=== PATIENT | female | born 1985 | race Caucasian/White ===

== ENCOUNTER 2016-11-04 23:28 | Emergency (ER) | payer OTHER ==
--- NOTE | 2016-11-05 04:10 | ED CLINICAL REPORT ---
Clinical Report - Physicians/Mid Levels [facility] [address] [place] [address] 11/04/2016 23:30 Patient: HARLEY ACOSTA Time Seen: 2341; initial patient contact. Arrived- By private vehicle. Historian- patient. HISTORY OF PRESENT ILLNESS Chief Complaint: PELVIC PAIN and VAGINAL BLEEDING. This started about 2 days ago and now gone. It was abrupt in onset. The symptoms are described as mild. Modifying factors. Not worsened by anything. Not relieved by anything. The patient has had mild, constant, sharp suprapubic pelvic pain with vaginal bleeding. No vaginal discharge or fever. No vaginal pain, low back pain, flank pain, irregular periods or abnormal bleeding. No vaginal discharge. The patient missed her last period (6 weeks ago). Last normal menstrual period was 4 weeks ago. Sexually active. Possibly . Recently diagnosed. confirmed with home test. Not receiving care. Similar symptoms previously: None. Recent medical care: Not recently seen/assessed. REVIEW OF SYSTEMS The patient has had nausea. No vomiting, diarrhea, fever or chills. All systems otherwise negative, except as recorded above. PAST HISTORY See nurses notes. Surgeries: No history of previous surgery. Additional Surgeries: no known surgeries. SOCIAL HISTORY Former smoker. No alcohol use or drug use. ADDITIONAL NOTES The nursing notes have been reviewed with agreement regarding the chief complaint, PMH and patient medications and allergies. PHYSICAL EXAM Vital Signs: 11/04/2016 23:35 BP: 127/71. HR: 107. RR: 16. O2 saturation: 100%. Temp: 98.8 F. Pain level now: 6/10. Have been reviewed. Hypertensive. Tachycardic. Respiratory rate normal. Temperature normal. Oxygen saturation normal. Appearance: Alert. Oriented X3. No acute distress. ENT: Pharynx normal. CVS: Heart sounds normal. Rate normal. Rhythm normal. Respiratory: No respiratory distress. Breath sounds normal. Abdomen: Soft. Mild tenderness in the suprapubic area. No guarding or rebound tenderness. Bowel sounds normal. No mass. Back: Normal external inspection. No CVA tenderness. : Speculum and bimanual exam performed. External inspection normal. Speculum exam normal. Bimanual exam normal. (Female RN Anca Sharp present for pelvic exam). Skin: Normal skin color. Neuro: Oriented X 3. LABS, X-RAYS, AND EKG Pelvic Sonogram: No ectopic or free fluid. Single IUP ~ 3.5 weeks. The study was interpreted by the radiologist and discussed with the radiologist. Laboratory Tests: Serum Quantitative: (NATALIE: 11/05/2016 00:01) ( [facility] [place] 11/05/2016 01:10) Final results Test Result Flag Units (Reference) BETA HCG, QUANTITATIVE 3727 mIU/mL REFERENCE RANGE:Adult Males: <2 mIU/mLNon- Females: <6 mIU/mL Females:Approximate Approximate hCGGestational Age Range (mIU/mL) 0-1 week 0-501-2 weeks 40-3002-3 weeks 100-27626-9 weeks 500-01241-3 months 5,000-200,0002-3 months 10,000-100,0002nd trimester 3,000-50,0003rd trimester 1,000-50,000 UA-Culture if indicated: (NATALIE: 11/04/2016 00:01) ( [facility] 11/05/2016 00:58) Final results Test Result Flag Units (Reference) URINE COLOR ORANGE URINE APPEARANCE SL CLOUDY URINE GLUCOSE 1+ (NEGATIVE) URINE BILIRUBIN NEGATIVE (NEGATIVE) URINE BILIRUBIN ICTOTEST NEGATIVE (NEGATIVE) URINE KETONE TRACE (NEGATIVE) URINE SPECIFIC GRAVITY 1.010 (1.010-1.030) URINE PH 5.0 (5.0-8.0) URINE PROTEIN 3+ (NEGATIVE) URINE UROBILINOGEN >=8.0 EU/dL (0.2-1.0) POSSIBLE COLOR INTERFERENCE URINE NITRITE POSITIVE (NEGATIVE) POSSIBLE COLOR INTERFERENCE URINE BLOOD 3+ (NEGATIVE) POSSIBLE COLOR INTERFERENCE URINE LEUK ESTERASE POSITIVE (NEGATIVE) POSSIBLE COLOR INTERFERENCE URINE RBC 1-3 rbc/hpf (0-1) URINE WBC 3-5 wbc/hpf (0-1) URINE EPITHELIAL CELLS 1-3 EPI/hpf (0-5) URINE BACTERIA TRACE (<1+) (NONE SEEN) URINE COMMENT CULTURE INDICATED URINE CULTURES ARE SET-UP BASED ON THE FOLLOWING CRITERIA:POSITIVE NITRITEPOSITIVE LEUKOCYTE ESTERASEGREATER THAN 10 WHITE BLOOD CELLSMODERATE (2+) OR GREATER BACTERIA Urine: (NATALIE: 11/04/2016 00:01) ( MsgRcvd 11/05/2016 00:20) Final results Test Result Flag Units (Reference) URINE POSITIVE CBC w Diff: (NATALIE: 11/04/2016 23:45) ( MsgRcvd 11/05/2016 00:09) Final results Test Result Flag Units (Reference) WHITE BLOOD COUNT 12.0 H K/uL (4.5-11.5) RED BLOOD COUNT 4.14 M/uL (4.00-5.20) HEMOGLOBIN 13.4 gm/dL (12.0-16.0) HEMATOCRIT 38.9 % (36.0-46.0) MEAN CELL VOLUME 94 fL (80-100) MEAN CORPUSCULAR HGB 32 pg (26-34) MEAN CORPUSCULAR HGB CONC 34 g/dL (31-37) RED CELL DISTRIBUTION WIDTH 12.5 % (11.6-14.8) PLATELET COUNT 279 K/uL (150-400) NEUTROPHIL % 70.2 % (50-75) LYMPH % 21.1 L % (25-40) MONO % 6.4 % (3-14) EOSINOPHIL % 1.3 % (0-4) BASOPHIL % 1.0 % (0-2) CMP: (NATALIE: 11/04/2016 23:45) ( MsgRcvd 11/05/2016 00:17) Final results Test Result Flag Units (Reference) GLUCOSE 100 mg/dL (70-110) BUN 8 mg/dL (7-18) CREATININE 0.5 L mg/dL (0.6-1.3) Estimated GFR >60 mL/min Estimated GFR- >60 mL/min Note: Persistent reduction over 3 months in eGFR<60 mL/min/1.73 m2 defines CKD. Patients with eGFR values>=60 mL/min/1.73 m2 may also have CKD if evidence ofpersistent proteinuria. Additional information may be foundat www.kidney.org. SODIUM 139 mmol/L (136-145) POTASSIUM 3.8 mmol/L (3.5-5.1) CHLORIDE 103 mmol/L (98-107) CARBON DIOXIDE 26 mmol/L (21-32) CALCIUM 8.7 mg/dL (8.5-10.1) TOTAL PROTEIN 7.7 g/dL (6.4-8.2) ALBUMIN 4.0 g/dL (3.3-5.0) BILIRUBIN, TOTAL 0.3 mg/dL (0.0-1.0) ALKALINE PHOSPHATASE 47 U/L (46-116) AST (SGOT) 16 U/L (15-37) ALT (SGPT) 20 U/L (12-78) Type & Rh: (NATALIE: 11/05/2016 00:01) ( MsgRcvd 11/05/2016 01:05) Final results Test Result Flag Units (Reference) PATIENT BLOOD TYPE A Positive . PROGRESS AND PROCEDURES Disposition: Discharged home in good and improved condition. CLINICAL IMPRESSION First trimester intrauterine ; positive test in emergency department. Acute urinary tract infection with cystitis. No pyelonephritis or hematuria. INSTRUCTIONS Prescription Medications: Cephalexin 500 mg: take 1 capsule orally every 12 hours for 10 days. No refill. vitamins Prenavite Tablets: Take 1 orally every day. Dispense thirty (30). No refils. Substitution is permissible. Follow-up: Screening today revealed the patient's blood pressure to be in the pre-hypertensive range. The patient should follow up with a primary care provider for blood pressure management. Follow-up with: Haja Hassan MD, [facility], , [facility], [address] [place] [address] Follow up in about four days. Call for an appointment. (Electronically signed by Shay Kevin Dr. 11/05/2016 4:15)
--- NOTE | 2016-11-05 04:10 | ED NURSING NOTES ---
Clinical Report - Nurses [facility] [address] [place] [address] 11/04/2016 23:30 Patient: HARLEY ACOSTA TRIAGE Triage time 23:36 Nov 04 2016. Acuity: LEVEL 3. Chief Complaint: VAGINAL DISCHARGE and PAINFUL URINATION, URGENCY and FREQUENCY. 23:36 11/04/16. --23:43 Anca Miller R.N. 23:35 11/04/16. BP: 127/71. HR: 107. RR: 16. O2 saturation: 100%. Temp: 98.8 F. Pain level now: 03/19. --23:43 Anca Miller R.N. Weight: 45.3 kg stated. Height/Length: 63 inches. BMI: 17.7. --23:35 Anca Miller R.N. Medications Dayquil, PRN. --04:28 Ronnie Wakefield R.N. Medication/allergy information source: the patient. --23:43 Anca Miller R.N. Allergies Reglan. --04:28 Ronnie Wakefield R.N. History Arrived by private vehicle. Historian: patient. Accompanied by family. Onset. (2 days ago). ( started AZO tonight, took home test because she is 2 weeks late. Thought she saw a blood clot in urine, not sure). She has had hematuria (possibly). 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 PAST MEDICAL HX: Last normal menstrual period- Sep 23. Currently : 2 home tests. confirmed with home test. G 5. P 1. Ab 3. SOCIAL HX: Former smoker (10/05/16). Occasional alcohol use. No drug use. No infectious disease exposure. ABUSE ASSESSMENT: No report of abuse. SELF HARM ASSESSMENT: A self harm assessment was performed. The patient answered "no" to the question "Have you recently felt down, depressed, or hopeless?", "Have you noticed less interest or pleasure in doing things?", "Do you have thoughts of harming or killing yourself?", "Are you here because you tried to hurt yourself?", "Have you ever tried to hurt yourself before today?", "Have you recently had thoughts about harming or killing others?" and "Do you have any dangerous items in your possession?". FALL RISK ASSESSMENT: Fall risk assessment completed. No fall risk identified. NUTRITIONAL RISK ASSESSMENT: The nutritional risk assessment revealed no deficiencies. FUNCTIONAL ASSESSMENT: Functional assessment: no impairments noted. LEARNING NEEDS ASSESSMENT: The learning needs assessment revealed no barriers. SKIN INTEGRITY ASSESSMENT: Skin integrity risk assessment completed. No skin integrity risk identified. --23:43 Anca Miller R.N. ADDITIONAL SURGERIES: no known surgeries. Interventions ID band on patient. --23:43 Anca Miller R.N. PHYSICAL ASSESSMENT 23:43 11/04/16. Ambulatory to room. GENERAL / NEURO / PSYCH: Alert. Oriented X 4. HEENT: Mucous membranes are pink. RESPIRATORY: Breath sounds within normal limits. CVS: Capillary refill less than 2 seconds. GI / : Abdomen soft. Bowel sounds within normal limits. SKIN: Skin is warm and dry. --23:43 Anca Miller R.N. NURSING PROGRESS NOTES 23:38 11/04/16. The initial plan of care for this patient includes an assessment with efforts to address the presence of pain; impairment of the genitourinary system. This plan of care was discussed with the patient. Patient gowned. Reassurance given to the patient. Two patient identifiers checked. Call light placed in reach. Side rails up x 1. Bed placed in lowest position. Brakes of bed on. Patient ready for evaluation. --23:44 Anca Miller R.N. 23:44 11/04/2016 Site #1 started via IV in the left antecubital space with an 20g angiocath, with aseptic technique and good blood return; one attempt. Blood drawn: rainbow set. Labeled in the presence of the patient and sent to the lab. Saline lock flushed with 10 mL saline. --23:44 Anca Miller R.N. 00:30 11/05/2016 Acetaminophen (APAP) PO Tablets 650 mg given. Allergies verified and confirmed 5 rights. --00:30 Anca Miller R.N. 00:47 11/05/16. PELVIC EXAM: Pelvic exam performed by ED physician. Assisted by one nurse. Preparation: pelvic tray and culture medium; patient placed in lithotomy position. Procedure: speculum and bimanual exam. Scant amount of yellow vaginal discharge noted. Specimens collected and sent to lab: GC, chlamydia and wet prep. No genital lesions noted. No vaginal bleeding noted. No rectal exam performed. Status post-procedure: she was stable. Total time of assist / procedure: 15 minutes. --00:47 Anca Miller R.N. 01:15 11/05/16. Care transferred and report given (to MATEO Trujillo). --01:15 Anca Miller R.N. ( US at bedside). --02:38 Ronnie Wakefield R.N. 03:34 11/05/16. HR: 63. O2 saturation: 100%. --03:34 Ronnie Wakefield R.N. ( Pt asleep in bed wakes to verbal stimuli). --03:34 Ronnie Wakefield R.N. 04:21 11/05/2016 Cephalexin (Cephalexin Monohydrate) PO 500 mg given. Allergies verified and confirmed 5 rights. --04:21 Ronnie Wakefield R.N. DISPOSITION / DISCHARGE Departure time: 0424. Condition at departure: improved. No learning barriers present. Discharge instructions provided and reviewed with the patient and family. Reviewed medication(s) information. The patient was discharged by the physician. She was discharged home and accompanied by family. She left the Emergency Department ambulatory and via private vehicle. Family member driving. ( Pt ambulated on discharge steady on her feet, pt verbalized understanding of discharge instructions and follow up care). --04:27 Ronnie Wakefield R.N. 04:26 11/05/16. BP: 107/69. HR: 76. RR: 16. O2 saturation: 100%. Temp: 97.9 F. Pain level now 0/10. --04:27 Ronnie Wakefield R.N. 04:11/05/2016 Site #1 removed upon discharge. Bandage applied. --04: Ronnie Wakefield R.N. Locked/Released at 11/05/2016 4:53 by Ronnie Wakefield R.N.
--- NOTE | 2016-11-05 04:10 | ED CLINICAL REPORT ---
Clinical Report - Physicians/Mid Levels [facility] [address] [place] [address] 11/04/2016 23:30 Patient: HARLEY ACOSTA Time Seen: 2341; initial patient contact. Arrived- By private vehicle. Historian- patient. HISTORY OF PRESENT ILLNESS Chief Complaint: PELVIC PAIN and VAGINAL BLEEDING. This started about 2 days ago and now gone. It was abrupt in onset. The symptoms are described as mild. Modifying factors. Not worsened by anything. Not relieved by anything. The patient has had mild, constant, sharp suprapubic pelvic pain with vaginal bleeding. No vaginal discharge or fever. No vaginal pain, low back pain, flank pain, irregular periods or abnormal bleeding. No vaginal discharge. The patient missed her last period (6 weeks ago). Last normal menstrual period was 4 weeks ago. Sexually active. Possibly . Recently diagnosed. confirmed with home test. Not receiving care. Similar symptoms previously: None. Recent medical care: Not recently seen/assessed. REVIEW OF SYSTEMS The patient has had nausea. No vomiting, diarrhea, fever or chills. All systems otherwise negative, except as recorded above. PAST HISTORY See nurses notes. Surgeries: No history of previous surgery. Additional Surgeries: no known surgeries. SOCIAL HISTORY Former smoker. No alcohol use or drug use. ADDITIONAL NOTES The nursing notes have been reviewed with agreement regarding the chief complaint, PMH and patient medications and allergies. PHYSICAL EXAM Vital Signs: 11/04/2016 23:35 BP: 127/71. HR: 107. RR: 16. O2 saturation: 100%. Temp: 98.8 F. Pain level now: 6/10. Have been reviewed. Hypertensive. Tachycardic. Respiratory rate normal. Temperature normal. Oxygen saturation normal. Appearance: Alert. Oriented X3. No acute distress. ENT: Pharynx normal. CVS: Heart sounds normal. Rate normal. Rhythm normal. Respiratory: No respiratory distress. Breath sounds normal. Abdomen: Soft. Mild tenderness in the suprapubic area. No guarding or rebound tenderness. Bowel sounds normal. No mass. Back: Normal external inspection. No CVA tenderness. : Speculum and bimanual exam performed. External inspection normal. Speculum exam normal. Bimanual exam normal. (Female RN Anca Sharp present for pelvic exam). Skin: Normal skin color. Neuro: Oriented X 3. LABS, X-RAYS, AND EKG Pelvic Sonogram: No ectopic or free fluid. Single IUP ~ 3.5 weeks. The study was interpreted by the radiologist and discussed with the radiologist. Laboratory Tests: Serum Quantitative: (NATALIE: 11/05/2016 00:01) ( [facility] 11/[facility] 01:10) Final results Test Result Flag Units (Reference) BETA HCG, QUANTITATIVE 3727 mIU/mL REFERENCE RANGE:Adult Males: <2 mIU/mLNon- Females: <6 mIU/mL Females:Approximate Approximate hCGGestational Age Range (mIU/mL) 0-1 week 0-501-2 weeks 40-3002-3 weeks 100-01545-1 weeks 500-74446-4 months 5,000-200,0002-3 months 10,000-100,0002nd trimester 3,000-50,0003rd trimester 1,000-50,000 UA-Culture if indicated: (NATALIE: 11/04/2016 00:01) ( [facility] 11/05/2016 00:58) Final results Test Result Flag Units (Reference) URINE COLOR ORANGE URINE APPEARANCE SL CLOUDY URINE GLUCOSE 1+ (NEGATIVE) URINE BILIRUBIN NEGATIVE (NEGATIVE) URINE BILIRUBIN ICTOTEST NEGATIVE (NEGATIVE) URINE KETONE TRACE (NEGATIVE) URINE SPECIFIC GRAVITY 1.010 (1.010-1.030) URINE PH 5.0 (5.0-8.0) URINE PROTEIN 3+ (NEGATIVE) URINE UROBILINOGEN >=8.0 EU/dL (0.2-1.0) POSSIBLE COLOR INTERFERENCE URINE NITRITE POSITIVE (NEGATIVE) POSSIBLE COLOR INTERFERENCE URINE BLOOD 3+ (NEGATIVE) POSSIBLE COLOR INTERFERENCE URINE LEUK ESTERASE POSITIVE (NEGATIVE) POSSIBLE COLOR INTERFERENCE URINE RBC 1-3 rbc/hpf (0-1) URINE WBC 3-5 wbc/hpf (0-1) URINE EPITHELIAL CELLS 1-3 EPI/hpf (0-5) URINE BACTERIA TRACE (<1+) (NONE SEEN) URINE COMMENT CULTURE INDICATED URINE CULTURES ARE SET-UP BASED ON THE FOLLOWING CRITERIA:POSITIVE NITRITEPOSITIVE LEUKOCYTE ESTERASEGREATER THAN 10 WHITE BLOOD CELLSMODERATE (2+) OR GREATER BACTERIA Urine: (NATALIE: 11/04/2016 00:01) ( MsgRcvd 11/05/2016 00:20) Final results Test Result Flag Units (Reference) URINE POSITIVE CBC w Diff: (NATALIE: 11/04/2016 23:45) ( MsgRcvd 11/05/2016 00:09) Final results Test Result Flag Units (Reference) WHITE BLOOD COUNT 12.0 H K/uL (4.5-11.5) RED BLOOD COUNT 4.14 M/uL (4.00-5.20) HEMOGLOBIN 13.4 gm/dL (12.0-16.0) HEMATOCRIT 38.9 % (36.0-46.0) MEAN CELL VOLUME 94 fL (80-100) MEAN CORPUSCULAR HGB 32 pg (26-34) MEAN CORPUSCULAR HGB CONC 34 g/dL (31-37) RED CELL DISTRIBUTION WIDTH 12.5 % (11.6-14.8) PLATELET COUNT 279 K/uL (150-400) NEUTROPHIL % 70.2 % (50-75) LYMPH % 21.1 L % (25-40) MONO % 6.4 % (3-14) EOSINOPHIL % 1.3 % (0-4) BASOPHIL % 1.0 % (0-2) CMP: (NATALIE: 11/04/2016 23:45) ( MsgRcvd 11/05/2016 00:17) Final results Test Result Flag Units (Reference) GLUCOSE 100 mg/dL (70-110) BUN 8 mg/dL (7-18) CREATININE 0.5 L mg/dL (0.6-1.3) Estimated GFR >60 mL/min Estimated GFR- >60 mL/min Note: Persistent reduction over 3 months in eGFR<60 mL/min/1.73 m2 defines CKD. Patients with eGFR values>=60 mL/min/1.73 m2 may also have CKD if evidence ofpersistent proteinuria. Additional information may be foundat www.kidney.org. SODIUM 139 mmol/L (136-145) POTASSIUM 3.8 mmol/L (3.5-5.1) CHLORIDE 103 mmol/L (98-107) CARBON DIOXIDE 26 mmol/L (21-32) CALCIUM 8.7 mg/dL (8.5-10.1) TOTAL PROTEIN 7.7 g/dL (6.4-8.2) ALBUMIN 4.0 g/dL (3.3-5.0) BILIRUBIN, TOTAL 0.3 mg/dL (0.0-1.0) ALKALINE PHOSPHATASE 47 U/L (46-116) AST (SGOT) 16 U/L (15-37) ALT (SGPT) 20 U/L (12-78) Type & Rh: (NATALIE: 11/05/2016 00:01) ( MsgRcvd 11/05/2016 01:05) Final results Test Result Flag Units (Reference) PATIENT BLOOD TYPE A Positive . PROGRESS AND PROCEDURES Disposition: Discharged home in good and improved condition. CLINICAL IMPRESSION First trimester intrauterine ; positive test in emergency department. Acute urinary tract infection with cystitis. No pyelonephritis or hematuria. INSTRUCTIONS Prescription Medications: Cephalexin 500 mg: take 1 capsule orally every 12 hours for 10 days. No refill. vitamins Prenavite Tablets: Take 1 orally every day. Dispense thirty (30). No refils. Substitution is permissible. Follow-up: Screening today revealed the patient's blood pressure to be in the pre-hypertensive range. The patient should follow up with a primary care provider for blood pressure management. Follow-up with: Haja Hassan MD, [facility], , [facility], [address] [place] [address] Follow up in about four days. Call for an appointment. (Electronically signed by Shay Kevin Dr. 11/05/2016 4:15)
--- NOTE | 2016-11-05 04:10 | ED ORDER SUMMARY ---
..... Patient: HARLEY ACOSTA OrderSheet [facility] VisitID: [id number] [address] [place] [address] 31y, F Registration Date/Time: 11/04/2016 ORDER SHEET Weight: 45.3 kg (stated) Allergies: Reglan GENERAL ORDERS: CBC w Diff Urgent (23:58 11/04/2016 Amber Conroy) (23:59 EInderbitzen R.N.) CMP Urgent (23:58 11/04/2016 Amber Conroy) (23:59 EInderbitzen R.N.) UA-Culture if indicated Urgent (23:58 11/04/2016 Amber Conroy) (0:04 EInderbitzen R.N.) Urine Urgent (23:58 11/04/2016 Amber Conroy) (0:04 EInderbitzen R.N.) Serum Quantitative Urgent (00:24 11/05/2016 Amber Conroy) (Ack 0:25 Nini ER Journeyman Machinist) (0:26 Selmaerty ER Journeyman Machinist) Type & Rh Urgent (00:24 11/05/2016 Amber Conroy) (Ack 0:25 Nini ER Journeyman Machinist) (0:26 Nini ER Journeyman Machinist) US OB 1st Trimester w Transvag (09/23/16) Urgent (01:16 11/05/2016 Amber Conroy) (Ack 1:20 Selmaerty ER Journeyman Machinist) (3:01 Nini ER Journeyman Machinist) MEDICATION ORDERS: Acetaminophen PO 650 mg (NOW) (00:29 11/05/2016 EInderbitzen R.N. verbal order read back to Amber Conroy) (0:30 EInderbitzen R.N.) Cephalexin PO 500 mg (NOW) (04:09 11/05/2016 Amber Conroy) (4:21 DBeyer R.N.) IV FLUIDS: IV Saline Lock (23:58 11/04/2016 Amber Conroy) (0:01 EInderbitzen R.N.) ORDER SHEET NOTES: [Electronically signed by Shay Kevin Dr. (04:15 11/05/2016)] [Electronically signed by Ronnie Wakefield R.N. (04:52 11/05/2016)] [Electronically locked/signed by Ronnie Wakefield R.N. (04:52 11/05/2016)]
--- NOTE | 2016-11-05 04:10 | ED ORDER SUMMARY ---
..... Patient: HARLEY ACOSTA OrderSheet [facility] VisitID: [id number] [address] [place] [address] 31y, F Registration Date/Time: 11/04/2016 ORDER SHEET Weight: 45.3 kg (stated) Allergies: Reglan GENERAL ORDERS: CBC w Diff Urgent (23:58 11/04/2016 Amber Conroy) (23:59 EInderbitzen R.N.) CMP Urgent (23:58 11/04/2016 Amber Conroy) (23:59 EInderbitzen R.N.) UA-Culture if indicated Urgent (23:58 11/04/2016 Amber Conroy) (0:04 EInderbitzen R.N.) Urine Urgent (23:58 11/04/2016 Amber Conroy) (0:04 EInderbitzen R.N.) Serum Quantitative Urgent (00:24 11/05/2016 Amber Conroy) (Ack 0:25 Nini ER Mortgage Operations Manager) (0:26 Selmaerty ER Mortgage Operations Manager) Type & Rh Urgent (00:24 11/05/2016 Amber Conroy) (Ack 0:25 Nini ER Mortgage Operations Manager) (0:26 Nini ER Mortgage Operations Manager) US OB 1st Trimester w Transvag (09/23/16) Urgent (01:16 11/05/2016 Amber Conroy) (Ack 1:20 Selmaerty ER Mortgage Operations Manager) (3:01 Nini ER Mortgage Operations Manager) MEDICATION ORDERS: Acetaminophen PO 650 mg (NOW) (00:29 11/05/2016 EInderbitzen R.N. verbal order read back to Amber Conroy) (0:30 EInderbitzen R.N.) Cephalexin PO 500 mg (NOW) (04:09 11/05/2016 Amber Conroy) (4:21 DBeyer R.N.) IV FLUIDS: IV Saline Lock (23:58 11/04/2016 Amber Conroy) (0:01 EInderbitzen R.N.) ORDER SHEET NOTES: [Electronically signed by Shay Kevin Dr. (04:15 11/05/2016)] [Electronically signed by Ronnie Wakefield R.N. (04:52 11/05/2016)] [Electronically locked/signed by Ronnie Wakefield R.N. (04:52 11/05/2016)]
--- NOTE | 2016-11-05 04:53 | ED MAR SUMMARY ---
..... Medication Administration [facility] [address] [place] [address] Patient: HARLEY ACOSTA Visit ID: [id number] 31y, F Weight: 45.3 kg Height/Length: 63 in BMI: 17.7 ALLERGIES: Reglan Given 00:30 11/05/2016 Anca Miller RSilvestre Medication Administered: ACETAMINOPHEN [PO] (APAP), Dose: 650 mg Tablets PO. Medication Ordered: Acetaminophen PO 650 mg (NOW). Given 04:21 11/05/2016 Ronnie Wakefield RNikoleNNikole Medication Administered: CEPHALEXIN [PO] (CEPHALEXIN MONOHYDRATE), Dose: 500 mg PO. Medication Ordered: Cephalexin PO 500 mg (NOW).
--- NOTE | 2016-11-05 04:53 | ED DISCHARGE INSTRUCTIONS ---
Patient: HARLEY ACOSTA General Instructions [facility] VisitID: [id number] Carlos [place]aurie [place] [id number] 31y, F Registration Date/Time: 11/04/2016 First trimester intrauterine ; positive test in emergency department. Acute urinary tract infection with cystitis. No pyelonephritis or hematuria. INSTRUCTIONS Prescription Medications: Cephalexin 500 mg: take 1 capsule orally every 12 hours for 10 days. No refill. vitamins Prenavite Tablets: Take 1 orally every day. Dispense thirty (30). No refils. Substitution is permissible. Follow-up: Screening today revealed the patient's blood pressure to be in the pre-hypertensive range. The patient should follow up with a primary care provider for blood pressure management. Follow-up with: Haja Hassan MD, [facility], , [facility], [address] [place] [address] Follow up in about four days. Call for an appointment. ADDITIONAL INFORMATION Your exam today shows that you are . During , it is normal to develop tender swollen breasts, frequent urination and mild vaginal discharge. During the first three months, nausea is common. Guidelines For A Healthy : To ensure that your baby is born healthy there are certain things that you can do: When you feel tired, you should REST. This is especially true in the later months of . Your body needs more FLUIDS than you may be used to: You should drink 8-10 glasses of juice, milk or water. Eat well-balanced MEALS at regular intervals to supply your body with enough protein. You can expect a total weight gain of about 30 pounds during the . Do not try to diet or lose weight while you are . Because of the extra nutritional needs during , take one VITAMIN daily. Do not take any other MEDICINE during your (prescribed or [id number]-zrbzdkb) unless your doctor specifically recommends this. Many drugs can have harmful effects on the growing baby. If NAUSEA or VOMITING become a problem, avoid greasy and fried foods. Eat several smaller meals throughout the day rather than three large meals. If you SMOKE, you must stop. The nicotine you breathe in goes right to the baby. Stay away from ALCOHOL, even in moderate amounts. Daily drinking will harm your baby and can cause permanent brain damage. RECREATIONAL DRUGS are harmful, especially cocaine, crack, and heroin. Marijuana should also be avoided. If you were using recreational drugs or prescribed medicine when you found out that you were , talk to your doctor about possible effects on the fetus. Follow Up: Call to arrange for care. This can be provided by your family doctor, an supervisor of instruction ( specialist) or a primary care clinic. Get Prompt Medical Attention if any of the following occur: Vaginal bleeding Moderate or severe abdominal or back pain Excessive vomiting, unable to keep any fluids down for six hours Burning with urination Headache, dizziness or rapid weight gain Your exam today shows that you are . During , it is normal to develop tender swollen breasts, frequent urination and mild vaginal discharge. During the first three months, nausea is common. Guidelines For A Healthy : To ensure that your baby is born healthy there are certain things that you can do: When you feel tired, you should REST. This is especially true in the later months of . Your body needs more FLUIDS than you may be used to: You should drink 8-10 glasses of juice, milk or water. Eat well-balanced MEALS at regular intervals to supply your body with enough protein. You can expect a total weight gain of about 30 pounds during the . Do not try to diet or lose weight while you are . Because of the extra nutritional needs during , take one VITAMIN daily. Do not take any other MEDICINE during your (prescribed or [id number]-rdpuvjm) unless your doctor specifically recommends this. Many drugs can have harmful effects on the growing baby. If NAUSEA or VOMITING become a problem, avoid greasy and fried foods. Eat several smaller meals throughout the day rather than three large meals. If you SMOKE, you must stop. The nicotine you breathe in goes right to the baby. Stay away from ALCOHOL, even in moderate amounts. Daily drinking will harm your baby and can cause permanent brain damage. RECREATIONAL DRUGS are harmful, especially cocaine, crack, and heroin. Marijuana should also be avoided. If you were using recreational drugs or prescribed medicine when you found out that you were , talk to your doctor about possible effects on the fetus. Follow Up: Call to arrange for care. This can be provided by your family doctor, an supervisor of instruction ( specialist) or a primary care clinic. Get Prompt Medical Attention if any of the following occur: Vaginal bleeding Moderate or severe abdominal or back pain Excessive vomiting, unable to keep any fluids down for six hours Burning with urination Headache, dizziness or rapid weight gain Bladder Infection,Female (Adult) A bladder infection ("cystitis" or "UTI") usually causes a constant urge to urinate and a burning when passing urine. Urine may be cloudy, smelly or dark. There may be pain in the lower abdomen. A bladder infection occurs when bacteria from the vaginal area enter the bladder opening (urethra). This can occur from sexual intercourse, wearing tight clothing, dehydration and other factors. Home Care: Drink lots of fluids (at least 6-8 glasses a day, unless you must restrict fluids for other medical reasons). This will force the medicine into your urinary system and flush the bacteria out of your body. Avoid sexual intercourse until your symptoms are gone. Avoid caffeine, alcohol and spicy foods. These can irritate the bladder. A bladder infection is treated with antibiotics. You may also be given Pyridium (generic = phenazopyridine) to reduce the burning sensation. This medicine will cause your urine to become a bright orange color. The orange urine may stain clothing. You may wear a pad or panty-liner to protect clothing. Preventing Future Infections: Always wipe from front to back after a bowel movement. Keep the genital area clean and dry. Drink plenty of fluids each day to avoid dehydration. Both sexual partners should wash before intercourse. Urinate right after intercourse to flush out the bladder. Wear cotton underwear and cotton-lined panty hose; avoid tight-fitting pants. If you are on control pills and are having frequent bladder infections, discuss with your doctor. Follow Up: Return to this facility or see your doctor if ALL symptoms are not gone after three days of treatment. Get Prompt Medical Attention if any of the following occur: Fever of 100.4F (38C) or higher, or as directed by your healthcare provider No improvement by the third day of treatment Increasing back or abdominal pain Repeated vomiting; unable to keep medicine down Weakness, dizziness or fainting Vaginal discharge Pain, redness or swelling in the labia (outer vaginal area) Cephalexin Monohydrate Oral tablet What is this medicine? CEPHALEXIN (sef a ELZA in) is a cephalosporin antibiotic. It is used to treat certain kinds of bacterial infections It will not work for colds, flu, or other viral infections. How should I use this medicine? Take this medicine by mouth with a full glass of water. Follow the directions on the prescription label. This medicine can be taken with or without food. Take your medicine at regular intervals. Do not take your medicine more often than directed. Take all of your medicine as directed even if you think you are better. Do not skip doses or stop your medicine early. Talk to your manager environmental affairs regarding the use of this medicine in children. While this drug may be prescribed for selected conditions, precautions do apply. What side effects may I notice from receiving this medicine? Side effects that you should report to your doctor or health career discovery teacher as soon as possible: allergic reactions like skin rash, itching or hives, swelling of the face, lips, or tongue breathing problems pain or trouble passing urine redness, blistering, peeling or loosening of the skin, including inside the mouth severe or watery diarrhea unusually weak or tired yellowing of the eyes, skin Side effects that usually do not require medical attention (report to your doctor or health career discovery teacher if they continue or are bothersome): gas or heartburn genital or anal irritation headache joint or muscle pain nausea, vomiting What may interact with this medicine? probenecid some other antibiotics What if I miss a dose? If you miss a dose, take it as soon as you can. If it is almost time for your next dose, take only that dose. Do not take double or extra doses. There should be at least 4 to 6 hours between doses. Where should I keep my medicine? Keep out of the reach of children. Store at room temperature between 59 and 86 degrees F (15 and 30 degrees C). Throw away any unused medicine after the expiration date. What should I tell my health care provider before I take this medicine? They need to know if you have any of these conditions: kidney disease stomach or intestine problems, especially colitis an unusual or allergic reaction to cephalexin, other cephalosporins, penicillins, other antibiotics, medicines, foods, dyes or preservatives or trying to get breast-feeding What should I watch for while using this medicine? Tell your doctor or health career discovery teacher if your symptoms do not begin to improve in a few days. Do not treat diarrhea with over the counter products. Contact your doctor if you have diarrhea that lasts more than 2 days or if it is severe and watery. If you have diabetes, you may get a false-positive result for sugar in your urine. Check with your doctor or health career discovery teacher. You have been given the following additional information: , New Dx , New Dx Bladder Infection, Female (Adult) Cephalexin Monohydrate Oral tablet (Electronically signed by Shay Kevin Dr. 11/05/2016 4:15)
--- NOTE | 2016-11-05 04:53 | ED DISCHARGE INSTRUCTIONS ---
Patient: HARLEY ACOSTA General Instructions [facility] VisitID: [id number] Carlos Hale[place]ise V[place] [phone] 31y, F Registration Date/Time: 11/04/2016 First trimester intrauterine ; positive test in emergency department. Acute urinary tract infection with cystitis. No pyelonephritis or hematuria. INSTRUCTIONS Prescription Medications: Cephalexin 500 mg: take 1 capsule orally every 12 hours for 10 days. No refill. vitamins Prenavite Tablets: Take 1 orally every day. Dispense thirty (30). No refils. Substitution is permissible. Follow-up: Screening today revealed the patient's blood pressure to be in the pre-hypertensive range. The patient should follow up with a primary care provider for blood pressure management. Follow-up with: Haja Hassan MD, [facility], , [facility], [address] [place] [address] Follow up in about four days. Call for an appointment. ADDITIONAL INFORMATION Your exam today shows that you are . During , it is normal to develop tender swollen breasts, frequent urination and mild vaginal discharge. During the first three months, nausea is common. Guidelines For A Healthy : To ensure that your baby is born healthy there are certain things that you can do: When you feel tired, you should REST. This is especially true in the later months of . Your body needs more FLUIDS than you may be used to: You should drink 8-10 glasses of juice, milk or water. Eat well-balanced MEALS at regular intervals to supply your body with enough protein. You can expect a total weight gain of about 30 pounds during the . Do not try to diet or lose weight while you are . Because of the extra nutritional needs during , take one VITAMIN daily. Do not take any other MEDICINE during your (prescribed or sjee-mdl-swnnjyq) unless your doctor specifically recommends this. Many drugs can have harmful effects on the growing baby. If NAUSEA or VOMITING become a problem, avoid greasy and fried foods. Eat several smaller meals throughout the day rather than three large meals. If you SMOKE, you must stop. The nicotine you breathe in goes right to the baby. Stay away from ALCOHOL, even in moderate amounts. Daily drinking will harm your baby and can cause permanent brain damage. RECREATIONAL DRUGS are harmful, especially cocaine, crack, and heroin. Marijuana should also be avoided. If you were using recreational drugs or prescribed medicine when you found out that you were , talk to your doctor about possible effects on the fetus. Follow Up: Call to arrange for care. This can be provided by your family doctor, an straight truck driver ( specialist) or a primary care clinic. Get Prompt Medical Attention if any of the following occur: Vaginal bleeding Moderate or severe abdominal or back pain Excessive vomiting, unable to keep any fluids down for six hours Burning with urination Headache, dizziness or rapid weight gain Your exam today shows that you are . During , it is normal to develop tender swollen breasts, frequent urination and mild vaginal discharge. During the first three months, nausea is common. Guidelines For A Healthy : To ensure that your baby is born healthy there are certain things that you can do: When you feel tired, you should REST. This is especially true in the later months of . Your body needs more FLUIDS than you may be used to: You should drink 8-10 glasses of juice, milk or water. Eat well-balanced MEALS at regular intervals to supply your body with enough protein. You can expect a total weight gain of about 30 pounds during the . Do not try to diet or lose weight while you are . Because of the extra nutritional needs during , take one VITAMIN daily. Do not take any other MEDICINE during your (prescribed or avhf-vgh-yukrtbs) unless your doctor specifically recommends this. Many drugs can have harmful effects on the growing baby. If NAUSEA or VOMITING become a problem, avoid greasy and fried foods. Eat several smaller meals throughout the day rather than three large meals. If you SMOKE, you must stop. The nicotine you breathe in goes right to the baby. Stay away from ALCOHOL, even in moderate amounts. Daily drinking will harm your baby and can cause permanent brain damage. RECREATIONAL DRUGS are harmful, especially cocaine, crack, and heroin. Marijuana should also be avoided. If you were using recreational drugs or prescribed medicine when you found out that you were , talk to your doctor about possible effects on the fetus. Follow Up: Call to arrange for care. This can be provided by your family doctor, an straight truck driver ( specialist) or a primary care clinic. Get Prompt Medical Attention if any of the following occur: Vaginal bleeding Moderate or severe abdominal or back pain Excessive vomiting, unable to keep any fluids down for six hours Burning with urination Headache, dizziness or rapid weight gain Bladder Infection,Female (Adult) A bladder infection ("cystitis" or "UTI") usually causes a constant urge to urinate and a burning when passing urine. Urine may be cloudy, smelly or dark. There may be pain in the lower abdomen. A bladder infection occurs when bacteria from the vaginal area enter the bladder opening (urethra). This can occur from sexual intercourse, wearing tight clothing, dehydration and other factors. Home Care: Drink lots of fluids (at least 6-8 glasses a day, unless you must restrict fluids for other medical reasons). This will force the medicine into your urinary system and flush the bacteria out of your body. Avoid sexual intercourse until your symptoms are gone. Avoid caffeine, alcohol and spicy foods. These can irritate the bladder. A bladder infection is treated with antibiotics. You may also be given Pyridium (generic = phenazopyridine) to reduce the burning sensation. This medicine will cause your urine to become a bright orange color. The orange urine may stain clothing. You may wear a pad or panty-liner to protect clothing. Preventing Future Infections: Always wipe from front to back after a bowel movement. Keep the genital area clean and dry. Drink plenty of fluids each day to avoid dehydration. Both sexual partners should wash before intercourse. Urinate right after intercourse to flush out the bladder. Wear cotton underwear and cotton-lined panty hose; avoid tight-fitting pants. If you are on control pills and are having frequent bladder infections, discuss with your doctor. Follow Up: Return to this facility or see your doctor if ALL symptoms are not gone after three days of treatment. Get Prompt Medical Attention if any of the following occur: Fever of 100.4F (38C) or higher, or as directed by your healthcare provider No improvement by the third day of treatment Increasing back or abdominal pain Repeated vomiting; unable to keep medicine down Weakness, dizziness or fainting Vaginal discharge Pain, redness or swelling in the labia (outer vaginal area) Cephalexin Monohydrate Oral tablet What is this medicine? CEPHALEXIN (sef a ELZA in) is a cephalosporin antibiotic. It is used to treat certain kinds of bacterial infections It will not work for colds, flu, or other viral infections. How should I use this medicine? Take this medicine by mouth with a full glass of water. Follow the directions on the prescription label. This medicine can be taken with or without food. Take your medicine at regular intervals. Do not take your medicine more often than directed. Take all of your medicine as directed even if you think you are better. Do not skip doses or stop your medicine early. Talk to your objects conservator regarding the use of this medicine in children. While this drug may be prescribed for selected conditions, precautions do apply. What side effects may I notice from receiving this medicine? Side effects that you should report to your doctor or health career development counselor as soon as possible: allergic reactions like skin rash, itching or hives, swelling of the face, lips, or tongue breathing problems pain or trouble passing urine redness, blistering, peeling or loosening of the skin, including inside the mouth severe or watery diarrhea unusually weak or tired yellowing of the eyes, skin Side effects that usually do not require medical attention (report to your doctor or health career development counselor if they continue or are bothersome): gas or heartburn genital or anal irritation headache joint or muscle pain nausea, vomiting What may interact with this medicine? probenecid some other antibiotics What if I miss a dose? If you miss a dose, take it as soon as you can. If it is almost time for your next dose, take only that dose. Do not take double or extra doses. There should be at least 4 to 6 hours between doses. Where should I keep my medicine? Keep out of the reach of children. Store at room temperature between 59 and 86 degrees F (15 and 30 degrees C). Throw away any unused medicine after the expiration date. What should I tell my health care provider before I take this medicine? They need to know if you have any of these conditions: kidney disease stomach or intestine problems, especially colitis an unusual or allergic reaction to cephalexin, other cephalosporins, penicillins, other antibiotics, medicines, foods, dyes or preservatives or trying to get breast-feeding What should I watch for while using this medicine? Tell your doctor or health career development counselor if your symptoms do not begin to improve in a few days. Do not treat diarrhea with over the counter products. Contact your doctor if you have diarrhea that lasts more than 2 days or if it is severe and watery. If you have diabetes, you may get a false-positive result for sugar in your urine. Check with your doctor or health career development counselor. You have been given the following additional information: , New Dx , New Dx Bladder Infection, Female (Adult) Cephalexin Monohydrate Oral tablet (Electronically signed by Shay Kevin Dr. 11/05/2016 4:15)
--- NOTE | 2016-11-05 04:53 | ED MED RECONCILIATION SUMMARY ---
Patient: HARLEY ACOSTA Medication Reconciliation Report [facility] VisitID: [id number] [address] [place] [address] 31y, F Registration Date/Time: 11/04/2016 Weight: 45.3 kg Height/Length: 63 in. BMI: 17.7 ALLERGIES: Reglan The patient's Home Medications are listed below: THE FOLLOWING MEDICATIONS NEED TO BE RECONCILED: CATALINA Lee The source(s) of the original Home Medication information: patient The following Medications were given to the patient in the Emergency Department: Acetaminophen [PO] PO 650 mg, administered: 11/05/2016 12:30:00 AM Cephalexin [PO] PO 500 mg, administered: 11/05/2016 4:21:00 AM The following Medications were prescribed to the patient: Cephalexin 500 mg: take 1 capsule orally every 12 hours for 10 days. No refill. -- Shay Kevin Dr. vitamins Prenavite Tablets: Take 1 orally every day. Dispense thirty (30). No refils. Substitution is permissible. -- Shay Kevin Dr.
--- NOTE | 2016-11-05 04:53 | ED MED RECONCILIATION SUMMARY ---
Patient: HARLEY ACOSTA Medication Reconciliation Report [facility] VisitID: [id number] [address] [place] [address] 31y, F Registration Date/Time: 11/04/2016 Weight: 45.3 kg Height/Length: 63 in. BMI: 17.7 ALLERGIES: Reglan The patient's Home Medications are listed below: THE FOLLOWING MEDICATIONS NEED TO BE RECONCILED: CATALINA Lee The source(s) of the original Home Medication information: patient The following Medications were given to the patient in the Emergency Department: Acetaminophen [PO] PO 650 mg, administered: 11/05/2016 12:30:00 AM Cephalexin [PO] PO 500 mg, administered: 11/05/2016 4:21:00 AM The following Medications were prescribed to the patient: Cephalexin 500 mg: take 1 capsule orally every 12 hours for 10 days. No refill. -- Shay Kevin Dr. vitamins Prenavite Tablets: Take 1 orally every day. Dispense thirty (30). No refils. Substitution is permissible. -- Shay Kevin Dr.
--- NOTE | 2016-11-05 04:53 | ED MAR SUMMARY ---
..... Medication Administration Record [facility] [address] [place] [address] Patient: HARLEY ACOSTA Visit ID: [id number] 31y, F Weight: 45.3 kg Height/Length: 63 in BMI: 17.7 ALLERGIES: Reglan Given 00:30 11/05/2016 Anca Miller RSilvestre Medication Administered: ACETAMINOPHEN [PO] (APAP), Dose: 650 mg Tablets PO. Medication Ordered: Acetaminophen PO 650 mg (NOW). Given 04:21 11/05/2016 Ronnie Wakefield RNikoleNNikole Medication Administered: CEPHALEXIN [PO] (CEPHALEXIN MONOHYDRATE), Dose: 500 mg PO. Medication Ordered: Cephalexin PO 500 mg (NOW).
--- NOTE | 2016-11-05 06:51 | DIAGNOSTIC IMAGING REPORT ---
PROCEDURE: US OB 1ST TRIMESTER W/TRANSVAG INDICATION: UTI. Bleeding. HCG level 3200. TECHNIQUE: Quintero scale, color, and spectral Doppler transabdominal and endovaginal sonographic images of the first trimester gravid uterus were obtained. COMPARISON: None. FINDINGS: TRANSABDOMINAL SCANS: Increase endometrial thickness. Uterus is of normal size (8.5 x 4.0 cm). Kidneys are normal size (right 10.2 cm, left and 0.4 cm). TRANSVAGINAL SCANS: There is a small fundal intrauterine sac with probable double decidual reaction (0.5 cm, 5.3 weeks). No evidence of pole or yolk sac. There is a 2.5 cm right corpus luteum cyst. IMPRESSION: 1. There is an intrauterine sac which most likely represents an early intrauterine gestational sac (5.3 weeks). No evidence of pole or yolk sac at this early age. 2. There is a 2.5 cm right corpus luteum cyst.
== END 2016-11-05 04:24 | disposition home or self-care (01) ==
LOC: ED SRH 23:28
DX: O23.31 Infections of other parts of urinary tract in pregnancy, first trimester (principal); N30.90 Cystitis, unspecified without hematuria; N39.0 Urinary tract infection, site not specified; Z3A.01 Less than 8 weeks gestation of pregnancy; Z88.8 Allergy status to other drugs, medicaments and biological substances
CPT/HCPCS: 90001; 90004; 90100; 90148; 90155; 90197; 90469; 93070; 95059

== ENCOUNTER 2016-11-08 18:49 | Emergency (ER) | payer OTHER ==
--- NOTE | 2016-11-08 19:02 | ED CLINICAL REPORT ---
Clinical Report - Physicians/Mid Levels [facility] [address] [place] [place] [address] 11/08/2016 18:49 Patient: HARLEY ACOSTA Time Seen: 18:52 Nov 08 2016. Arrived- By private vehicle. Historian- patient. HISTORY OF PRESENT ILLNESS Chief Complaint: BACK PAIN. Onset was just prior to arrival. Patient denies an injury. ( Current female, , with low back pain, has been recently constipated, has good recent bowel movement. Approximately 8 weeks IUP now, last ventral. Around early September. Denies any fevers or chills. Denies any urgency frequency.). REVIEW OF SYSTEMS No fever, chills, difficulty with urination, sore throat or cough. All systems otherwise negative, except as recorded above. SOCIAL HISTORY Never smoker. No alcohol use. ADDITIONAL NOTES The nursing notes have been reviewed. PHYSICAL EXAM Vital Signs: 11/08/2016 18:57 BP: 103/66. HR: 75. RR: 16. O2 saturation: 100%. Temp: 98.7 F. Pain level now: 5/10. Appearance: Alert. Eyes: Pupils equal, round and reactive to light. ENT: Ears normal. Neck: Normal inspection. CVS: Heart sounds normal. Respiratory: No respiratory distress. Breath sounds normal. Abdomen: No visible injury. Soft. No mass. No rebound tenderness. Skin: Skin warm. Normal skin color. Neuro: Oriented X 3. PROGRESS AND PROCEDURES Course of Care: Here in the air patient is larger with an Gio and somatic no complaints at this time, the range of motion of the lower back. No CVA tenderness, no urgency or frequency. Patient with recent good bowel movements. Was recently rollerblading, with no fall. Has no vaginal bleeding or pelvic pain. To f/u as scheduled mid nov. No signs of acute surgical abd. 11/08/2016 18:57 BP: 103/66. HR: 75. RR: 16. O2 saturation: 100%. Temp: 98.7 F. Pain level now: 5/10. Patient is stable. Physical exam findings are unchanged. The patient's symptoms are unchanged. Patient/family counseled. Disposition: Discharged. CLINICAL IMPRESSION Early, first trimester intrauterine . Acute lumbar back pain associated with muscle strain. Constipation INSTRUCTIONS Apply ice. (ice/heat Tylenol Increase fiber/ metamucil/ stool softeners Take probiotics). OTC Medications: Acetaminophen (available over the counter): take according to label instructions. (Electronically signed by Sharon Thacker P.A.-C 11/08/2016 21:08)
--- NOTE | 2016-11-08 19:02 | ED CLINICAL REPORT ---
Clinical Report - Physicians/Mid Levels [facility] [address] [place] [place] [address] 11/08/2016 18:49 Patient: HARLEY ACOSTA Time Seen: 18:52 Nov 08 2016. Arrived- By private vehicle. Historian- patient. HISTORY OF PRESENT ILLNESS Chief Complaint: BACK PAIN. Onset was just prior to arrival. Patient denies an injury. ( Current female, , with low back pain, has been recently constipated, has good recent bowel movement. Approximately 8 weeks IUP now, last ventral. Around early September. Denies any fevers or chills. Denies any urgency frequency.). REVIEW OF SYSTEMS No fever, chills, difficulty with urination, sore throat or cough. All systems otherwise negative, except as recorded above. SOCIAL HISTORY Never smoker. No alcohol use. ADDITIONAL NOTES The nursing notes have been reviewed. PHYSICAL EXAM Vital Signs: 11/08/2016 18:57 BP: 103/66. HR: 75. RR: 16. O2 saturation: 100%. Temp: 98.7 F. Pain level now: 5/10. Appearance: Alert. Eyes: Pupils equal, round and reactive to light. ENT: Ears normal. Neck: Normal inspection. CVS: Heart sounds normal. Respiratory: No respiratory distress. Breath sounds normal. Abdomen: No visible injury. Soft. No mass. No rebound tenderness. Skin: Skin warm. Normal skin color. Neuro: Oriented X 3. PROGRESS AND PROCEDURES Course of Care: Here in the air patient is larger with an Gio and somatic no complaints at this time, the range of motion of the lower back. No CVA tenderness, no urgency or frequency. Patient with recent good bowel movements. Was recently rollerblading, with no fall. Has no vaginal bleeding or pelvic pain. To f/u as scheduled mid nov. No signs of acute surgical abd. 11/08/2016 18:57 BP: 103/66. HR: 75. RR: 16. O2 saturation: 100%. Temp: 98.7 F. Pain level now: 5/10. Patient is stable. Physical exam findings are unchanged. The patient's symptoms are unchanged. Patient/family counseled. Disposition: Discharged. CLINICAL IMPRESSION Early, first trimester intrauterine . Acute lumbar back pain associated with muscle strain. Constipation INSTRUCTIONS Apply ice. (ice/heat Tylenol Increase fiber/ metamucil/ stool softeners Take probiotics). OTC Medications: Acetaminophen (available over the counter): take according to label instructions. (Electronically signed by Sharon Thacker P.A.-C 11/08/2016 21:08)
--- NOTE | 2016-11-08 19:02 | ED NURSING NOTES ---
Clinical Report - Nurses [facility] [address] [place] [address] 11/08/2016 18:49 Patient: HARLEY ACOSTA TRIAGE Triage time 1859 PM. Chief Complaint: BACK PAIN. Alert. No acute distress. EWELINA COMA SCORE: Ewelina Coma Scale: 15- eyes open spontaneously (4); best verbal response- oriented x 4 (5); best motor response- obeys commands (6). --19:02 Montana Najera R.N. 18:57 11/08/16. BP: 103/66 taken on the left arm, via an automated monitor, while lying. HR: 75. RR: 16. O2 saturation: 100%. Temp: 98.7 F (oral). Pain level now: 02/16. --19:02 Montana Najera R.N. Weight: 45.3 kg stated. Height/Length: 63 inches Per Patient. BMI: 17.7. --19:02 Montana Najera R.N. Medications Dayquil, PRN. --18:58 Montana Najera R.N. 1 Oral. --18:59 Montana Najera R.N. Allergies Reglan. --18:58 Montana Najera R.N. History Arrived by private vehicle. Historian: patient. Accompanied by family. This started today. ( Patient presents to the ED with symptoms of lower back/coccyx pain. Patient states that she is experiencing constipation for the past 4 days. Patient states that she is 5 weeks . Patient also states that she went roller skating yesterday.). Treatment RN BSN: (laxatives). SOCIAL HX: Never smoker. Alcohol use. (no). History of drug use. (no). FALL RISK ASSESSMENT: Fall risk assessment completed. No fall risk identified. NUTRITIONAL RISK ASSESSMENT: The nutritional risk assessment revealed no deficiencies. FUNCTIONAL ASSESSMENT: Functional assessment: no impairments noted. LEARNING NEEDS ASSESSMENT: The learning needs assessment revealed no barriers. SKIN INTEGRITY ASSESSMENT: Skin integrity risk assessment completed. No skin integrity risk identified. --19:02 Montana Najera R.N. PROBLEMS: UTI - Urinary Tract Infection. Intrauterine . . Bronchitis. --18:59 Montana Najera R.N. ADDITIONAL SURGERIES: no known surgeries. Interventions ID band on patient. --19:02 Montana Najera R.N. PHYSICAL ASSESSMENT Ambulatory to room. GENERAL / NEURO / PSYCH: Alert. Oriented X 4. Appears in no acute distress. RESPIRATORY: Respirations not labored. Chest nontender. Breath sounds within normal limits. CVS: Normal heart rate and rhythm. Capillary refill less than 2 seconds. GI / : Abdomen soft and nontender. Bowel sounds within normal limits. EXTREMITIES: Sensation intact in extremities. ROM of extremities within normal limits. BACK: Limited ROM of the back. ROM of neck and back within normal limits. Soft tissue tenderness in the right lower and left lower lumbar paraspinous region. --19:03 Montana Najera R.N. NURSING PROGRESS NOTES Call light placed in reach. Side rails up x 1. Bed placed in lowest position. Brakes of bed on. --19:03 Montana Najera R.N. DISPOSITION / DISCHARGE Condition at departure: improved. The goals identified in the patient's plan of care were met. No learning barriers present. Reviewed medication(s) side effects, precautions, dosing and course information. Prescription(s) given to the patient (Tylenol). Reviewed need for increased fluid intake. Patient verbalized understanding. Written instructions provided in Greek. The patient was discharged home and accompanied by spouse. She left the Emergency Department ambulatory and via private vehicle. Spouse driving. FALL RISK ASSESSMENT: Fall risk assessment completed. No fall risk identified. --19:08 Montana Najera R.N. Departure time: 1908 PM. --19:09 Montana Najera R.N. Locked/Released at 11/08/2016 19:12 by Montana Najera R.N.
--- NOTE | 2016-11-08 19:02 | ED NURSING NOTES ---
Clinical Report - Nurses [facility] [address] [place] [address] 11/08/2016 18:49 Patient: HARLEY ACOSTA TRIAGE Triage time 1859 PM. Chief Complaint: BACK PAIN. Alert. No acute distress. EWELINA COMA SCORE: Ewelina Coma Scale: 15- eyes open spontaneously (4); best verbal response- oriented x 4 (5); best motor response- obeys commands (6). --19:02 Montana Najera R.N. 18:57 11/08/16. BP: 103/66 taken on the left arm, via an automated monitor, while lying. HR: 75. RR: 16. O2 saturation: 100%. Temp: 98.7 F (oral). Pain level now: 02/16. --19:02 Montana Najera R.N. Weight: 45.3 kg stated. Height/Length: 63 inches Per Patient. BMI: 17.7. --19:02 Montana Najera R.N. Medications Dayquil, PRN. --18:58 Montana Najera R.N. 1 Oral. --18:59 Montana Najera R.N. Allergies Reglan. --18:58 Montana Najera R.N. History Arrived by private vehicle. Historian: patient. Accompanied by family. This started today. ( Patient presents to the ED with symptoms of lower back/coccyx pain. Patient states that she is experiencing constipation for the past 4 days. Patient states that she is 5 weeks . Patient also states that she went roller skating yesterday.). Treatment [employer]END[employer]: (laxatives). SOCIAL HX: Never smoker. Alcohol use. (no). History of drug use. (no). FALL RISK ASSESSMENT: Fall risk assessment completed. No fall risk identified. NUTRITIONAL RISK ASSESSMENT: The nutritional risk assessment revealed no deficiencies. FUNCTIONAL ASSESSMENT: Functional assessment: no impairments noted. LEARNING NEEDS ASSESSMENT: The learning needs assessment revealed no barriers. SKIN INTEGRITY ASSESSMENT: Skin integrity risk assessment completed. No skin integrity risk identified. --19:02 Montana Najera R.N. PROBLEMS: UTI - Urinary Tract Infection. Intrauterine . . Bronchitis. --18:59 Montana Najera R.N. ADDITIONAL SURGERIES: no known surgeries. Interventions ID band on patient. --19:02 Montana Najera R.N. PHYSICAL ASSESSMENT Ambulatory to room. GENERAL / NEURO / PSYCH: Alert. Oriented X 4. Appears in no acute distress. RESPIRATORY: Respirations not labored. Chest nontender. Breath sounds within normal limits. CVS: Normal heart rate and rhythm. Capillary refill less than 2 seconds. GI / : Abdomen soft and nontender. Bowel sounds within normal limits. EXTREMITIES: Sensation intact in extremities. ROM of extremities within normal limits. BACK: Limited ROM of the back. ROM of neck and back within normal limits. Soft tissue tenderness in the right lower and left lower lumbar paraspinous region. --19:03 Montana Najera R.N. NURSING PROGRESS NOTES Call light placed in reach. Side rails up x 1. Bed placed in lowest position. Brakes of bed on. --19:03 Montana Najera R.N. DISPOSITION / DISCHARGE Condition at departure: improved. The goals identified in the patient's plan of care were met. No learning barriers present. Reviewed medication(s) side effects, precautions, dosing and course information. Prescription(s) given to the patient (Tylenol). Reviewed need for increased fluid intake. Patient verbalized understanding. Written instructions provided in Belarusian. The patient was discharged home and accompanied by spouse. She left the Emergency Department ambulatory and via private vehicle. Spouse driving. FALL RISK ASSESSMENT: Fall risk assessment completed. No fall risk identified. --19:08 Montana Najera R.N. Departure time: 1908 PM. --19:09 Montana Najera R.N. Locked/Released at 11/08/2016 19:12 by Montana Najera R.N.
--- NOTE | 2016-11-08 21:08 | ED DISCHARGE INSTRUCTIONS ---
Patient: HARLEY ACOSTA General Instructions [facility] VisitID: [id number] [place] [address] 31y, F Registration Date/Time: 11/08/2016 Early, first trimester intrauterine . Acute lumbar back pain associated with muscle strain. Constipation INSTRUCTIONS Apply ice. (ice/heat Tylenol Increase fiber/ metamucil/ stool softeners Take probiotics). OTC Medications: Acetaminophen (available over the counter): take according to label instructions. ADDITIONAL INFORMATION Back Pain [Acute Or Chronic] Back pain is usually caused by an injury to the muscles or ligaments of the spine. Sometimes the disks that separate each bone in the spine may bulge and cause pain by pressing on a nearby nerve. Back pain may also appear after a sudden twisting/bending force (such as in a car accident), after a simple awkward movement, or lifting something heavy with poor body positioning. In either case, muscle spasm is often present and adds to the pain. Acute back pain usually gets better in one to two weeks. Back pain related to disk disease, arthritis in the spinal joints or spinal stenosis (narrowing of the spinal canal) can become chronic and last for months or years. Unless you had a physical injury (for example, a car accident or fall) X-rays are usually not ordered for the initial evaluation of back pain. If pain continues and does not respond to medical treatment, x-rays and other tests may be performed at a later time. Home Care: You may need to stay in bed the first few days. But, as soon as possible, begin sitting or walking to avoid problems with prolonged bed rest (muscle weakness, worsening back stiffness and pain, blood clots in the legs). When in bed, try to find a position of comfort. A firm mattress is best. Try lying flat on your back with pillows under your knees. You can also try lying on your side with your knees bent up towards your chest and a pillow between your knees. Avoid prolonged sitting. This puts more stress on the lower back than standing or walking. During the first two days after injury, apply an ICE PACK to the painful area for 20 minutes every 2-4 hours. This will reduce swelling and pain. HEAT (hot shower, hot bath or heating pad) works well for muscle spasm. You can start with ice, then switch to heat after two days. Some patients feel best alternating ice and heat treatments. Use the one method that feels the best to you. You may use acetaminophen (Tylenol) or ibuprofen (Motrin, Advil) to control pain, unless another pain medicine was prescribed. [NOTE: If you have chronic liver or kidney disease or ever had a stomach ulcer or GI bleeding, talk with your doctor before using these medicines.] Be aware of safe lifting methods and do not lift anything over 15 pounds until all the pain is gone. Follow Up with your doctor or this facility if your symptoms do not start to improve after one week. Physical therapy may be needed. [NOTE: If X-rays were taken, they will be reviewed by a radiologist. You will be notified of any new findings that may affect your care.] Get Prompt Medical Attention if any of the following occur: Pain becomes worse or spreads to your legs Weakness or numbness in one or both legs Loss of bowel or bladder control Numbness in the groin or genital area Your exam today shows that you are . During , it is normal to develop tender swollen breasts, frequent urination and mild vaginal discharge. During the first three months, nausea is common. Guidelines For A Healthy : To ensure that your baby is born healthy there are certain things that you can do: When you feel tired, you should REST. This is especially true in the later months of . Your body needs more FLUIDS than you may be used to: You should drink 8-10 glasses of juice, milk or water. Eat well-balanced MEALS at regular intervals to supply your body with enough protein. You can expect a total weight gain of about 30 pounds during the . Do not try to diet or lose weight while you are . Because of the extra nutritional needs during , take one VITAMIN daily. Do not take any other MEDICINE during your (prescribed or [id number]) unless your doctor specifically recommends this. Many drugs can have harmful effects on the growing baby. If NAUSEA or VOMITING become a problem, avoid greasy and fried foods. Eat several smaller meals throughout the day rather than three large meals. If you SMOKE, you must stop. The nicotine you breathe in goes right to the baby. Stay away from ALCOHOL, even in moderate amounts. Daily drinking will harm your baby and can cause permanent brain damage. RECREATIONAL DRUGS are harmful, especially cocaine, crack, and heroin. Marijuana should also be avoided. If you were using recreational drugs or prescribed medicine when you found out that you were , talk to your doctor about possible effects on the fetus. Follow Up: Call to arrange for care. This can be provided by your family doctor, an mold forms builder ( specialist) or a primary care clinic. Get Prompt Medical Attention if any of the following occur: Vaginal bleeding Moderate or severe abdominal or back pain Excessive vomiting, unable to keep any fluids down for six hours Burning with urination Headache, dizziness or rapid weight gain Your exam today shows that you are . During , it is normal to develop tender swollen breasts, frequent urination and mild vaginal discharge. During the first three months, nausea is common. Guidelines For A Healthy : To ensure that your baby is born healthy there are certain things that you can do: When you feel tired, you should REST. This is especially true in the later months of . Your body needs more FLUIDS than you may be used to: You should drink 8-10 glasses of juice, milk or water. Eat well-balanced MEALS at regular intervals to supply your body with enough protein. You can expect a total weight gain of about 30 pounds during the . Do not try to diet or lose weight while you are . Because of the extra nutritional needs during , take one VITAMIN daily. Do not take any other MEDICINE during your (prescribed or [id number]-[id number]) unless your doctor specifically recommends this. Many drugs can have harmful effects on the growing baby. If NAUSEA or VOMITING become a problem, avoid greasy and fried foods. Eat several smaller meals throughout the day rather than three large meals. If you SMOKE, you must stop. The nicotine you breathe in goes right to the baby. Stay away from ALCOHOL, even in moderate amounts. Daily drinking will harm your baby and can cause permanent brain damage. RECREATIONAL DRUGS are harmful, especially cocaine, crack, and heroin. Marijuana should also be avoided. If you were using recreational drugs or prescribed medicine when you found out that you were , talk to your doctor about possible effects on the fetus. Follow Up: Call to arrange for care. This can be provided by your family doctor, an mold forms builder ( specialist) or a primary care clinic. Get Prompt Medical Attention if any of the following occur: Vaginal bleeding Moderate or severe abdominal or back pain Excessive vomiting, unable to keep any fluids down for six hours Burning with urination Headache, dizziness or rapid weight gain Constipation (Adult) Constipation is bowel movements that are less frequent than usual. Stools often become very hard and difficult to pass. This may lead to abdominal pain and bloating. It may also cause painful bowel movements. Constipation may be due to a diet thats low in fiber. Some medications, especially pain medications, can also cause it. Constipation may be treated with enemas, suppositories, laxatives or stool softeners. Your doctor will advise you which will work best for you. Follow the advice below to help avoid this problem in the future. Home Care Medication: Take any medicines as directed. Some laxatives are safe only for occasional use. Others can be taken on a regular basis. Talk to your doctor or pharmacist if you have questions. General Care: Prescription pain medications can cause constipation. If you are prescribed pain medications, ask the doctor whether you should also take a stool softener. A diet high in fiber with plenty of fluids helps to maintain regular, soft bowel movements. The following foods are good sources of dietary fiber: Cereals and breads: Whole grain cereal with bran, oatmeal, rolled oats, whole grain breads Fruits: All fruits (fresh and dried), raisins, prunes, apricots, berries, figs Vegetables: Any fresh vegetables, especially peas, broccoli, brussels sprouts, winter squash, green beans, cauliflower, acuña beans, carrots Other: Popcorn, brown rice Drink plenty of water when you increase the amount of fiber you eat. Follow Up with your doctor or return to this facility if symptoms do not improve in the next few days. You may require further tests or a referral to a specialist. Get Prompt Medical Attention if any of the following occur: Fever over 100.4F (38C) Failure to resume normal bowel movements Increasing abdominal or back pain Nausea or vomiting Abdominal swelling Blood in the stool Weakness, dizziness or fainting Unexpected vaginal bleeding You have been given the following additional information: Back Pain (Acute Or Chronic) , New Dx , New Dx Constipation (Adult) (Electronically signed by Sharon Thacker P.A.-C 11/08/2016 21:08)
--- NOTE | 2016-11-08 21:08 | ED MAR SUMMARY ---
..... Medication Administration Record [facility] [address] [place], [place] [id number] Patient: HARLEY ACOSTA Visit ID: [id number] 31y, F Weight: 45.3 kg Height/Length: 63 in BMI: 17.7 ALLERGIES: Reglan
--- NOTE | 2016-11-08 21:08 | ED MED RECONCILIATION SUMMARY ---
Patient: HARLEY ACOSTA Medication Reconciliation Report [facility] VisitID: [id number] [address] [place] [address] 31y, F Registration Date/Time: 11/08/2016 Weight: 45.3 kg Height/Length: 63 in. BMI: 17.7 ALLERGIES: Reglan The patient's Home Medications are listed below: THE FOLLOWING MEDICATIONS NEED TO BE RECONCILED: Dayquil, PRN 1 Oral The source(s) of the original Home Medication information: Not obtained. The following Medications were given to the patient in the Emergency Department: None. The following Medications were prescribed to the patient: Acetaminophen (available over the counter): take according to label instructions. -- Sharon Thacker PNikoleATezC
--- NOTE | 2016-11-08 21:08 | ED MED RECONCILIATION SUMMARY ---
Patient: HARLEY ACOSTA Medication Reconciliation Report [facility] VisitID: [id number] [address] [place] [address] 31y, F Registration Date/Time: 11/08/2016 Weight: 45.3 kg Height/Length: 63 in. BMI: 17.7 ALLERGIES: Reglan The patient's Home Medications are listed below: THE FOLLOWING MEDICATIONS NEED TO BE RECONCILED: Dayquil, PRN 1 Oral The source(s) of the original Home Medication information: Not obtained. The following Medications were given to the patient in the Emergency Department: None. The following Medications were prescribed to the patient: Acetaminophen (available over the counter): take according to label instructions. -- Sharon Thacker PNikoleATezC
--- NOTE | 2016-11-08 21:08 | ED MAR SUMMARY ---
..... Medication Administration Record [facility] [address] [place], [place] [id number] Patient: HARLEY ACOSTA Visit ID: [id number] 31y, F Weight: 45.3 kg Height/Length: 63 in BMI: 17.7 ALLERGIES: Reglan
== END 2016-11-08 19:07 | disposition home or self-care (01) ==
LOC: ED SRH 18:49
DX: O99.89 Other specified diseases and conditions complicating pregnancy, childbirth and the puerperium (principal); S39.012A Strain of muscle, fascia and tendon of lower back, initial encounter; K59.00 Constipation, unspecified; X58.XXXA Exposure to other specified factors, initial encounter; Y99.9 Unspecified external cause status; Y92.9 Unspecified place or not applicable; Y93.9 Activity, unspecified; Z3A.08 8 weeks gestation of pregnancy

== ENCOUNTER 2016-11-23 19:25 | Emergency (ER) | payer OTHER ==
--- NOTE | 2016-11-23 21:28 | ED CLINICAL REPORT ---
Clinical Report - Physicians/Mid Levels Formerly [facility] [address] [place] [place] [address] 11/23/2016 19:27 Patient: HARLEY ACOSTA Arrived- By private vehicle. Historian- patient. HISTORY OF PRESENT ILLNESS Chief Complaint: VAGINAL BLEEDING and PELVIC PAIN. This started today. She has had pelvic pain and moderate vaginal bleeding. Is still present (staying the same). It was abrupt in onset and has been constant but is not gone now. No vaginal discharge. Gestational age is weeks, (9.5 weeks about). ( 4Ab. patient reports hx of "tubal "). Similar symptoms previously: Recent medical care: Not recently seen/assessed. REVIEW OF SYSTEMS No vomiting, diarrhea, black stools, bloody stools or fever. No skin rash. All systems otherwise negative, except as recorded above. PAST HISTORY See nurses notes. SOCIAL HISTORY Smoker- current status unknown. No alcohol use or drug use. No recent travel. Is a local resident. ADDITIONAL NOTES The nursing notes have been reviewed. PHYSICAL EXAM Vital Signs: 11/23/2016 19:33 BP: 114/48. HR: 84. RR: 16. O2 saturation: 100%. Temp: 98.1 F. Pain level now: 8/10. Blood pressure normal. Oxygen saturation normal. Appearance: Alert. Oriented X3. No acute distress. HEENT: Normal external inspection. Eyes: No pale conjunctivae. ENT: Pharynx normal. Neck: Neck supple. CVS: Heart sounds normal. Respiratory: No respiratory distress. Breath sounds normal. Chest nontender. Abdomen: Soft and nontender. Bowel sounds normal. No mass. (unable to palpate fundus). Pelvic: FHTs: 156. (pelvic examination performed with [place] RN at all times. Exam was significant for dark red blood in the posterior vaginal vault. Cervix is closed. No adnexal masses. No cervical motion tenderness. No abnormal discharge. Normal-appearing external female genitalia. Possible small amount of products of conception. No clots.). Skin: Skin warm and dry. Normal skin color. No rash. Normal skin turgor. Extremities: Extremities nontender. No pathologic edema. LABS, X-RAYS, AND EKG Pelvic Sonogram: An intrauterine is present. Adnexa normal. No free fluid. No ectopic . The study was independently viewed by me and interpreted contemporaneously by me. Laboratory Tests: UA-Culture if indicated: (NATALIE: 11/23/2016 20:15) ( [facility] 11/23/2016 20:44) Final results Test Result Flag Units (Reference) URINE COLOR RED URINE APPEARANCE CLOUDY URINE GLUCOSE NEGATIVE (NEGATIVE) URINE BILIRUBIN NEGATIVE (NEGATIVE) URINE KETONE NEGATIVE (NEGATIVE) URINE SPECIFIC GRAVITY >= 1.030 (1.010-1.030) URINE PH 6.0 (5.0-8.0) URINE PROTEIN 3+ (NEGATIVE) URINE UROBILINOGEN 0.2 EU/dL (0.2-1.0) URINE NITRITE NEGATIVE (NEGATIVE) URINE BLOOD 3+ (NEGATIVE) URINE LEUK ESTERASE NEGATIVE (NEGATIVE) URINE RBC >100 (TNTC) rbc/hpf (0-1) URINE WBC 5-10 wbc/hpf (0-1) URINE EPITHELIAL CELLS 5-10 EPI/hpf (0-5) URINE BACTERIA FEW (1+) (NONE SEEN) URINE COMMENT CULT NOT INDICATED URINE CULTURES ARE SET-UP BASED ON THE FOLLOWING CRITERIA:POSITIVE NITRITEPOSITIVE LEUKOCYTE ESTERASEGREATER THAN 10 WHITE BLOOD CELLSMODERATE (2+) OR GREATER BACTERIA CBC w Diff: (NATALIE: 11/23/2016 20:10) ( [facility] 11/23/2016 20:29) Final results Test Result Flag Units (Reference) WHITE BLOOD COUNT 12.1 H K/uL (4.5-11.5) RED BLOOD COUNT 3.85 L M/uL (4.00-5.20) HEMOGLOBIN 12.3 gm/dL (12.0-16.0) HEMATOCRIT 36.0 % (36.0-46.0) MEAN CELL VOLUME 94 fL (80-100) MEAN CORPUSCULAR HGB 32 pg (26-34) MEAN CORPUSCULAR HGB CONC 34 g/dL (31-37) RED CELL DISTRIBUTION WIDTH 13.1 % (11.6-14.8) PLATELET COUNT 257 K/uL (150-400) NEUTROPHIL % 68.0 % (50-75) LYMPH % 21.8 L % (25-40) MONO % 8.0 % (3-14) EOSINOPHIL % 1.7 % (0-4) BASOPHIL % 0.5 % (0-2) CMP: (NATALIE: 11/23/2016 20:10) ( MsgRcvd 11/23/2016 21:00) Final results Test Result Flag Units (Reference) GLUCOSE 91 mg/dL (70-110) BUN 9 mg/dL (7-18) CREATININE 0.6 mg/dL (0.6-1.3) Estimated GFR >60 mL/min Estimated GFR- >60 mL/min Note: Persistent reduction over 3 months in eGFR<60 mL/min/1.73 m2 defines CKD. Patients with eGFR values>=60 mL/min/1.73 m2 may also have CKD if evidence ofpersistent proteinuria. Additional information may be foundat [email or web address].org. SODIUM 135 L mmol/L (136-145) POTASSIUM 3.7 mmol/L (3.5-5.1) CHLORIDE 99 mmol/L (98-107) CARBON DIOXIDE 26 mmol/L (21-32) CALCIUM 8.8 mg/dL (8.5-10.1) TOTAL PROTEIN 7.2 g/dL (6.4-8.2) ALBUMIN 3.6 g/dL (3.3-5.0) BILIRUBIN, TOTAL 0.7 mg/dL (0.0-1.0) ALKALINE PHOSPHATASE 44 L U/L (46-116) AST (SGOT) 16 U/L (15-37) ALT (SGPT) 23 U/L (12-78) BETA HCG, QUANTITATIVE 79714 mIU/mL REFERENCE RANGE:Adult Males: <2 mIU/mLNon- Females: <6 mIU/mL Females:Approximate Approximate hCGGestational Age Range (mIU/mL) 0-1 week 0-501-2 weeks 40-3002-3 weeks 100-25281-9 weeks 500-36312-7 months 5,000-200,0002-3 months 10,000-100,0002nd trimester 3,000-50,0003rd trimester 1,000-50,000 2017:[id number]: (NATALIE: 11/23/2016 20:50) ( MsgRcvd 11/26/2016 06:07) Final results SPECIMEN DESCRIPTION: BLOODY Test Result Flag Units (Reference) CHLAMYDIA TRACHOMATIS YAAKOV Negative NEISSERIA GONORRHOEAE YAAKOV Negative Performed at: [facility] [id number] Enterprise Systems Engineer: Chris Beauchamp MD, Phone: [phone] Wet Prep: (NATALIE: 11/23/2016 20:50) ( MsgRcvd 11/23/2016 21:15) Final results SPECIMEN DESCRIPTION: BLOODY Test Result Flag Units (Reference) WET MOUNT CLUE CELLS:: NONE EPITHELIAL CELLS: FEW -- SOURCE?: VAGINAL WHITE BLOOD CELLS: FEW TRICHOMONAS:: NONE -- YEAST:: NONE . PROGRESS AND PROCEDURES Course of Care: the patient is a pleasant 31-year-old female who is Rh+ presenting for evaluation of vaginal bleeding and cramping. The differential diagnosis at this time includes ectopic versus normal intrauterine versus . Vital signs here in the emergency department are unremarkable. Patient appears nontoxic. Based on patient's history, there is no immediate concern for massive hemorrhage. Patient was monitored closely. Patient was agreeable to the treatment plan. Workup includes urinalysis, wet prep and gonorrhea/chlamydia, ultrasound, and electrolytes/blood Count. Patient is agreeable to the treatment plan. Patient's workup shows to have a gestational sac. Beta hCG is noted to be increased from her prior visit. The patient had approximately conception noted on speculum examination. No significant amount of active bleeding noted. Cervical os is closed. Discussed the patient likely spontaneous miscarriage versus normal versus ectopic . The latter option is less likely given the ultrasound results and lack of adnexal masses. The patient's pain was controlled here in the emergency department. Discussed the patient workup, diagnosis, home care, follow-up, and return precautions. All questions answered. The patient expressed understanding of these instructions and was agreeable to them. Prior to patient's discharge, she had requested us to examine her right upper extremity. There noted to be ainfiltration of the IV site at that area. No evidence of compartment syndrome. Patient is neurovascularly intact. Recommended warm compresses and close monitoring. Infection risks discussed with patient. Patient expressed understanding of these instructions. Do not the patient is admitted to the hospital require further emergency department workup/evaluation. Patient is agreeable. Disposition: Discharged. Condition: good. CLINICAL IMPRESSION 11/23/2016 21:14 BP: 102/58. HR: 80. RR: 16. O2 saturation: 100%. Blood pressure normal. Oxygen saturation normal. Threatened . (acute). INSTRUCTIONS Warnings: GENERAL WARNINGS: Return or contact your physician immediately if your condition worsens or changes unexpectedly, if not improving as expected, or if other problems arise. Specifically return if pain, vomiting, bleeding, breathing difficulty or fever. Your Current Medications: CONTINUE TAKING THE FOLLOWING MEDICATIONS: Vitamins Oral. Prescription Medications: Percocet 5 mg/325 mg: take 1 tablet orally every 6 hours as needed for pain. Dispense twenty (20). No refill. Substitution is permissible. Follow-up: Return to the emergency department as needed. 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 Reason for referral: recheck today's concerns in 2 - 3 days. Summary of care provided to patient via paper. Follow up with your doctor in three days. Reason for referral: recheck today's concerns. Summary of care provided to patient via paper. Screening today revealed the patient's blood pressure to be in the normal range. The patient should follow up with a primary care provider for blood pressure management. Understanding of the discharge instructions verbalized by patient. (Electronically signed by Jason Sheehan Dr. 11/29/2016 10:20)
--- NOTE | 2016-11-23 21:28 | ED CLINICAL REPORT ---
Clinical Report - Physicians/Mid Levels [facility] [address] [place] [address] 11/23/2016 19:27 Patient: HARLEY ACOSTA Arrived- By private vehicle. Historian- patient. HISTORY OF PRESENT ILLNESS Chief Complaint: VAGINAL BLEEDING and PELVIC PAIN. This started today. She has had pelvic pain and moderate vaginal bleeding. Is still present (staying the same). It was abrupt in onset and has been constant but is not gone now. No vaginal discharge. Gestational age is weeks, (9.5 weeks about). ( 4Ab. patient reports hx of "tubal "). Similar symptoms previously: Recent medical care: Not recently seen/assessed. REVIEW OF SYSTEMS No vomiting, diarrhea, black stools, bloody stools or fever. No skin rash. All systems otherwise negative, except as recorded above. PAST HISTORY See nurses notes. SOCIAL HISTORY Smoker- current status unknown. No alcohol use or drug use. No recent travel. Is a local resident. ADDITIONAL NOTES The nursing notes have been reviewed. PHYSICAL EXAM Vital Signs: 11/23/2016 19:33 BP: 114/48. HR: 84. RR: 16. O2 saturation: 100%. Temp: 98.1 F. Pain level now: 8/10. Blood pressure normal. Oxygen saturation normal. Appearance: Alert. Oriented X3. No acute distress. HEENT: Normal external inspection. Eyes: No pale conjunctivae. ENT: Pharynx normal. Neck: Neck supple. CVS: Heart sounds normal. Respiratory: No respiratory distress. Breath sounds normal. Chest nontender. Abdomen: Soft and nontender. Bowel sounds normal. No mass. (unable to palpate fundus). Pelvic: FHTs: 156. (pelvic examination performed with [place] RN at all times. Exam was significant for dark red blood in the posterior vaginal vault. Cervix is closed. No adnexal masses. No cervical motion tenderness. No abnormal discharge. Normal-appearing external female genitalia. Possible small amount of products of conception. No clots.). Skin: Skin warm and dry. Normal skin color. No rash. Normal skin turgor. Extremities: Extremities nontender. No pathologic edema. LABS, X-RAYS, AND EKG Pelvic Sonogram: An intrauterine is present. Adnexa normal. No free fluid. No ectopic . The study was independently viewed by me and interpreted contemporaneously by me. Laboratory Tests: UA-Culture if indicated: (NATALIE: 11/23/2016 20:15) ( [facility] 11/23/2016 20:44) Final results Test Result Flag Units (Reference) URINE COLOR RED URINE APPEARANCE CLOUDY URINE GLUCOSE NEGATIVE (NEGATIVE) URINE BILIRUBIN NEGATIVE (NEGATIVE) URINE KETONE NEGATIVE (NEGATIVE) URINE SPECIFIC GRAVITY >= 1.030 (1.010-1.030) URINE PH 6.0 (5.0-8.0) URINE PROTEIN 3+ (NEGATIVE) URINE UROBILINOGEN 0.2 EU/dL (0.2-1.0) URINE NITRITE NEGATIVE (NEGATIVE) URINE BLOOD 3+ (NEGATIVE) URINE LEUK ESTERASE NEGATIVE (NEGATIVE) URINE RBC >100 (TNTC) rbc/hpf (0-1) URINE WBC 5-10 wbc/hpf (0-1) URINE EPITHELIAL CELLS 5-10 EPI/hpf (0-5) URINE BACTERIA FEW (1+) (NONE SEEN) URINE COMMENT CULT NOT INDICATED URINE CULTURES ARE SET-UP BASED ON THE FOLLOWING CRITERIA:POSITIVE NITRITEPOSITIVE LEUKOCYTE ESTERASEGREATER THAN 10 WHITE BLOOD CELLSMODERATE (2+) OR GREATER BACTERIA CBC w Diff: (NATALIE: 11/23/2016 20:10) ( [facility] 11/23/2016 20:29) Final results Test Result Flag Units (Reference) WHITE BLOOD COUNT 12.1 H K/uL (4.5-11.5) RED BLOOD COUNT 3.85 L M/uL (4.00-5.20) HEMOGLOBIN 12.3 gm/dL (12.0-16.0) HEMATOCRIT 36.0 % (36.0-46.0) MEAN CELL VOLUME 94 fL (80-100) MEAN CORPUSCULAR HGB 32 pg (26-34) MEAN CORPUSCULAR HGB CONC 34 g/dL (31-37) RED CELL DISTRIBUTION WIDTH 13.1 % (11.6-14.8) PLATELET COUNT 257 K/uL (150-400) NEUTROPHIL % 68.0 % (50-75) LYMPH % 21.8 L % (25-40) MONO % 8.0 % (3-14) EOSINOPHIL % 1.7 % (0-4) BASOPHIL % 0.5 % (0-2) CMP: (NATALIE: 11/23/2016 20:10) ( MsgRcvd 11/23/2016 21:00) Final results Test Result Flag Units (Reference) GLUCOSE 91 mg/dL (70-110) BUN 9 mg/dL (7-18) CREATININE 0.6 mg/dL (0.6-1.3) Estimated GFR >60 mL/min Estimated GFR- >60 mL/min Note: Persistent reduction over 3 months in eGFR<60 mL/min/1.73 m2 defines CKD. Patients with eGFR values>=60 mL/min/1.73 m2 may also have CKD if evidence ofpersistent proteinuria. Additional information may be foundat [email or web address].org. SODIUM 135 L mmol/L (136-145) POTASSIUM 3.7 mmol/L (3.5-5.1) CHLORIDE 99 mmol/L (98-107) CARBON DIOXIDE 26 mmol/L (21-32) CALCIUM 8.8 mg/dL (8.5-10.1) TOTAL PROTEIN 7.2 g/dL (6.4-8.2) ALBUMIN 3.6 g/dL (3.3-5.0) BILIRUBIN, TOTAL 0.7 mg/dL (0.0-1.0) ALKALINE PHOSPHATASE 44 L U/L (46-116) AST (SGOT) 16 U/L (15-37) ALT (SGPT) 23 U/L (12-78) BETA HCG, QUANTITATIVE 79359 mIU/mL REFERENCE RANGE:Adult Males: <2 mIU/mLNon- Females: <6 mIU/mL Females:Approximate Approximate hCGGestational Age Range (mIU/mL) 0-1 week 0-501-2 weeks 40-3002-3 weeks 100-46557-4 weeks 500-76375-8 months 5,000-200,0002-3 months 10,000-100,0002nd trimester 3,000-50,0003rd trimester 1,000-50,000 2017:[id number]: (NATALIE: 11/23/2016 20:50) ( MsgRcvd 11/26/2016 06:07) Final results SPECIMEN DESCRIPTION: BLOODY Test Result Flag Units (Reference) CHLAMYDIA TRACHOMATIS YAAKOV Negative NEISSERIA GONORRHOEAE YAAKOV Negative Performed at: [facility] [id number] Industrial Recruiter: Chris Beauchamp MD, Phone: [phone] Wet Prep: (NATALIE: 11/23/2016 20:50) ( MsgRcvd 11/23/2016 21:15) Final results SPECIMEN DESCRIPTION: BLOODY Test Result Flag Units (Reference) WET MOUNT CLUE CELLS:: NONE EPITHELIAL CELLS: FEW -- SOURCE?: VAGINAL WHITE BLOOD CELLS: FEW TRICHOMONAS:: NONE -- YEAST:: NONE . PROGRESS AND PROCEDURES Course of Care: the patient is a pleasant 31-year-old female who is Rh+ presenting for evaluation of vaginal bleeding and cramping. The differential diagnosis at this time includes ectopic versus normal intrauterine versus . Vital signs here in the emergency department are unremarkable. Patient appears nontoxic. Based on patient's history, there is no immediate concern for massive hemorrhage. Patient was monitored closely. Patient was agreeable to the treatment plan. Workup includes urinalysis, wet prep and gonorrhea/chlamydia, ultrasound, and electrolytes/blood Count. Patient is agreeable to the treatment plan. Patient's workup shows to have a gestational sac. Beta hCG is noted to be increased from her prior visit. The patient had approximately conception noted on speculum examination. No significant amount of active bleeding noted. Cervical os is closed. Discussed the patient likely spontaneous miscarriage versus normal versus ectopic . The latter option is less likely given the ultrasound results and lack of adnexal masses. The patient's pain was controlled here in the emergency department. Discussed the patient workup, diagnosis, home care, follow-up, and return precautions. All questions answered. The patient expressed understanding of these instructions and was agreeable to them. Prior to patient's discharge, she had requested us to examine her right upper extremity. There noted to be ainfiltration of the IV site at that area. No evidence of compartment syndrome. Patient is neurovascularly intact. Recommended warm compresses and close monitoring. Infection risks discussed with patient. Patient expressed understanding of these instructions. Do not the patient is admitted to the hospital require further emergency department workup/evaluation. Patient is agreeable. Disposition: Discharged. Condition: good. CLINICAL IMPRESSION 11/23/2016 21:14 BP: 102/58. HR: 80. RR: 16. O2 saturation: 100%. Blood pressure normal. Oxygen saturation normal. Threatened . (acute). INSTRUCTIONS Warnings: GENERAL WARNINGS: Return or contact your physician immediately if your condition worsens or changes unexpectedly, if not improving as expected, or if other problems arise. Specifically return if pain, vomiting, bleeding, breathing difficulty or fever. Your Current Medications: CONTINUE TAKING THE FOLLOWING MEDICATIONS: Vitamins Oral. Prescription Medications: Percocet 5 mg/325 mg: take 1 tablet orally every 6 hours as needed for pain. Dispense twenty (20). No refill. Substitution is permissible. Follow-up: Return to the emergency department as needed. 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 Reason for referral: recheck today's concerns in 2 - 3 days. Summary of care provided to patient via paper. Follow up with your doctor in three days. Reason for referral: recheck today's concerns. Summary of care provided to patient via paper. Screening today revealed the patient's blood pressure to be in the normal range. The patient should follow up with a primary care provider for blood pressure management. Understanding of the discharge instructions verbalized by patient. (Electronically signed by Jason Sheehan Dr. 11/29/2016 10:20)
--- NOTE | 2016-11-23 21:29 | ED ORDER SUMMARY ---
..... Patient: HARLEY ACOSTA OrderSheet [facility] VisitID: [id number] [place] [address] 31y, F Registration Date/Time: 11/23/2016 ORDER SHEET Weight: 47.6 kg (stated) Allergies: Reglan GENERAL ORDERS: US Pelvic Complete w Transvag Urgent (19:58 11/23/2016 Jayleen Conroy) (Ack 20:01 AMcQuoid ER Tech1) (20:19 HOShaughnessy R.N.) (Cancelled: Wrong Order20:26 HOShaughnessy R.N.) CBC w Diff Urgent (20:00 11/23/2016 Jayleen Conroy) (Ack 20:01 AMcQuoid ER Tech1) (20:19 HOShaughnessy R.N.) CMP Urgent (20:00 11/23/2016 Jayleen Conroy) (Ack 20:01 AMcQuoid ER Tech1) (20:19 HOShaughnessy R.N.) UA-Culture if indicated Urgent (20:00 11/23/2016 Jayleen Conroy) (Ack 20:01 AMcQuoid ER Tech1) (20:19 HOShaughnessy R.N.) Serum Quantitative Urgent (20:00 11/23/2016 Jayleen Conroy) (Ack 20:01 AMcQuoid ER Tech1) (20:19 HOShaughnessy R.N.) Type & Rh Urgent (20:00 11/23/2016 Jayleen Conroy) (Ack 20:01 AMcQuoid ER Tech1) (20:19 HOShaughnessy R.N.) (Cancelled: dupilcate. patient had one in daovmtc97:11 Jayleen Conroy) Pulse oximeter (20:00 11/23/2016 Jayleen Conroy) (Ack 20:01 AMcQuoid ER Tech1) (20:19 HOShaughnessy R.N.) US OB 1st Trimester w Transvag (September 30) Urgent (20:25 11/23/2016 HOShaughnessy R.N. verbal order read back to Jayleen Conroy) (Ack 20:30 AMcQuoid ER Tech1) (20:54 MCampbell) Wet Prep (Vaginal) (bloody) Urgent (20:47 11/23/2016 Jayleen Conroy) (Ack 20:53 AMcQuoid ER Tech1) (21:07 HOShaughaliney R.N.) GC/Chlamydia (Cervix) (bloody) Urgent (20:47 11/23/2016 Jayleen Conroy) (Ack 20:53 AMcQuoid ER Tech1) (21:07 HOShaughdayana R.N.) MEDICATION ORDERS: Phenergan-Codeine PO 10 mL (HIGH ALERT MEDICATION, NOW) (21:02 11/23/2016 Jayleen Conroy) (21:14 HOSjacqui R.N.) IV FLUIDS: IV NS : initial bolus 1000 mL (1000 mL/hr), then none - for X1 (NOW) (19:59 11/23/2016 Jayleen Conroy) (20:20 HOShasmita R.N.) Morphine IV 2 mg (once now. may repeat once in 15 minutes for no change in pain. ) (19:59 11/23/2016 Jayleen Conroy) (20:20 HOShaughnessy R.N.) ORDER SHEET NOTES: [Electronically signed by [place] Najera R.N. (21:47 11/23/2016)] [Electronically signed by Jason Sheehan Dr. (10:20 11/29/2016)] [Electronically locked/signed by [place] Najera R.N. (21:47 11/23/2016)]
--- NOTE | 2016-11-23 21:29 | ED ORDER SUMMARY ---
..... Patient: HARLEY ACOSTA OrderSheet [facility] VisitID: [id number] [place] [address] 31y, F Registration Date/Time: 11/23/2016 ORDER SHEET Weight: 47.6 kg (stated) Allergies: Reglan GENERAL ORDERS: US Pelvic Complete w Transvag Urgent (19:58 11/23/2016 Jayleen Conroy) (Ack 20:01 AMcQuoid ER Tech1) (20:19 HOShaughnessy R.N.) (Cancelled: Wrong Order20:26 HOShaughnessy R.N.) CBC w Diff Urgent (20:00 11/23/2016 Jayleen Conroy) (Ack 20:01 AMcQuoid ER Tech1) (20:19 HOShaughnessy R.N.) CMP Urgent (20:00 11/23/2016 Jayleen Conroy) (Ack 20:01 AMcQuoid ER Tech1) (20:19 HOShaughnessy R.N.) UA-Culture if indicated Urgent (20:00 11/23/2016 Jayleen Conroy) (Ack 20:01 AMcQuoid ER Tech1) (20:19 HOShaughnessy R.N.) Serum Quantitative Urgent (20:00 11/23/2016 Jayleen Conroy) (Ack 20:01 AMcQuoid ER Tech1) (20:19 HOShaughnessy R.N.) Type & Rh Urgent (20:00 11/23/2016 Jayleen Conroy) (Ack 20:01 AMcQuoid ER Tech1) (20:19 HOShaughnessy R.N.) (Cancelled: dupilcate. patient had one in gspycrg30:11 Jayleen Conroy) Pulse oximeter (20:00 11/23/2016 Jayleen Conroy) (Ack 20:01 AMcQuoid ER Tech1) (20:19 HOShaughnessy R.N.) US OB 1st Trimester w Transvag (September 30) Urgent (20:25 11/23/2016 HOShaughnessy R.N. verbal order read back to Jayleen Conroy) (Ack 20:30 AMcQuoid ER Tech1) (20:54 MCampbell) Wet Prep (Vaginal) (bloody) Urgent (20:47 11/23/2016 Jayleen Conroy) (Ack 20:53 AMcQuoid ER Tech1) (21:07 HOShaughaliney R.N.) GC/Chlamydia (Cervix) (bloody) Urgent (20:47 11/23/2016 Jayleen Conroy) (Ack 20:53 AMcQuoid ER Tech1) (21:07 HOShaughdayana R.N.) MEDICATION ORDERS: Phenergan-Codeine PO 10 mL (HIGH ALERT MEDICATION, NOW) (21:02 11/23/2016 Jayleen Conroy) (21:14 HOSjacqui R.N.) IV FLUIDS: IV NS : initial bolus 1000 mL (1000 mL/hr), then none - for X1 (NOW) (19:59 11/23/2016 Jayleen Conroy) (20:20 HOShasmita R.N.) Morphine IV 2 mg (once now. may repeat once in 15 minutes for no change in pain. ) (19:59 11/23/2016 Jayleen Conroy) (20:20 HOShaughnessy R.N.) ORDER SHEET NOTES: [Electronically signed by [place] Najera R.N. (21:47 11/23/2016)] [Electronically signed by Jason Sheehan Dr. (10:20 11/29/2016)] [Electronically locked/signed by [place] Najera R.N. (21:47 11/23/2016)]
--- NOTE | 2016-11-23 21:29 | ED NURSING NOTES ---
Clinical Report - Nurses [facility] [address] [place] [address] 11/23/2016 19:27 Patient: HARLEY ACOSTA TRIAGE Triage time 1913 PM. Acuity: LEVEL 3. Chief Complaint: ABDOMINAL PAIN and CRAMPS and SPOTTING. --19:41 Montana Najera R.N. 19:33 11/23/16. BP: 114/48 taken on the left arm, via an automated monitor, while lying. HR: 84. RR: 16. O2 saturation: 100%. Temp: 98.1 F (oral). Pain level now: 05/19. --19:41 Montana Najera R.N. Alert. No acute distress. --19:41 Montana Najera R.N. Weight: 47.6 kg stated. Height/Length: 63 inches Per Patient. BMI: 18.6. --19:36 Montana Najera R.N. Medications Vitamins Oral. --19:38 Montana Najera R.N. Allergies Reglan.(anxiety) --19:38 Montana Najera R.N. History Arrived by private vehicle. Historian: patient. Accompanied by family. This started today. ( Patient presents to the ED with symptoms of abdominal pain and cramping with dark red spotting and is passing clots beginning today. Patient believes that she is around 9.5 weeks . Patient concerned about a miscarriage. Patient states that she has an appointment with an OB on December 01.). She has had vomiting. The vomiting has occurred numerous times. Last oral intake by patient was (about 1 PM). 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 PAST MEDICAL HX: Last normal menstrual period- September 28. Confirmed . In 1st trimester. confirmed with serum test. Has had care in clinic. She has had care in a hospital. OB history: G 6; P 1; Ab 4. SOCIAL HX: Never smoker. Alcohol use. (no). History of drug use. (no). --19:41 Montana Najera R.N. PROBLEMS: Constipation. Back Pain. UTI - Urinary Tract Infection. Intrauterine . . Bronchitis. --19:38 Montana Najera R.N. ADDITIONAL SURGERIES: no known surgeries. Interventions ID band on patient. To treatment room. --19:41 Montana Najera R.N. PHYSICAL ASSESSMENT late entry -21:44 PM. Ambulatory to room. GENERAL / NEURO / PSYCH: Alert. Oriented X 4. Appears in no acute distress. HEENT: Mucous membranes are pink. RESPIRATORY: Respirations not labored. CVS: Normal heart rate and rhythm. Capillary refill less than 2 seconds. GI / : Emesis noted. Abdomen soft and nontender. Bowel sounds within normal limits. Moderate vaginal bleeding present, consisting of dark blood with clots. EXTREMITIES: No lower extremity edema. SKIN: Skin is warm and dry. --21:46 Montana Najera R.N. NURSING PROGRESS NOTES 20:20 11/23/2016 Site #1 started via IV in the right forearm with an 18g angiocath; two attempts. Blood drawn: rainbow set. Labeled in the presence of the patient and sent to the lab. Saline lock flushed with 10 mL saline. --20:20 Montana Najera R.N. 20:20 11/23/2016 Morphine IVP 2 mg given over 2 minute(s) via site #1. Allergies verified, confirmed 5 rights and sedative warning given to the patient. IV patency established. IV site checked: no pain, redness, or swelling. IV flushed thoroughly pre- and post-medication administration. IVP given by RN. --20:20 Montana Najera R.N. 20:20 11/23/2016 Started IV Fluids IV NS (Saline); bolus of 1000 mL wide open via site #1. Allergies verified and confirmed 5 rights. IV patency established. IV site checked: no pain, redness, or swelling. IV flushed thoroughly pre- and post-medication administration. --20:20 Montana Najera R.N. 20:27 11/23/2016 Started IV Fluids IV NS (Saline); bolus of 1000 mL wide open via site #1. Allergies verified and confirmed 5 rights. IV patency established. IV site checked: no pain, redness, or swelling. IV flushed thoroughly pre- and post-medication administration. --20:27 Montana Najera R.N. 20:35 11/23/2016 Morphine IVP 2 mg given over 2 minute(s) via site #1. Allergies verified, confirmed 5 rights and sedative warning given to the patient. IV patency established. IV site checked: no pain, redness, or swelling. IV flushed thoroughly pre- and post-medication administration. IVP given by RN. --20:35 Montana Najera R.N. Reassurance given. Side rails up x 1. Bed placed in lowest position. Brakes of bed on. ( Ultrasound at the bedside.). --20:40 Montana Najera R.N. 21:07 11/23/2016 Morphine IVP 2 mg given over 2 minute(s) via site #1. Allergies verified, confirmed 5 rights and sedative warning given to the patient. IV patency established. IV site checked: no pain, redness, or swelling. IV flushed thoroughly pre- and post-medication administration. IVP given by RN (per verbal orders). --21:07 Montana Najera R.N. 21:14 11/23/2016 PHENERGAN-CODEINE (Promethazine-Codeine) PO 10 mL given. Allergies verified and confirmed 5 rights. --21:14 Montana Najera R.N. Call light placed in reach. Side rails up x 2. Bed placed in lowest position. Brakes of bed on. --21:15 Montana Najera R.N. 21:14 11/23/16. BP: 102/58. HR: 80. RR: 16. O2 saturation: 100%. --21:15 Montana Najera R.N. DISPOSITION / DISCHARGE Condition at departure: improved. The goals identified in the patient's plan of care were met. No learning barriers present. Reviewed medication(s) side effects, precautions, dosing and course information. Prescription(s) given to the patient. Patient verbalized understanding. Written instructions provided in [employer]. The patient was discharged home and accompanied by parent. She left the Emergency Department ambulatory and via private vehicle. Parent driving. FALL RISK ASSESSMENT: Fall risk assessment completed. No fall risk identified. --21:40 Montana Najera R.N. Departure time: 2140 PM. --21:40 Montana Najera R.N. 21:40 11/23/2016 Site #1 removed upon discharge. Pressure dressing applied. --21:40 Montana Najera R.N. 21:41 11/23/2016 IV Fluids IV NS Discontinued: bag #1 completed. Total amount infused: 1000 mL. IV patency established. IV site checked: no pain, redness, or swelling. IV flushed thoroughly. --21:41 Montana Najera R.N. Locked/Released at 11/23/2016 21:47 by Montana Najera R.N.
--- NOTE | 2016-11-23 21:46 | DIAGNOSTIC IMAGING REPORT ---
PROCEDURE: US OB 1ST TRIMESTER W/TRANSVAG INDICATION: Vaginal bleeding and cramping, initial encounter TECHNIQUE: Quintero scale, color, and spectral Doppler transabdominal and endovaginal sonographic images of the first trimester gravid uterus were obtained. COMPARISON: OB ultrasound 11/05/2016 FINDINGS: TRANSABDOMINAL SCANS: Anteverted uterus. Normal kidneys. TRANSVAGINAL SCANS: Heterogeneous endometrium and previously noted intrauterine gestational sac is no longer visualized. Endometrium is avascular. 1.9 cm right ovarian corpus luteum cyst . No free fluid. IMPRESSION: 1. Findings consistent with spontaneous .
--- NOTE | 2016-11-29 13:17 | ED DISCHARGE INSTRUCTIONS ---
Patient: HARLEY ACOSTA General Instructions [facility] VisitID: [id number] [place] [address] 31y, F Registration Date/Time: 11/23/2016 11/23/2016 21:14 BP: 102/58. HR: 80. RR: 16. O2 saturation: 100%. Blood pressure normal. Oxygen saturation normal. Threatened . (acute). INSTRUCTIONS Warnings: GENERAL WARNINGS: Return or contact your physician immediately if your condition worsens or changes unexpectedly, if not improving as expected, or if other problems arise. Specifically return if pain, vomiting, bleeding, breathing difficulty or fever. Your Current Medications: CONTINUE TAKING THE FOLLOWING MEDICATIONS: Vitamins Oral. Prescription Medications: Percocet 5 mg/325 mg: take 1 tablet orally every 6 hours as needed for pain. Dispense twenty (20). No refill. Substitution is permissible. Follow-up: Return to the emergency department as needed. 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 Reason for referral: recheck today's concerns in 2 - 3 days. Summary of care provided to patient via paper. Follow up with your doctor in three days. Reason for referral: recheck today's concerns. Summary of care provided to patient via paper. Screening today revealed the patient's blood pressure to be in the normal range. The patient should follow up with a primary care provider for blood pressure management. Understanding of the discharge instructions verbalized by patient. ADDITIONAL INFORMATION Abdominal Pain And Early [R/O Sab, Ectopic: Serial Q-Hcg's] Based on your visit today, we know you are . But, the exact cause of your abdominal (stomach) pain is not certain. Some pain or bleeding may occur in a NORMAL . But pain may also be a sign of a MISCARRIAGE or an ECTOPIC (baby growing in the Fallopian tube instead of the uterus). An ectopic is a very serious condition. It can lead to severe internal bleeding and even . Therefore, further tests are needed to find out the cause of your symptoms. These may include: ULTRASOUND - A pelvic ultrasound can detect a normal as early as 4-5 weeks of age. But, if the ultrasound test does not show the baby inside the uterus, it means that i) you have a normal less than 4 weeks old, ii) you are having or recently had a miscarriage or iii) you have an ectopic . QUANTITATIVE HCG - a test that measures the amount of hormone in your blood. Comparing today's test result to a repeat test in 48 hours shows whether or not you have a normal . LAPAROSCOPY - a surgical procedure where a tube with a light is placed inside the abdomen to look directly at the pelvic organs. This is used when it is not safe to wait 48 hours for blood test results. Important If you do have an ectopic , there is a small chance that the growing fetus can tear the Fallopian tube and cause severe internal bleeding. If this happens, there may be SUDDEN SEVERE LOWER ABDOMINAL PAIN, VAGINAL BLEEDING, WEAKNESS, DIZZINESS and sometimes FAINTING. If any of these symptoms occur: CALL AN AMBULANCE (call 911) or return immediately to the hospital. DO NOT DRIVE YOURSELF. DO NOT GO TO YOUR DOCTOR'S OFFICE OR TO A CLINIC. Home Care: Rest until your next exam. Do not perform any strenuous activity. Eat a light diet with foods that are easy to digest. Avoid sexual intercourse until all symptoms have gone away and you are cleared by your doctor. Follow Up with your doctor or this facility as advised for repeat blood testing. [NOTE: If you had an X-ray or ultrasound test, it will be reviewed by a specialist. You will be notified of any new findings that may affect your care.] Get Prompt Medical Attention if any of the following occur: Sudden or gradual worsening abdominal pain Fainting, dizziness or weakness when standing Heavy vaginal bleeding (soaking one pad an hour for three hours) Vaginal bleeding for more than 5 days Repeated vomiting or diarrhea Pain that moves to the right lower abdomen (stomach) Blood in vomit or bowel movements (dark red or black color) Fever of 100.4F (38C) or higher, or as directed by your healthcare provider Oxycodone Hydrochloride, Acetaminophen Oral tablet What is this medicine? ACETAMINOPHEN; OXYCODONE (a set a DINORAH hugo fen; ox i KOE done) is a pain reliever. It is used to treat mild to moderate pain. How should I use this medicine? Take this medicine by mouth with a full glass of water. Follow the directions on the prescription label. Take your medicine at regular intervals. Do not take your medicine more often than directed. Talk to your assistant professor of forestry regarding the use of this medicine in children. Special care may be needed. Patients over 65 years old may have a stronger reaction and need a smaller dose. What side effects may I notice from receiving this medicine? Side effects that you should report to your doctor or health career services director as soon as possible: allergic reactions like skin rash, itching or hives, swelling of the face, lips, or tongue breathing difficulties, wheezing confusion light headedness or fainting spells severe stomach pain yellowing of the skin or the whites of the eyes Side effects that usually do not require medical attention (report to your doctor or health career services director if they continue or are bothersome): dizziness drowsiness nausea vomiting What may interact with this medicine? alcohol antihistamines barbiturates like amobarbital, butalbital, butabarbital, methohexital, pentobarbital, phenobarbital, thiopental, and secobarbital benztropine drugs for bladder problems like solifenacin, trospium, oxybutynin, tolterodine, hyoscyamine, and methscopolamine drugs for breathing problems like ipratropium and tiotropium drugs for certain stomach or intestine problems like propantheline, homatropine methylbromide, glycopyrrolate, atropine, belladonna, and dicyclomine general anesthetics like etomidate, ketamine, nitrous oxide, propofol, desflurane, enflurane, halothane, isoflurane, and sevoflurane medicines for depression, anxiety, or psychotic disturbances medicines for sleep muscle relaxants naltrexone narcotic medicines (opiates) for pain phenothiazines like perphenazine, thioridazine, chlorpromazine, mesoridazine, fluphenazine, prochlorperazine, promazine, and trifluoperazine scopolamine tramadol trihexyphenidyl What if I miss a dose? If you miss a dose, take it as soon as you can. If it is almost time for your next dose, take only that dose. Do not take double or extra doses. Where should I keep my medicine? Keep out of the reach of children. This medicine can be abused. Keep your medicine in a safe place to protect it from theft. Do not share this medicine with anyone. Selling or giving away this medicine is dangerous and against the law. Store at room temperature between 20 and 25 degrees C (68 and 77 degrees F). Keep container tightly closed. Protect from light. This medicine may cause accidental overdose and if it is taken by other adults, children, or pets. Flush any unused medicine down the toilet to reduce the chance of harm. Do not use the medicine after the expiration date. What should I tell my health care provider before I take this medicine? They need to know if you have any of these conditions: brain tumor Crohn's disease, inflammatory bowel disease, or ulcerative colitis drink more than 3 alcohol containing drinks per day drug abuse or addiction head injury heart or circulation problems kidney disease or problems going to the bathroom liver disease lung disease, asthma, or breathing problems an unusual or allergic reaction to acetaminophen, oxycodone, other opioid analgesics, other medicines, foods, dyes, or preservatives or trying to get breast-feeding What should I watch for while using this medicine? Tell your doctor or health career services director if your pain does not go away, if it gets worse, or if you have new or a different type of pain. You may develop tolerance to the medicine. Tolerance means that you will need a higher dose of the medication for pain relief. Tolerance is normal and is expected if you take this medicine for a long time. Do not suddenly stop taking your medicine because you may develop a severe reaction. Your body becomes used to the medicine. This does NOT mean you are addicted. Addiction is a behavior related to getting and using a drug for a non-medical reason. If you have pain, you have a medical reason to take pain medicine. Your doctor will tell you how much medicine to take. If your doctor wants you to stop the medicine, the dose will be slowly lowered over time to avoid any side effects. You may get drowsy or dizzy. Do not drive, use machinery, or do anything that needs mental alertness until you know how this medicine affects you. Do not stand or sit up quickly, especially if you are an older patient. This reduces the risk of dizzy or fainting spells. Alcohol may interfere with the effect of this medicine. Avoid alcoholic drinks. There are different types of narcotic medicines (opiates) for pain. If you take more than one type at the same time, you may have more side effects. Give your health care provider a list of all medicines you use. Your doctor will tell you how much medicine to take. Do not take more medicine than directed. Call emergency for help if you have problems breathing. The medicine will cause constipation. Try to have a bowel movement at least every 2 to 3 days. If you do not have a bowel movement for 3 days, call your doctor or health career services director. Do not take Tylenol (acetaminophen) or medicines that have acetaminophen with this medicine. Too much acetaminophen can be very dangerous. Many nonprescription medicines contain acetaminophen. Always read the labels carefully to avoid taking more acetaminophen. You have been given the following additional information: Abdominal Pain, Early Oxycodone Hydrochloride, Acetaminophen Oral tablet (Electronically signed by Jason Sheehan Dr. 11/29/2016 10:20)
--- NOTE | 2016-11-29 13:17 | ED MED RECONCILIATION SUMMARY ---
Patient: HARLEY ACOSTA Medication Reconciliation Report [facility]erg[facility] VisitID: [id number] [address] [place] [address] 31y, F Registration Date/Time: 11/23/2016 Weight: 47.6 kg Height/Length: 63 in. BMI: 18.6 ALLERGIES: Reglan The patient's Home Medications are listed below: CONTINUE TAKING THE FOLLOWING MEDICATIONS: Vitamins Oral The source(s) of the original Home Medication information: Not obtained. The following Medications were given to the patient in the Emergency Department: Morphine [IVP] IVP 2 mg, administered: 11/23/2016 8:20:00 PM IV NS IV Fluids bolus 1000 mL wide open, administered: 11/23/2016 8:20:00 PM IV NS IV Fluids bolus 1000 mL wide open, administered: 11/23/2016 8:27:00 PM Morphine [IVP] IVP 2 mg, administered: 11/23/2016 8:35:00 PM Morphine [IVP] IVP 2 mg, administered: 11/23/2016 9:07:00 PM PHENERGAN-CODEINE [PO] PO 10 mL, administered: 11/23/2016 9:14:00 PM The following Medications were prescribed to the patient: Percocet 5 mg/325 mg: take 1 tablet orally every 6 hours as needed for pain. Dispense twenty (20). No refill. Substitution is permissible. -- Jason Sheehan Dr.
--- NOTE | 2016-11-29 13:17 | ED MAR SUMMARY ---
..... Medication Administration Record [facility] [address] [place] [address] Patient: HARLEY ACOSTA Visit ID: [id number] 31y, F Weight: 47.6 kg Height/Length: 63 in BMI: 18.6 ALLERGIES: Reglan Given 20:20 11/23/2016 Montana Najera R.N. Medication Administered: MORPHINE [IVP], Dose: 2 mg IVP over 2 minute(s), Site: #1 right forearm. Medication Ordered: Morphine IV 2 mg (once now. may repeat once in 15 minutes for no change in pain. ). Start 20:20 11/23/2016 Montana Najera R.N., Stop 21:41 11/23/2016 Montana Najera R.N. Medication Administered: IV NS (SALINE), Dose: IV Fluids, Bolus: 1000 mL wide open, Site: #1 right forearm. Medication Ordered: IV NS : initial bolus 1000 mL (1000 mL/hr), then none - for X1 (NOW). Start 20:27 11/23/2016 Montana Najera R.N. Medication Administered: IV NS (SALINE), Dose: IV Fluids, Bolus: 1000 mL wide open, Site: #1 right forearm. Medication Ordered: IV NS : initial bolus 1000 mL (1000 mL/hr), then none - for X1 (NOW). Given 20:35 11/23/2016 Montana Najera R.N. Medication Administered: MORPHINE [IVP], Dose: 2 mg IVP over 2 minute(s), Site: #1 right forearm. Medication Ordered: Morphine IV 2 mg (once now. may repeat once in 15 minutes for no change in pain. ). Given 21:07 11/23/2016 Montana Najera R.N. Medication Administered: MORPHINE [IVP], Dose: 2 mg IVP over 2 minute(s), Site: #1 right forearm. Medication Ordered: Morphine IV 2 mg (once now. may repeat once in 15 minutes for no change in pain. ). Given 21:11/23/2016 Montana Najera R.N. Medication Administered: PHENERGAN-CODEINE [PO] (PROMETHAZINE-CODEINE), Dose: 10 mL PO. Medication Ordered: Phenergan-Codeine PO 10 mL (HIGH ALERT MEDICATION, NOW).
--- NOTE | 2016-11-29 13:17 | ED MED RECONCILIATION SUMMARY ---
Patient: HARLEY ACOSTA Medication Reconciliation Report [facility] VisitID: [id number] [address] [place] [address] 31y, F Registration Date/Time: 11/23/2016 Weight: 47.6 kg Height/Length: 63 in. BMI: 18.6 ALLERGIES: Reglan The patient's Home Medications are listed below: CONTINUE TAKING THE FOLLOWING MEDICATIONS: Vitamins Oral The source(s) of the original Home Medication information: Not obtained. The following Medications were given to the patient in the Emergency Department: Morphine [IVP] IVP 2 mg, administered: 11/23/2016 8:20:00 PM IV NS IV Fluids bolus 1000 mL wide open, administered: 11/23/2016 8:20:00 PM IV NS IV Fluids bolus 1000 mL wide open, administered: 11/23/2016 8:27:00 PM Morphine [IVP] IVP 2 mg, administered: 11/23/2016 8:35:00 PM Morphine [IVP] IVP 2 mg, administered: 11/23/2016 9:07:00 PM PHENERGAN-CODEINE [PO] PO 10 mL, administered: 11/23/2016 9:14:00 PM The following Medications were prescribed to the patient: Percocet 5 mg/325 mg: take 1 tablet orally every 6 hours as needed for pain. Dispense twenty (20). No refill. Substitution is permissible. -- Jason Sheehan Dr.
--- NOTE | 2016-11-29 13:17 | ED MAR SUMMARY ---
..... Medication Administration Record [facility] [address] [place] [place] [address] Patient: HARLEY ACOSTA Visit ID: [id number] 31y, F Weight: 47.6 kg Height/Length: 63 in BMI: 18.6 ALLERGIES: Reglan Given 20:20 11/23/2016 Montana Najera R.N. Medication Administered: MORPHINE [IVP], Dose: 2 mg IVP over 2 minute(s), Site: #1 right forearm. Medication Ordered: Morphine IV 2 mg (once now. may repeat once in 15 minutes for no change in pain. ). Start 20:20 11/23/2016 Montana Najera R.N., Stop 21:41 11/23/2016 Montana Najera R.N. Medication Administered: IV NS (SALINE), Dose: IV Fluids, Bolus: 1000 mL wide open, Site: #1 right forearm. Medication Ordered: IV NS : initial bolus 1000 mL (1000 mL/hr), then none - for X1 (NOW). Start 20:27 11/23/2016 Montana Najera R.N. Medication Administered: IV NS (SALINE), Dose: IV Fluids, Bolus: 1000 mL wide open, Site: #1 right forearm. Medication Ordered: IV NS : initial bolus 1000 mL (1000 mL/hr), then none - for X1 (NOW). Given 20:35 11/23/2016 Montana Najera R.N. Medication Administered: MORPHINE [IVP], Dose: 2 mg IVP over 2 minute(s), Site: #1 right forearm. Medication Ordered: Morphine IV 2 mg (once now. may repeat once in 15 minutes for no change in pain. ). Given 21:07 11/23/2016 Montana Najera R.N. Medication Administered: MORPHINE [IVP], Dose: 2 mg IVP over 2 minute(s), Site: #1 right forearm. Medication Ordered: Morphine IV 2 mg (once now. may repeat once in 15 minutes for no change in pain. ). Given 21:11/23/2016 Montana Najera R.N. Medication Administered: PHENERGAN-CODEINE [PO] (PROMETHAZINE-CODEINE), Dose: 10 mL PO. Medication Ordered: Phenergan-Codeine PO 10 mL (HIGH ALERT MEDICATION, NOW).
== END 2016-11-23 21:49 | disposition home or self-care (01) ==
LOC: ED SRH 19:25
DX: O20.0 Threatened abortion (principal); Z3A.09 9 weeks gestation of pregnancy
CPT/HCPCS: 90001; 90004; 90100; 90155; 90195; 90197; 91227; 91228; 95059

== ENCOUNTER 2016-12-27 20:29 | Emergency (ER) | payer OTHER ==
--- NOTE | 2016-12-28 01:31 | ED ORDER SUMMARY ---
..... Patient: HARLEY ACOSTA OrderSheet [facility] VisitID: [id number] [place] [address] 31y, F Registration Date/Time: 12/27/2016 ORDER SHEET Weight: 45.3 kg (stated) Allergies: Vicoden, Reglan, Aspirin GENERAL ORDERS: CBC w Diff Urgent (21:54 12/27/2016 Amanuel ELY) (Ack 21:59 ALawrence ER Tech1) (22:22 LMuller) Type & Rh Urgent (21:54 12/27/2016 Amanuel ELY) (Ack 21:59 ALawrence ER Tech1) (22:22 LMuller) Serum Quantitative Urgent (21:54 12/27/2016 Amanuel ELY) (Ack 21:59 ALawrence ER Tech1) (22:22 LMuller) CBC w Diff Urgent (21:59 12/27/2016 Amanuel ELY) (Cancelled: Duplicate Order22:14 ALawrence ER Tech1) UA-Culture if indicated Urgent (21:59 12/27/2016 Amanuel ELY) (Ack 22:16 ALawrence ER Tech1) (23:03 DDavis R.N.) Lipase Urgent (21:59 12/27/2016 Amanuel ELY) (Ack 22:16 ALawrence ER Tech1) (22:22 LMuller) US Pelvic Complete w Transvag (RIGHT ADNEXAL TENDERESS HCG LESS THAN 100) Urgent (23:04 12/27/2016 Amanuel ELY) (Ack 23:14 ALawrence ER Tech1) (0:47 RCollier R.N.) MEDICATION ORDERS: IV FLUIDS: IV NS : initial bolus none -, then 500 mL/hr for 2h (NOW); Urgent (21:58 12/27/2016 Amanuel ELY) (Ack 22:58 RCollier R.N.) (23:02 DDavis R.N.) Dilaudid IV 0.5 mg (HIGH ALERT MEDICATION, NOW) (21:59 12/27/2016 Amanuel ELY) (Ack 22:58 RCollier R.N.) (23:03 DDavis R.N.) Dilaudid IV 1 mg (NOW) (00:30 12/28/2016 Amanuel ELY) (Ack 0:40 Floridalma Baig) (0:47 Floridalma Baig) ORDER SHEET NOTES: [Electronically signed by Petty Cortés R.N. (02:04 12/28/2016)] [Electronically signed by Sonu Ruiz MD (20:22 12/28/2016)] [Electronically locked/signed by Petty Cortés R.N. (02:04 12/28/2016)]
--- NOTE | 2016-12-28 01:31 | ED CLINICAL REPORT ---
Clinical Report - Physicians/Mid Levels [facility] [address] [place] [address] 12/27/2016 20:28 Patient: HARLEY BENJAMIN Time Seen: 21:53. Arrived- By private vehicle. Historian- patient. HISTORY OF PRESENT ILLNESS Chief Complaint: ABDOMINAL PAIN and . At its maximum, severity described as 9 / 10. When seen in the E.D., severity described as 8 / 10. Modifying factors- worsened by movement. This started today 12 PM and is still present. It was abrupt in onset. It is described as "pain" and it is described as located in the right side of the back and left side of the back, in the upper abdomen and in the periumbilical area. The patient has had nausea. No vomiting or diarrhea. (LMP 2/14 2 pads since noon. No care or US per the patient.). Similar symptoms previously: ( Review of [facility] data reveals several November visits at [facility] for and abdominal pain. She received over 50 Oxycodone tablets from various providers in November.). Recent medical care: The patient was seen recently at another facility in the emergency department. REVIEW OF SYSTEMS 6. Para 1. No constipation, black stools, difficulty with urination or pain with urination. PAST HISTORY OB None PCP: NOne One ectopic, ovary cyst Ectopic - took medication, Ops: None, Hosp: Concusussion, Child . SOCIAL HISTORY Residence: has a [facility]. ADDITIONAL NOTES The nursing notes have been reviewed. PHYSICAL EXAM Vital Signs: 12/28/2016 01:53 BP: 106/61. HR: 64. RR: 15. O2 saturation: 98%. Silva-Siddiqi pain scale: 11/19. 12/28/2016 00:48 BP: 106/65. HR: 85. RR: 16. O2 saturation: 100%. Silva-Siddiqi pain scale: 01/17. 12/27/2016 22:52 BP: 118/68. HR: 84. RR: 16. O2 saturation: 99%. Pain level now: 03/19. 12/27/2016 21:18 BP: 102/60. HR: 75. RR: 14. O2 saturation: 98%. Temp: 98.2 F. Appearance: Alert. Patient in mild distress. Eyes: Eyes normal inspection. ENT: Pharynx normal. CVS: Heart sounds normal. Respiratory: No respiratory distress. Breath sounds normal. Abdomen: Moderate tenderness in the epigastric area, periumbilical area and suprapubic area. No organomegaly. No mass. No rebound tenderness or guarding. : Moderate right adnexal tenderness; uterine tenderness; mild cervical motion tenderness. No right adnexal fullness. (H Asim DESIGN COORDINATOR was the in room sheet rock installation helper.). Skin: Normal skin color. Extremities: Extremities exhibit normal ROM. LABS, X-RAYS, AND EKG Abdominal Sonogram: (NSVAGINAL SCANS: The uterus is anteverted in position and has a homogeneous myometrial echotexture. Normal vascularity. The endometrium is approximately 10.6 mm in thickness. Small amount of heterogeneously hypoechoic avascular material in the lower uterine segment endometrial canal. No discrete fluid collection. No gestational sac. The right ovary measures 2.1 x 2.1 x 1.8 cm and has a normal follicular echotexture. There is normal arterial and venous ovarian flow present. The left ovary measures 3.1 x 2.7 x 2.7 cm and also has a normal follicular echotexture and normal vascularity. No suspicious adnexal masses or free pelvic fluid. IMPRESSION: 1. Small amount of complex hypoechoic material within the lower uterine segment endometrium likely represents blood products or sloughing products of conception. 2. Normal ovaries. 3. No viable intrauterine . Dictated by: TRINO BROWN MD D: BISI;12/28/16 0757 <Electronically signed by TRINO BROWN MD in OV> 12/28/16 0758). The study was interpreted by the radiologist. Laboratory Tests: UA-Culture if indicated: (NATALIE: 12/28/2016 00:01) ( MsgRcvd 12/28/2016 00:19) Final results Test Result Flag Units (Reference) URINE COLOR YELLOW URINE APPEARANCE CLEAR URINE GLUCOSE NEGATIVE (NEGATIVE) URINE BILIRUBIN NEGATIVE (NEGATIVE) URINE KETONE NEGATIVE (NEGATIVE) URINE SPECIFIC GRAVITY >= 1.030 (1.010-1.030) URINE PH 6.0 (5.0-8.0) URINE PROTEIN NEGATIVE (NEGATIVE) URINE UROBILINOGEN 0.2 EU/dL (0.2-1.0) URINE NITRITE NEGATIVE (NEGATIVE) URINE BLOOD 2+ (NEGATIVE) URINE LEUK ESTERASE NEGATIVE (NEGATIVE) URINE RBC 1-3 rbc/hpf (0-1) URINE WBC 0-1 wbc/hpf (0-1) URINE EPITHELIAL CELLS 0-1 EPI/hpf (0-5) URINE BACTERIA NONE SEEN (NONE SEEN) URINE COMMENT CULT NOT INDICATED URINE CULTURES ARE SET-UP BASED ON THE FOLLOWING CRITERIA:POSITIVE NITRITEPOSITIVE LEUKOCYTE ESTERASEGREATER THAN 10 WHITE BLOOD CELLSMODERATE (2+) OR GREATER BACTERIA CBC w Diff: (NATALIE: 12/27/2016 22:00) ( [facility] 12/[facility] 22[facility]12) Final results Test Result Flag Units (Reference) WHITE BLOOD COUNT 13.2 H K/uL (4.5-11.5) RED BLOOD COUNT 4.31 M/uL (4.00-5.20) HEMOGLOBIN 13.9 gm/dL (12.0-16.0) HEMATOCRIT 41.5 % (36.0-46.0) MEAN CELL VOLUME 96 fL (80-100) MEAN CORPUSCULAR HGB 32 pg (26-34) MEAN CORPUSCULAR HGB CONC 33 g/dL (31-37) RED CELL DISTRIBUTION WIDTH 13.5 % (11.6-14.8) PLATELET COUNT 233 K/uL (150-400) NEUTROPHIL % 60.1 % (50-75) LYMPH % 28.8 % (25-40) MONO % 8.3 % (3-14) EOSINOPHIL % 2.2 % (0-4) BASOPHIL % 0.6 % (0-2) Lipase: (NATALIE: 12/27/2016 22:00) ( Mscvd 12/27/2016 23:32) Final results Test Result Flag Units (Reference) LIPASE 130 U/L (73-393) Serum Quantitative: (NATALIE: 12/27/2016 22:00) ( MsgRcvd 12/27/2016 22:43) Final results Test Result Flag Units (Reference) BETA HCG, QUANTITATIVE 31 mIU/mL REFERENCE RANGE:Adult Males: <2 mIU/mLNon- Females: <6 mIU/mL Females:Approximate Approximate hCGGestational Age Range (mIU/mL) 0-1 week 0-501-2 weeks 40-3002-3 weeks 100-46598-1 weeks 500-71821-2 months 5,000-200,0002-3 months 10,000-100,0002nd trimester 3,000-50,0003rd trimester 1,000-50,000 Type & Rh: (NATALIE: 12/27/2016 22:00) ( MsgRcvd 12/27/2016 22:16) Final results Test Result Flag Units (Reference) PATIENT BLOOD TYPE A Positive . PROGRESS AND PROCEDURES Course of Care: 21:59 12/27/16. Moderate periumbilical tenderness. Stable VS. No care 23:09 12/27/16. Pelvic - mod R adnexal tenderness. 01:27 12/28/16. [phone] Best phone number 08:11 12/28/16. Discussed the case and need for follow up with Dr Rubio. This could be early ectopic , early , early , or early appendicitis. This is discussed with Ms Benjamin and her fiance. Pain management is problematic. Additional oxycodone is not is the patient's best interests. Disposition: Discharged. Condition: stable. CLINICAL IMPRESSION Ectopic . ABDOMINAL PAIN AND . INSTRUCTIONS (YOU COULD HAVE A VERY EARLY TUBAL - REPEAT QUANTITATIVE HCG AND RE EXAM THIS COULD ALSO BE AN EARLY MISCARRIAGE THIS COULD ALSO BE EARLY APPENDICITIS. - SO RECECK IN ED IN 24 HOURS IF NOT BETTER. IMMEDIATE RECHECK IF LOTS WORSE YOU HAVE HAD OVER 50 OXYCODONE IN NOVEMBER. I DO NOT THINK MORE WOULD BE IN YOUR BEST INTEREST.). Understanding of the discharge instructions verbalized by patient and family. Follow-up with: Deion Rubio MD, Obstetrics/Gynecology, , [facility], [address] [place] [address], [place], [facility] Follow up. Reason for referral: RE EXAM AFER 48 HOUR BLOOD DRAW. (Electronically signed by Sonu Ruiz MD 12/28/2016 20:22)
--- NOTE | 2016-12-28 01:31 | ED NURSING NOTES ---
Clinical Report - Nurses [facility] [address] [place] [address] 12/27/2016 20:28 Patient: HARLEY ACOSTA TRIAGE Triage time 21:19. Chief Complaint: ABDOMINAL PAIN and CRAMPS and LOW BACK PAIN (vaginal bleeding). --:28 Alex Landeros R.N. 21:18 12/27/16. BP: 102/60. HR: 75. RR: 14. O2 saturation: 98%. Temp: 98.2 F. --21: Alex Landeros R.N. Weight: 45.3 kg stated. Height/Length: 63 inches Per Patient. BMI: 17.7. --22:50 Petty Cortés R.N. Medications None. --22:49 Petty Cortés R.N. The following entry was struck by Petty Cortés R.N., 22:49 (12/27/16) Reason - other. <<STRICKEN ENTRY-- [facility]. --21:23 Alex Landeros R.N. --END STRIKE>>. Allergies Aspirin. --01:45 Petty Cortés R.N. Vicoden. --22:49 Petty Cortés R.N. Reglan. --22:49 Petty Cortés R.N. History Historian: (patient). Arrived (POV) and accompanied by (Roberto). This started today. She has had mild vomiting. The vomiting has occurred several times and has been blood-tinged. PAST MEDICAL HX: The patient has had care (None). --21:28 Alex Landeros R.N. PAST MEDICAL HX: Immunizations: up-to-date. Last normal menstrual period- Nov 23, 2016. Currently . In 1st trimester. confirmed with home test. Has had no care. SOCIAL HX: Never smoker. No alcohol use or drug use. NUTRITIONAL RISK ASSESSMENT: The nutritional risk assessment revealed no deficiencies. FUNCTIONAL ASSESSMENT: Functional assessment: no impairments noted. --22:50 Petty Cortés R.N. PROBLEMS: UTI - Urinary Tract Infection. Bronchitis. --22:49 Petty Cortés R.N. ADDITIONAL SURGERIES: no known surgeries. Interventions ID band on patient. --21:28 Alex Landeros R.N. PHYSICAL ASSESSMENT Ambulatory to room. GENERAL / NEURO / PSYCH: Alert. Oriented X 4. Appears in no acute distress. HEENT: Mucous membranes are pink. RESPIRATORY: Respirations not labored. CVS: Capillary refill less than 2 seconds. GI / : Vaginal bleeding present (began today). SKIN: Skin is warm and dry. --22:51 Petty Cortés R.N. NURSING PROGRESS NOTES Head of bed elevated. Two patient identifiers checked. Call light placed in reach. Side rails up x 1. Bed placed in lowest position. Brakes of bed on. --22:51 Petty Cortés R.N. 22:52 12/27/16. BP: 118/68. HR: 84. RR: 16. O2 saturation: 99% on room air. Pain level now: 03/19. --22:53 Petty Cortés R.N. Patient gowned. --22:53 Petty Cortés R.N. Patient ID band checked for patient name and birthdate: patient confirmed. Instructions provided to collect clean catch urine and patient verbalized understanding. Clean catch urine collected with return of dianna-colored clear urine; sample sent to lab. Specimen labeled in the presence of the patient. --22:58 Petty Cortés R.N. 22:57 12/27/2016 Site #1 started via IV in the left antecubital space with an 20g angiocath; one attempt. Saline lock flushed with saline. --23:02 Chris Willis R.N. 23:01 12/27/2016 Dilaudid (HYDROmorphone HCl PF) IVP 0.5 mg given over 2 minute(s) via site #1. Allergies verified, confirmed 5 rights and sedative warning given to the patient. IV patency established. IV site checked: no pain, redness, or swelling. IV flushed thoroughly pre- and post-medication administration. --23:03 Chris Willis R.N. 23:02 12/27/2016 Started bag #1 500 mL IV Fluids IV NS (Saline); bolus of 500 mL wide open via site #1 via IV pump. Allergies verified and confirmed 5 rights. IV patency established. IV site checked: no pain, redness, or swelling. IV flushed thoroughly pre- and post-medication administration. --23:02 Chris Willis R.N. GI / : The patient reports abdominal pain. ( US tech at bedside). --00:20 Petty Cortés R.N. 00:44 12/28/2016 Dilaudid (HYDROmorphone HCl PF) IVP 1 mg given over 90 second(s) via site #1. Allergies verified, confirmed 5 rights and sedative warning given to the patient. IV patency established. IV site checked: no pain, redness, or swelling. IV flushed thoroughly pre- and post-medication administration. IVP given by RN. --00:47 Petty Cortés R.N. 00:48 12/28/16. BP: 106/65. HR: 85. RR: 16. O2 saturation: 100% on room air. Silva-Siddiqi pain scale: 4/10. --00:48 Petty Cortés R.N. 01:04- US exam complete. EDMD notified. --01:05 Petty Cortés R.N. 00:01 12/28/2016 IV Fluids IV NS Discontinued: bag #1 completed. Total amount infused: 1000 mL. IV patency established. IV site checked: no pain, redness, or swelling. IV flushed thoroughly. --01:47 Petty Cortés R.N. DISPOSITION / DISCHARGE 01:40 12/28/2016 Site #1 removed upon discharge (pt removed own IV). --01:47 Petty Cortés R.N. 01:53 12/28/16. BP: 106/61. HR: 64. RR: 15. O2 saturation: 98% on room air. Silva-Siddiqi pain scale: 2/10. --01:53 Petty Cortés R.N. Departure time: 02:00. Condition at departure: improved and stable. No learning barriers present. Discharge instructions provided and reviewed with the patient. Patient verbalized understanding. Written instructions provided in Mongolian. The patient was discharged home and accompanied by laundry sorter. She left the Emergency Department ambulatory and via private vehicle. Administrative Office Assistant driving. --02:03 Petty Cortés R.N. Locked/Released at 12/28/2016 2:04 by Petty Cotrés R.N.
--- NOTE | 2016-12-28 01:31 | ED CLINICAL REPORT ---
Clinical Report - Physicians/Mid Levels [facility] [address] [place] [address] 12/27/2016 20:28 Patient: HARLEY BENJAMIN Time Seen: 21:53. Arrived- By private vehicle. Historian- patient. HISTORY OF PRESENT ILLNESS Chief Complaint: ABDOMINAL PAIN and . At its maximum, severity described as 9 / 10. When seen in the E.D., severity described as 8 / 10. Modifying factors- worsened by movement. This started today 12 PM and is still present. It was abrupt in onset. It is described as "pain" and it is described as located in the right side of the back and left side of the back, in the upper abdomen and in the periumbilical area. The patient has had nausea. No vomiting or diarrhea. (LMP 2/14 2 pads since noon. No care or US per the patient.). Similar symptoms previously: ( Review of [facility] data reveals several November visits at [facility] for and abdominal pain. She received over 50 Oxycodone tablets from various providers in November.). Recent medical care: The patient was seen recently at another facility in the emergency department. REVIEW OF SYSTEMS 6. Para 1. No constipation, black stools, difficulty with urination or pain with urination. PAST HISTORY OB None PCP: NOne One ectopic, ovary cyst Ectopic - took medication, Ops: None, Hosp: Concusussion, Child . SOCIAL HISTORY Residence: has a [facility]. ADDITIONAL NOTES The nursing notes have been reviewed. PHYSICAL EXAM Vital Signs: 12/28/2016 01:53 BP: 106/61. HR: 64. RR: 15. O2 saturation: 98%. Silva-Siddiqi pain scale: 11/19. 12/28/2016 00:48 BP: 106/65. HR: 85. RR: 16. O2 saturation: 100%. Silva-Siddiqi pain scale: 01/17. 12/27/2016 22:52 BP: 118/68. HR: 84. RR: 16. O2 saturation: 99%. Pain level now: 03/19. 12/27/2016 21:18 BP: 102/60. HR: 75. RR: 14. O2 saturation: 98%. Temp: 98.2 F. Appearance: Alert. Patient in mild distress. Eyes: Eyes normal inspection. ENT: Pharynx normal. CVS: Heart sounds normal. Respiratory: No respiratory distress. Breath sounds normal. Abdomen: Moderate tenderness in the epigastric area, periumbilical area and suprapubic area. No organomegaly. No mass. No rebound tenderness or guarding. : Moderate right adnexal tenderness; uterine tenderness; mild cervical motion tenderness. No right adnexal fullness. (H Asim TENDERIZER TENDER was the in room plug assembler.). Skin: Normal skin color. Extremities: Extremities exhibit normal ROM. LABS, X-RAYS, AND EKG Abdominal Sonogram: (NSVAGINAL SCANS: The uterus is anteverted in position and has a homogeneous myometrial echotexture. Normal vascularity. The endometrium is approximately 10.6 mm in thickness. Small amount of heterogeneously hypoechoic avascular material in the lower uterine segment endometrial canal. No discrete fluid collection. No gestational sac. The right ovary measures 2.1 x 2.1 x 1.8 cm and has a normal follicular echotexture. There is normal arterial and venous ovarian flow present. The left ovary measures 3.1 x 2.7 x 2.7 cm and also has a normal follicular echotexture and normal vascularity. No suspicious adnexal masses or free pelvic fluid. IMPRESSION: 1. Small amount of complex hypoechoic material within the lower uterine segment endometrium likely represents blood products or sloughing products of conception. 2. Normal ovaries. 3. No viable intrauterine . Dictated by: TRINO BROWN MD D: BISI;12/28/16 0757 <Electronically signed by TRINO BROWN MD in OV> 12/28/16 0758). The study was interpreted by the radiologist. Laboratory Tests: UA-Culture if indicated: (NATALIE: 12/28/2016 00:01) ( MsgRcvd 12/28/2016 00:19) Final results Test Result Flag Units (Reference) URINE COLOR YELLOW URINE APPEARANCE CLEAR URINE GLUCOSE NEGATIVE (NEGATIVE) URINE BILIRUBIN NEGATIVE (NEGATIVE) URINE KETONE NEGATIVE (NEGATIVE) URINE SPECIFIC GRAVITY >= 1.030 (1.010-1.030) URINE PH 6.0 (5.0-8.0) URINE PROTEIN NEGATIVE (NEGATIVE) URINE UROBILINOGEN 0.2 EU/dL (0.2-1.0) URINE NITRITE NEGATIVE (NEGATIVE) URINE BLOOD 2+ (NEGATIVE) URINE LEUK ESTERASE NEGATIVE (NEGATIVE) URINE RBC 1-3 rbc/hpf (0-1) URINE WBC 0-1 wbc/hpf (0-1) URINE EPITHELIAL CELLS 0-1 EPI/hpf (0-5) URINE BACTERIA NONE SEEN (NONE SEEN) URINE COMMENT CULT NOT INDICATED URINE CULTURES ARE SET-UP BASED ON THE FOLLOWING CRITERIA:POSITIVE NITRITEPOSITIVE LEUKOCYTE ESTERASEGREATER THAN 10 WHITE BLOOD CELLSMODERATE (2+) OR GREATER BACTERIA CBC w Diff: (NATALIE: 12/27/2016 22:00) ( [facility] 12/27/2016 22:12) Final results Test Result Flag Units (Reference) WHITE BLOOD COUNT 13.2 H K/uL (4.5-11.5) RED BLOOD COUNT 4.31 M/uL (4.00-5.20) HEMOGLOBIN 13.9 gm/dL (12.0-16.0) HEMATOCRIT 41.5 % (36.0-46.0) MEAN CELL VOLUME 96 fL (80-100) MEAN CORPUSCULAR HGB 32 pg (26-34) MEAN CORPUSCULAR HGB CONC 33 g/dL (31-37) RED CELL DISTRIBUTION WIDTH 13.5 % (11.6-14.8) PLATELET COUNT 233 K/uL (150-400) NEUTROPHIL % 60.1 % (50-75) LYMPH % 28.8 % (25-40) MONO % 8.3 % (3-14) EOSINOPHIL % 2.2 % (0-4) BASOPHIL % 0.6 % (0-2) Lipase: (NATALIE: 12/27/2016 22:00) ( Mscvd 12/27/2016 23:32) Final results Test Result Flag Units (Reference) LIPASE 130 U/L (73-393) Serum Quantitative: (NATALIE: 12/27/2016 22:00) ( MsgRcvd 12/27/2016 22:43) Final results Test Result Flag Units (Reference) BETA HCG, QUANTITATIVE 31 mIU/mL REFERENCE RANGE:Adult Males: <2 mIU/mLNon- Females: <6 mIU/mL Females:Approximate Approximate hCGGestational Age Range (mIU/mL) 0-1 week 0-501-2 weeks 40-3002-3 weeks 100-27877-4 weeks 500-08183-9 months 5,000-200,0002-3 months 10,000-100,0002nd trimester 3,000-50,0003rd trimester 1,000-50,000 Type & Rh: (NATALIE: 12/27/2016 22:00) ( MsgRcvd 12/27/2016 22:16) Final results Test Result Flag Units (Reference) PATIENT BLOOD TYPE A Positive . PROGRESS AND PROCEDURES Course of Care: 21:59 12/27/16. Moderate periumbilical tenderness. Stable VS. No care 23:09 12/27/16. Pelvic - mod R adnexal tenderness. 01:27 12/28/16. [phone] Best phone number 08:11 12/28/16. Discussed the case and need for follow up with Dr Rubio. This could be early ectopic , early , early , or early appendicitis. This is discussed with Ms Benjamin and her fiance. Pain management is problematic. Additional oxycodone is not is the patient's best interests. Disposition: Discharged. Condition: stable. CLINICAL IMPRESSION Ectopic . ABDOMINAL PAIN AND . INSTRUCTIONS (YOU COULD HAVE A VERY EARLY TUBAL - REPEAT QUANTITATIVE HCG AND RE EXAM THIS COULD ALSO BE AN EARLY MISCARRIAGE THIS COULD ALSO BE EARLY APPENDICITIS. - SO RECECK IN ED IN 24 HOURS IF NOT BETTER. IMMEDIATE RECHECK IF LOTS WORSE YOU HAVE HAD OVER 50 OXYCODONE IN NOVEMBER. I DO NOT THINK MORE WOULD BE IN YOUR BEST INTEREST.). Understanding of the discharge instructions verbalized by patient and family. Follow-up with: Deion Rubio MD, Obstetrics/Gynecology, , [facility], [address] [place] [address], [place], [facility] Follow up. Reason for referral: RE EXAM AFER 48 HOUR BLOOD DRAW. (Electronically signed by Sonu Ruiz MD 12/28/2016 20:22)
--- NOTE | 2016-12-28 01:31 | ED ORDER SUMMARY ---
..... Patient: HARLEY ACOSTA OrderSheet [facility] VisitID: [id number] [place] [address] 31y, F Registration Date/Time: 12/27/2016 ORDER SHEET Weight: 45.3 kg (stated) Allergies: Vicoden, Reglan, Aspirin GENERAL ORDERS: CBC w Diff Urgent (21:54 12/27/2016 Amanuel ELY) (Ack 21:59 ALawrence ER Tech1) (22:22 LMuller) Type & Rh Urgent (21:54 12/27/2016 Amanuel ELY) (Ack 21:59 ALawrence ER Tech1) (22:22 LMuller) Serum Quantitative Urgent (21:54 12/27/2016 Amanuel ELY) (Ack 21:59 ALawrence ER Tech1) (22:22 LMuller) CBC w Diff Urgent (21:59 12/27/2016 Amanuel ELY) (Cancelled: Duplicate Order22:14 ALawrence ER Tech1) UA-Culture if indicated Urgent (21:59 12/27/2016 Amanuel ELY) (Ack 22:16 ALawrence ER Tech1) (23:03 DDavis R.N.) Lipase Urgent (21:59 12/27/2016 Amanuel ELY) (Ack 22:16 ALawrence ER Tech1) (22:22 LMuller) US Pelvic Complete w Transvag (RIGHT ADNEXAL TENDERESS HCG LESS THAN 100) Urgent (23:04 12/27/2016 Amanuel ELY) (Ack 23:14 ALawrence ER Tech1) (0:47 RCollier R.N.) MEDICATION ORDERS: IV FLUIDS: IV NS : initial bolus none -, then 500 mL/hr for 2h (NOW); Urgent (21:58 12/27/2016 Amanuel ELY) (Ack 22:58 RCollier R.N.) (23:02 DDavis R.N.) Dilaudid IV 0.5 mg (HIGH ALERT MEDICATION, NOW) (21:59 12/27/2016 Amanuel ELY) (Ack 22:58 RCollier R.N.) (23:03 DDavis R.N.) Dilaudid IV 1 mg (NOW) (00:30 12/28/2016 Amanuel ELY) (Ack 0:40 Floridalma Baig) (0:47 Floridalma Baig) ORDER SHEET NOTES: [Electronically signed by Petty Cortés R.N. (02:04 12/28/2016)] [Electronically signed by Sonu Ruzi MD (20:22 12/28/2016)] [Electronically locked/signed by Petty Cortés R.N. (02:04 12/28/2016)]
--- NOTE | 2016-12-28 07:58 | DIAGNOSTIC IMAGING REPORT ---
PROCEDURE: US COMPLETE PELVIC W/TRANSVAG INDICATION: PAIN TECHNIQUE: Transabdominal and endovaginal marquis scale and color Doppler sonographic images of the female pelvis were obtained. COMPARISON: 11/05/2016 and 11/23/2016 FINDINGS: TRANSABDOMINAL SCANS: Anteverted uterus measures 7.3 x 3.7 x 3.5 cm. Normal contour and echotexture. Normal adnexa without suspicious mass. There is a corpus luteum cyst on the left ovary. The visible portion of the urinary bladder is normal. No significant free pelvic fluid. TRANSVAGINAL SCANS: The uterus is anteverted in position and has a homogeneous myometrial echotexture. Normal vascularity. The endometrium is approximately 10.6 mm in thickness. Small amount of heterogeneously hypoechoic avascular material in the lower uterine segment endometrial canal. No discrete fluid collection. No gestational sac. The right ovary measures 2.1 x 2.1 x 1.8 cm and has a normal follicular echotexture. There is normal arterial and venous ovarian flow present. The left ovary measures 3.1 x 2.7 x 2.7 cm and also has a normal follicular echotexture and normal vascularity. No suspicious adnexal masses or free pelvic fluid. IMPRESSION: 1. Small amount of complex hypoechoic material within the lower uterine segment endometrium likely represents blood products or sloughing products of conception. 2. Normal ovaries. 3. No viable intrauterine .
--- NOTE | 2016-12-28 20:23 | ED MED RECONCILIATION SUMMARY ---
Patient: HARLEY ACOSTA Medication Reconciliation Report [facility] VisitID: [id number] [address] [place] [address] 31y, F Registration Date/Time: 12/27/2016 Weight: 45.3 kg Height/Length: 63 in. BMI: 17.7 ALLERGIES: Aspirin, Reglan, Vicoden The patient's Home Medications are listed below: NONE. The source(s) of the original Home Medication information: Not obtained. The following Medications were given to the patient in the Emergency Department: IV NS IV Fluids bolus 500 mL wide open, administered: 12/27/2016 11:02:00 PM Dilaudid [IVP] IVP 0.5 mg, administered: 12/27/2016 11:01:00 PM Dilaudid [IVP] IVP 1 mg, administered: 12/28/2016 12:44:00 AM The following Medications were prescribed to the patient: None.
--- NOTE | 2016-12-28 20:23 | ED DISCHARGE INSTRUCTIONS ---
Patient: HARLEY ACOSTA General Instructions [facility] VisitID: [id number] [address] [place] [phone] 31y, F Registration Date/Time: 12/27/2016 Ectopic . ABDOMINAL PAIN AND . INSTRUCTIONS (YOU COULD HAVE A VERY EARLY TUBAL - REPEAT QUANTITATIVE HCG AND RE EXAM THIS COULD ALSO BE AN EARLY MISCARRIAGE THIS COULD ALSO BE EARLY APPENDICITIS. - SO RECECK IN ED IN 24 HOURS IF NOT BETTER. IMMEDIATE RECHECK IF LOTS WORSE YOU HAVE HAD OVER 50 OXYCODONE IN NOVEMBER. I DO NOT THINK MORE WOULD BE IN YOUR BEST INTEREST.). Understanding of the discharge instructions verbalized by patient and family. Follow-up with: Deion Rubio MD, Obstetrics/Gynecology, , [facility], [address] [place] [address] Follow up. Reason for referral: RE EXAM AFER 48 HOUR BLOOD DRAW. ADDITIONAL INFORMATION Abdominal Pain And Early [R/O Sab, Ectopic: Serial Q-Hcg's] Based on your visit today, we know you are . But, the exact cause of your abdominal (stomach) pain is not certain. Some pain or bleeding may occur in a NORMAL . But pain may also be a sign of a MISCARRIAGE or an ECTOPIC (baby growing in the Fallopian tube instead of the uterus). An ectopic is a very serious condition. It can lead to severe internal bleeding and even . Therefore, further tests are needed to find out the cause of your symptoms. These may include: ULTRASOUND - A pelvic ultrasound can detect a normal as early as 4-5 weeks of age. But, if the ultrasound test does not show the baby inside the uterus, it means that i) you have a normal less than 4 weeks old, ii) you are having or recently had a miscarriage or iii) you have an ectopic . QUANTITATIVE HCG - a test that measures the amount of hormone in your blood. Comparing today's test result to a repeat test in 48 hours shows whether or not you have a normal . LAPAROSCOPY - a surgical procedure where a tube with a light is placed inside the abdomen to look directly at the pelvic organs. This is used when it is not safe to wait 48 hours for blood test results. Important If you do have an ectopic , there is a small chance that the growing fetus can tear the Fallopian tube and cause severe internal bleeding. If this happens, there may be SUDDEN SEVERE LOWER ABDOMINAL PAIN, VAGINAL BLEEDING, WEAKNESS, DIZZINESS and sometimes FAINTING. If any of these symptoms occur: CALL AN AMBULANCE (call 911) or return immediately to the hospital. DO NOT DRIVE YOURSELF. DO NOT GO TO YOUR DOCTOR'S OFFICE OR TO A CLINIC. Home Care: Rest until your next exam. Do not perform any strenuous activity. Eat a light diet with foods that are easy to digest. Avoid sexual intercourse until all symptoms have gone away and you are cleared by your doctor. Follow Up with your doctor or this facility as advised for repeat blood testing. [NOTE: If you had an X-ray or ultrasound test, it will be reviewed by a specialist. You will be notified of any new findings that may affect your care.] Get Prompt Medical Attention if any of the following occur: Sudden or gradual worsening abdominal pain Fainting, dizziness or weakness when standing Heavy vaginal bleeding (soaking one pad an hour for three hours) Vaginal bleeding for more than 5 days Repeated vomiting or diarrhea Pain that moves to the right lower abdomen (stomach) Blood in vomit or bowel movements (dark red or black color) Fever of 100.4F (38C) or higher, or as directed by your healthcare provider You have been given the following additional information: Abdominal Pain, Early (Electronically signed by Sonu Ruiz MD 12/28/2016 20:22)
--- NOTE | 2016-12-28 20:23 | ED MAR SUMMARY ---
..... Medication Administration Record [facility] [address] [address] Patient: HARLEY ACOSTA Visit ID: [id number] 31y, F Weight: 45.3 kg Height/Length: 63 in BMI: 17.7 ALLERGIES: Reglan, Vicoden, Aspirin Given 23:01 12/27/2016 Chris Willis R.N. Medication Administered: DILAUDID [IVP] (HYDROMORPHONE HCL PF), Dose: 0.5 mg IVP over 2 minute(s), Site: #1 left AC. Medication Ordered: Dilaudid IV 0.5 mg (HIGH ALERT MEDICATION, NOW). Start 23:02 12/27/2016 Chris Willis R.N., Stop 00:01 12/28/2016 Petty Cortés RSilvestre Medication Administered: IV NS (SALINE), Dose: IV Fluids, Bolus: 500 mL wide open, Dispensed: 500 mL bag, Site: #1 left AC. Medication Ordered: IV NS : initial bolus none -, then 500 mL/hr for 2h (NOW); Urgent. Given 00:44 12/28/2016 Petty Cortés RNikoleNNikole Medication Administered: DILAUDID [IVP] (HYDROMORPHONE HCL PF), Dose: 1 mg IVP over 90 second(s), Site: #1 left AC. Medication Ordered: Dilaudid IV 1 mg (NOW).
--- NOTE | 2016-12-28 20:23 | ED MED RECONCILIATION SUMMARY ---
Patient: HARLEY ACOSTA Medication Reconciliation Report [facility] VisitID: [id number] [address] [place] [address] 31y, F Registration Date/Time: 12/27/2016 Weight: 45.3 kg Height/Length: 63 in. BMI: 17.7 ALLERGIES: Aspirin, Reglan, Vicoden The patient's Home Medications are listed below: NONE. The source(s) of the original Home Medication information: Not obtained. The following Medications were given to the patient in the Emergency Department: IV NS IV Fluids bolus 500 mL wide open, administered: 12/27/2016 11:02:00 PM Dilaudid [IVP] IVP 0.5 mg, administered: 12/27/2016 11:01:00 PM Dilaudid [IVP] IVP 1 mg, administered: 12/28/2016 12:44:00 AM The following Medications were prescribed to the patient: None.
--- NOTE | 2016-12-28 20:23 | ED MAR SUMMARY ---
..... Medication Administration Record [facility] [address] [place] [address] Patient: HARLEY ACOSTA Visit ID: [id number] 31y, F Weight: 45.3 kg Height/Length: 63 in BMI: 17.7 ALLERGIES: Reglan, Vicoden, Aspirin Given 23:01 12/27/2016 Chris Willis R.N. Medication Administered: DILAUDID [IVP] (HYDROMORPHONE HCL PF), Dose: 0.5 mg IVP over 2 minute(s), Site: #1 left AC. Medication Ordered: Dilaudid IV 0.5 mg (HIGH ALERT MEDICATION, NOW). Start 23:02 12/27/2016 Chris Willis R.N., Stop 00:01 12/28/2016 Petty Cortés RSilvestre Medication Administered: IV NS (SALINE), Dose: IV Fluids, Bolus: 500 mL wide open, Dispensed: 500 mL bag, Site: #1 left AC. Medication Ordered: IV NS : initial bolus none -, then 500 mL/hr for 2h (NOW); Urgent. Given 00:44 12/28/2016 Petty Cortés RNikoleNNikole Medication Administered: DILAUDID [IVP] (HYDROMORPHONE HCL PF), Dose: 1 mg IVP over 90 second(s), Site: #1 left AC. Medication Ordered: Dilaudid IV 1 mg (NOW).
--- NOTE | 2016-12-28 20:23 | ED DISCHARGE INSTRUCTIONS ---
Patient: HARLEY ACOSTA General Instructions [facility] VisitID: [id number] [address] [id number] 31y, F Registration Date/Time: 12/27/2016 Ectopic . ABDOMINAL PAIN AND . INSTRUCTIONS (YOU COULD HAVE A VERY EARLY TUBAL - REPEAT QUANTITATIVE HCG AND RE EXAM THIS COULD ALSO BE AN EARLY MISCARRIAGE THIS COULD ALSO BE EARLY APPENDICITIS. - SO RECECK IN ED IN 24 HOURS IF NOT BETTER. IMMEDIATE RECHECK IF LOTS WORSE YOU HAVE HAD OVER 50 OXYCODONE IN NOVEMBER. I DO NOT THINK MORE WOULD BE IN YOUR BEST INTEREST.). Understanding of the discharge instructions verbalized by patient and family. Follow-up with: Deion Rubio MD, Obstetrics/Gynecology, , [facility], [address] [place] [address] Follow up. Reason for referral: RE EXAM AFER 48 HOUR BLOOD DRAW. ADDITIONAL INFORMATION Abdominal Pain And Early [R/O Sab, Ectopic: Serial Q-Hcg's] Based on your visit today, we know you are . But, the exact cause of your abdominal (stomach) pain is not certain. Some pain or bleeding may occur in a NORMAL . But pain may also be a sign of a MISCARRIAGE or an ECTOPIC (baby growing in the Fallopian tube instead of the uterus). An ectopic is a very serious condition. It can lead to severe internal bleeding and even . Therefore, further tests are needed to find out the cause of your symptoms. These may include: ULTRASOUND - A pelvic ultrasound can detect a normal as early as 4-5 weeks of age. But, if the ultrasound test does not show the baby inside the uterus, it means that i) you have a normal less than 4 weeks old, ii) you are having or recently had a miscarriage or iii) you have an ectopic . QUANTITATIVE HCG - a test that measures the amount of hormone in your blood. Comparing today's test result to a repeat test in 48 hours shows whether or not you have a normal . LAPAROSCOPY - a surgical procedure where a tube with a light is placed inside the abdomen to look directly at the pelvic organs. This is used when it is not safe to wait 48 hours for blood test results. Important If you do have an ectopic , there is a small chance that the growing fetus can tear the Fallopian tube and cause severe internal bleeding. If this happens, there may be SUDDEN SEVERE LOWER ABDOMINAL PAIN, VAGINAL BLEEDING, WEAKNESS, DIZZINESS and sometimes FAINTING. If any of these symptoms occur: CALL AN AMBULANCE (call 911) or return immediately to the hospital. DO NOT DRIVE YOURSELF. DO NOT GO TO YOUR DOCTOR'S OFFICE OR TO A CLINIC. Home Care: Rest until your next exam. Do not perform any strenuous activity. Eat a light diet with foods that are easy to digest. Avoid sexual intercourse until all symptoms have gone away and you are cleared by your doctor. Follow Up with your doctor or this facility as advised for repeat blood testing. [NOTE: If you had an X-ray or ultrasound test, it will be reviewed by a specialist. You will be notified of any new findings that may affect your care.] Get Prompt Medical Attention if any of the following occur: Sudden or gradual worsening abdominal pain Fainting, dizziness or weakness when standing Heavy vaginal bleeding (soaking one pad an hour for three hours) Vaginal bleeding for more than 5 days Repeated vomiting or diarrhea Pain that moves to the right lower abdomen (stomach) Blood in vomit or bowel movements (dark red or black color) Fever of 100.4F (38C) or higher, or as directed by your healthcare provider You have been given the following additional information: Abdominal Pain, Early (Electronically signed by Sonu Ruiz MD 12/28/2016 20:22)
== END 2016-12-28 02:00 | disposition home or self-care (01) ==
LOC: ED SRH 20:29
DX: O26.891 Other specified pregnancy related conditions, first trimester (principal); R10.33 Periumbilical pain; Z3A.01 Less than 8 weeks gestation of pregnancy
CPT/HCPCS: 90001; 90004; 90074; 90155; 90197; 92235; 95059

== ENCOUNTER 2017-04-03 18:59 | Emergency (ER) | payer OTHER ==
--- NOTE | 2017-04-03 21:35 | ED ORDER SUMMARY ---
..... Patient: HARLEY ACOSTA OrderSheet [facility] VisitID: [id number] [place] [address] 31y, F Registration Date/Time: 04/03/2017 ORDER SHEET Weight: 43.5 kg (stated) Allergies: Aspirin, Reglan, Vicoden GENERAL ORDERS: CBC w Diff Urgent (19:20 04/03/2017 EKoroleva P.A.-C) (Ack 19:23 CHagerty ER Line Patroller) (19:50 DDean R.N.) BMP Urgent (19:20 04/03/2017 EKoroleva P.A.-C) (Ack 19:23 CHagerty ER Line Patroller) (19:50 DDean R.N.) UA-Culture if indicated Urgent (19:20 04/03/2017 EKoroleva P.A.-C) (Ack 19:23 CHagerty ER Line Patroller) (19:50 DDean R.N.) Urine Urgent (19:20 04/03/2017 EKoroleva P.A.-C) (Ack 19:23 CHagerty ER Line Patroller) (19:50 DDean R.N.) Pelvic Exam Setup (19:20 04/03/2017 EKoroleva P.A.-C) (Ack 19:58 DDean R.N.) (20:42 DDean R.N.) Vitals (21:03 04/03/2017 EKoroleva P.A.-C) (21:28 DDean R.N.) MEDICATION ORDERS: Percocet PO 5/325 mg (HIGH ALERT MEDICATION) (19:44 04/03/2017 EKoroleva P.A.-C) (Ack 19:51 DDean R.N.) (19:58 DDean R.N.) Ceftriaxone IM 250 mg (NOW) (20:39 04/03/2017 EKoroleva P.A.-C) (Ack 20:43 DDean R.N.) (21:06 DDean R.N.) Doxycycline Monohydrate PO 100 mg (NOW) (20:39 04/03/2017 EKoroleva P.A.-C) (Ack 20:43 DDean R.N.) (21:07 DDean R.N.) IV FLUIDS: IV NS : initial bolus 1000 mL (1000 mL/hr), then 1000 mL/hr for X1 (NOW); Simón (19:19 04/03/2017 EKoroleva P.A.-C) (19:49 DDean R.N.) Zofran IV 8 mg (NOW) (19:54 04/03/2017 EKoroleva P.A.-C) (19:58 DDean R.N.) Toradol IV 30 mg (NOW) (20:37 04/03/2017 EKoroleva P.A.-C) (Ack 20:43 DDean R.N.) (21:06 DDean R.N.) Dilaudid IV 1 mg (HIGH ALERT MEDICATION, NOW) (21:28 04/03/2017 EKoroleva P.A.-C) (Ack 21:29 DDean R.N.) (21:34 DDean R.N.) Dilaudid IV 0.5 mg (HIGH ALERT MEDICATION, NOW) (22:51 04/03/2017 DDean R.N. per protocol) (22:52 DDean R.N.) ORDER SHEET NOTES: [Electronically signed by Melissa Gallo R.N. (22:57 04/03/2017)] [Electronically signed by Sharon Thacker P.A.-C (13:49 04/04/2017)] [Electronically locked/signed by Melissa Gallo R.N. (22:57 04/03/2017)]
--- NOTE | 2017-04-03 21:35 | ED ORDER SUMMARY ---
..... Patient: HARLEY ACOSTA OrderSheet [facility] VisitID: [id number] [place] [address] 31y, F Registration Date/Time: 04/03/2017 ORDER SHEET Weight: 43.5 kg (stated) Allergies: Aspirin, Reglan, Vicoden GENERAL ORDERS: CBC w Diff Urgent (19:20 04/03/2017 EKoroleva P.A.-C) (Ack 19:23 CHagerty ER Utility Repairer) (19:50 DDean R.N.) BMP Urgent (19:20 04/03/2017 EKoroleva P.A.-C) (Ack 19:23 CHagerty ER Utility Repairer) (19:50 DDean R.N.) UA-Culture if indicated Urgent (19:20 04/03/2017 EKoroleva P.A.-C) (Ack 19:23 CHagerty ER Utility Repairer) (19:50 DDean R.N.) Urine Urgent (19:20 04/03/2017 EKoroleva P.A.-C) (Ack 19:23 CHagerty ER Utility Repairer) (19:50 DDean R.N.) Pelvic Exam Setup (19:20 04/03/2017 EKoroleva P.A.-C) (Ack 19:58 DDean R.N.) (20:42 DDean R.N.) Vitals (21:03 04/03/2017 EKoroleva P.A.-C) (21:28 DDean R.N.) MEDICATION ORDERS: Percocet PO 5/325 mg (HIGH ALERT MEDICATION) (19:44 04/03/2017 EKoroleva P.A.-C) (Ack 19:51 DDean R.N.) (19:58 DDean R.N.) Ceftriaxone IM 250 mg (NOW) (20:39 04/03/2017 EKoroleva P.A.-C) (Ack 20:43 DDean R.N.) (21:06 DDean R.N.) Doxycycline Monohydrate PO 100 mg (NOW) (20:39 04/03/2017 EKoroleva P.A.-C) (Ack 20:43 DDean R.N.) (21:07 DDean R.N.) IV FLUIDS: IV NS : initial bolus 1000 mL (1000 mL/hr), then 1000 mL/hr for X1 (NOW); Simón (19:19 04/03/2017 EKoroleva P.A.-C) (19:49 DDean R.N.) Zofran IV 8 mg (NOW) (19:54 04/03/2017 EKoroleva P.A.-C) (19:58 DDean R.N.) Toradol IV 30 mg (NOW) (20:37 04/03/2017 EKoroleva P.A.-C) (Ack 20:43 DDean R.N.) (21:06 DDean R.N.) Dilaudid IV 1 mg (HIGH ALERT MEDICATION, NOW) (21:28 04/03/2017 EKoroleva P.A.-C) (Ack 21:29 DDean R.N.) (21:34 DDean R.N.) Dilaudid IV 0.5 mg (HIGH ALERT MEDICATION, NOW) (22:51 04/03/2017 DDean R.N. per protocol) (22:52 DDean R.N.) ORDER SHEET NOTES: [Electronically signed by Melissa Gallo R.N. (22:57 04/03/2017)] [Electronically signed by Sharon Tahcker P.A.-C (13:49 04/04/2017)] [Electronically locked/signed by Melissa Gallo R.N. (22:57 04/03/2017)]
--- NOTE | 2017-04-03 21:35 | ED CLINICAL REPORT ---
Clinical Report - Physicians/Mid Levels [facility] [address] [place] [address] 04/03/2017 19:00 Patient: HARLEY ACOSTA Time Seen: 19:42 Apr 03 2017. Arrived- By private vehicle. Historian- patient. HISTORY OF PRESENT ILLNESS Chief Complaint: PELVIC PAIN. 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 The symptoms are described as moderate. The patient has had pelvic pain and lower back pain. No pain with urination, urinary frequency or urgency of urination. (patient presents with pelvic pain ongoing over the last 2 weeks, was seen twice at urgent care started on metronidazole, PO and insertion vaginally, has been using such for 10 days, minimal improvement. Denies any fevers. Patient is sexually active. In addition patient has had a headache over the last few days, frontal in nature, worsens when light or any sound. She denies fevers neck pain or back pain.). REVIEW OF SYSTEMS No diarrhea, sore throat or skin rash. All systems otherwise negative, except as recorded above. PAST HISTORY Problems: Ectopic . Threatened . OB History. Care. Constipation. Back Pain. UTI - Urinary Tract Infection. Intrauterine . . Bronchitis. Additional Surgeries: no known surgeries. Medications: MetroNIDAZOLE Oral has been taking x 2 weeks. Allergies: Aspirin. Reglan. Vicoden. SOCIAL HISTORY Never smoker. Alcohol use. ADDITIONAL NOTES The nursing notes have been reviewed. PHYSICAL EXAM Vital Signs: 04/03/2017 19:13 BP: 104/69. HR: 81. RR: 18. O2 saturation: 100%. Temp: 98 F. Pain level now: 10/10. Appearance: Alert. HEENT: Normal external inspection. Neck: Neck supple. No lymphadenopathy. CVS: Heart sounds normal. Respiratory: No respiratory distress. Abdomen: Soft and nontender. Bowel sounds normal. No abdominal tenderness. Back: No CVA tenderness. : Speculum and bimanual exam performed. External inspection normal. Speculum exam normal. No vaginal discharge or bleeding. Bimanual exam normal. Mild uterine tenderness. No cervical motion tenderness. Uterine tenderness. Neuro: Oriented X 3. Mood/affect normal. No motor deficit. LABS, X-RAYS, AND EKG Pelvic Sonogram: IMPRESSION: 1. Small amount of complex hypoechoic material within the lower uterine segment endometrium likely represents blood products or sloughing products of conception. 2. Normal ovaries. 3. No viable intrauterine . Electronically Final signed by:Uzma Mandel MD 12/28/2016 7:58:34 AM. Laboratory Tests: UA-Culture if indicated: (NATALIE: 04/03/2017 19:27) ( [facility] 04/03/2017 19:55) Final results Test Result Flag Units (Reference) URINE COLOR BARON URINE APPEARANCE SL CLOUDY URINE GLUCOSE NEGATIVE (NEGATIVE) URINE BILIRUBIN 1+ (NEGATIVE) URINE KETONE TRACE (NEGATIVE) URINE SPECIFIC GRAVITY 1.020 (1.010-1.030) URINE PH 7.0 (5.0-8.0) URINE PROTEIN 2+ (NEGATIVE) URINE UROBILINOGEN 1.0 EU/dL (0.2-1.0) URINE NITRITE NEGATIVE (NEGATIVE) URINE BLOOD NEGATIVE (NEGATIVE) URINE LEUK ESTERASE TRACE (NEGATIVE) URINE RBC NONE SEEN rbc/hpf (0-1) URINE WBC 10-15 wbc/hpf (0-1) URINE EPITHELIAL CELLS 5-10 EPI/hpf (0-5) URINE BACTERIA NONE SEEN (NONE SEEN) URINE COMMENT CULTURE INDICATED 3+ MUCUSURINE CULTURES ARE SET-UP BASED ON THE FOLLOWING CRITERIA:POSITIVE NITRITEPOSITIVE LEUKOCYTE ESTERASEGREATER THAN 10 WHITE BLOOD CELLSMODERATE (2+) OR GREATER BACTERIA Urine: (NATALIE: 04/03/2017 19:27) ( [facility] 04/03/2017 19:49) Final results Test Result Flag Units (Reference) URINE NEGATIVE CBC w Diff: (NATALIE: 04/03/2017 19:30) ( [facility] 04/03/2017 19:54) Final results Test Result Flag Units (Reference) WHITE BLOOD COUNT 7.7 K/uL (4.5-11.5) RED BLOOD COUNT 4.63 M/uL (4.00-5.20) HEMOGLOBIN 14.3 gm/dL (12.0-16.0) HEMATOCRIT 43.0 % (36.0-46.0) MEAN CELL VOLUME 93 fL (80-100) MEAN CORPUSCULAR HGB 31 pg (26-34) MEAN CORPUSCULAR HGB CONC 33 g/dL (31-37) RED CELL DISTRIBUTION WIDTH 13.2 % (11.6-14.8) PLATELET COUNT 286 K/uL (150-400) NEUTROPHIL % 54.9 % (50-75) LYMPH % 31.9 % (25-40) MONO % 9.8 % (3-14) EOSINOPHIL % 3.1 % (0-4) BASOPHIL % 0.3 % (0-2) BMP: (NATALIE: 04/03/2017 19:30) ( MsgRcvd 04/03/2017 20:07) Final results Test Result Flag Units (Reference) GLUCOSE 89 mg/dL (70-110) BUN 13 mg/dL (7-18) CREATININE 0.5 L mg/dL (0.6-1.3) Estimated GFR >60 mL/min Estimated GFR- >60 mL/min Note: Persistent reduction over 3 months in eGFR<60 mL/min/1.73 m2 defines CKD. Patients with eGFR values>=60 mL/min/1.73 m2 may also have CKD if evidence ofpersistent proteinuria. Additional information may be foundat www.kidney.org. SODIUM 145 mmol/L (136-145) POTASSIUM 3.7 mmol/L (3.5-5.1) CHLORIDE 105 mmol/L (98-107) CARBON DIOXIDE 26 mmol/L (21-32) CALCIUM 8.9 mg/dL (8.5-10.1) Culture, Urine: (NATALIE: 04/03/2017 19:27) ( MsgRcvd 04/04/2017 11:55) IP Test Result Flag Units (Reference) CULTURE, URINE DATE: 04/04/17 PRELIM REPORT: PRELIMINARY REPORT #1 VERY EARLY GROWTH: VERY EARLY GROWTH: CULTURE TOO YOUNG FOR WORKUP-REINCUBATED . PROGRESS AND PROCEDURES Course of Care: patient with signs of pelvic pain with negative in the emergency Department. Will treat for PID. I do not suspect a surgical abdomen. 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 At this time in addition and suspect her headache to be related to an intracranial hemorrhage, or concern for such such as meningitis. 04/03/2017 22:20 BP: 103/61. HR: 76. RR: 18. O2 saturation: 99%. Pain level now: 5/10. Patient is stable. Symptoms better. Patient/family counseled. Differential Diagnosis: I considered upper abdominal etiology, perforated peptic ulcer, acute cholecystitis, pancreatitis, acute appendicitis, mesenteric lymphadenitis, Meckel's diverticulum, diverticulitis, ulcerative colitis, Crohn's disease, small bowel obstruction, adhesions, ischemia, urinary tract infection, cystitis, prostatitis, ureterolithiasis, urinary obstruction, ovarian cyst, ovarian torsion, , ectopic , pelvic abscess, endometriosis and Mittelschmerz syndrome as a possible cause of pelvic pain in this patient. This is a partial list of diagnoses considered. Disposition: Discharged. Condition: good. CLINICAL IMPRESSION Acute headache. Acute pelvic inflammatory disease. INSTRUCTIONS Drink plenty of fluids. Prescription Medications: Ibuprofen 800 mg tablets: take 1 tablet orally every 8 hours for 5 days, as needed for pain. Dispense fifteen (15). No refill. Percocet 5 mg/325 mg: take 1 tablet orally every 6 hours as needed for pain. Dispense ten (10). No refill. Substitution is permissible. Doxycycline 100 mg: Take 1 capsule orally for 10 days. No refill. Follow-up: Follow up with a specialist YOUR MECHANICAL RESEARCH ENGINEER "women's health " DR in three days. (Electronically signed by Sharon Thacker P.A.-C 04/04/2017 13:49)
--- NOTE | 2017-04-03 21:35 | ED CLINICAL REPORT ---
Clinical Report - Physicians/Mid Levels [facility] [address] [place] [address] 04/03/2017 19:00 Patient: HARLEY ACOSTA Time Seen: 19:42 Apr 03 2017. Arrived- By private vehicle. Historian- patient. HISTORY OF PRESENT ILLNESS Chief Complaint: PELVIC PAIN. 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 The symptoms are described as moderate. The patient has had pelvic pain and lower back pain. No pain with urination, urinary frequency or urgency of urination. (patient presents with pelvic pain ongoing over the last 2 weeks, was seen twice at urgent care started on metronidazole, PO and insertion vaginally, has been using such for 10 days, minimal improvement. Denies any fevers. Patient is sexually active. In addition patient has had a headache over the last few days, frontal in nature, worsens when light or any sound. She denies fevers neck pain or back pain.). REVIEW OF SYSTEMS No diarrhea, sore throat or skin rash. All systems otherwise negative, except as recorded above. PAST HISTORY Problems: Ectopic . Threatened . OB History. Care. Constipation. Back Pain. UTI - Urinary Tract Infection. Intrauterine . . Bronchitis. Additional Surgeries: no known surgeries. Medications: MetroNIDAZOLE Oral has been taking x 2 weeks. Allergies: Aspirin. Reglan. Vicoden. SOCIAL HISTORY Never smoker. Alcohol use. ADDITIONAL NOTES The nursing notes have been reviewed. PHYSICAL EXAM Vital Signs: 04/03/2017 19:13 BP: 104/69. HR: 81. RR: 18. O2 saturation: 100%. Temp: 98 F. Pain level now: 10/10. Appearance: Alert. HEENT: Normal external inspection. Neck: Neck supple. No lymphadenopathy. CVS: Heart sounds normal. Respiratory: No respiratory distress. Abdomen: Soft and nontender. Bowel sounds normal. No abdominal tenderness. Back: No CVA tenderness. : Speculum and bimanual exam performed. External inspection normal. Speculum exam normal. No vaginal discharge or bleeding. Bimanual exam normal. Mild uterine tenderness. No cervical motion tenderness. Uterine tenderness. Neuro: Oriented X 3. Mood/affect normal. No motor deficit. LABS, X-RAYS, AND EKG Pelvic Sonogram: IMPRESSION: 1. Small amount of complex hypoechoic material within the lower uterine segment endometrium likely represents blood products or sloughing products of conception. 2. Normal ovaries. 3. No viable intrauterine . Electronically Final signed by:Uzma Mandel MD 12/28/2016 7:58:34 AM. Laboratory Tests: UA-Culture if indicated: (NATALIE: 04/03/2017 19:27) ( [facility] 04/03/2017 19:55) Final results Test Result Flag Units (Reference) URINE COLOR BARON URINE APPEARANCE SL CLOUDY URINE GLUCOSE NEGATIVE (NEGATIVE) URINE BILIRUBIN 1+ (NEGATIVE) URINE KETONE TRACE (NEGATIVE) URINE SPECIFIC GRAVITY 1.020 (1.010-1.030) URINE PH 7.0 (5.0-8.0) URINE PROTEIN 2+ (NEGATIVE) URINE UROBILINOGEN 1.0 EU/dL (0.2-1.0) URINE NITRITE NEGATIVE (NEGATIVE) URINE BLOOD NEGATIVE (NEGATIVE) URINE LEUK ESTERASE TRACE (NEGATIVE) URINE RBC NONE SEEN rbc/hpf (0-1) URINE WBC 10-15 wbc/hpf (0-1) URINE EPITHELIAL CELLS 5-10 EPI/hpf (0-5) URINE BACTERIA NONE SEEN (NONE SEEN) URINE COMMENT CULTURE INDICATED 3+ MUCUSURINE CULTURES ARE SET-UP BASED ON THE FOLLOWING CRITERIA:POSITIVE NITRITEPOSITIVE LEUKOCYTE ESTERASEGREATER THAN 10 WHITE BLOOD CELLSMODERATE (2+) OR GREATER BACTERIA Urine: (NATALIE: 04/03/2017 19:27) ( [facility] 04/03/2017 19:49) Final results Test Result Flag Units (Reference) URINE NEGATIVE CBC w Diff: (NATALIE: 04/03/2017 19:30) ( [facility] 04/03/2017 19:54) Final results Test Result Flag Units (Reference) WHITE BLOOD COUNT 7.7 K/uL (4.5-11.5) RED BLOOD COUNT 4.63 M/uL (4.00-5.20) HEMOGLOBIN 14.3 gm/dL (12.0-16.0) HEMATOCRIT 43.0 % (36.0-46.0) MEAN CELL VOLUME 93 fL (80-100) MEAN CORPUSCULAR HGB 31 pg (26-34) MEAN CORPUSCULAR HGB CONC 33 g/dL (31-37) RED CELL DISTRIBUTION WIDTH 13.2 % (11.6-14.8) PLATELET COUNT 286 K/uL (150-400) NEUTROPHIL % 54.9 % (50-75) LYMPH % 31.9 % (25-40) MONO % 9.8 % (3-14) EOSINOPHIL % 3.1 % (0-4) BASOPHIL % 0.3 % (0-2) BMP: (NATALIE: 04/03/2017 19:30) ( MsgRcvd 04/03/2017 20:07) Final results Test Result Flag Units (Reference) GLUCOSE 89 mg/dL (70-110) BUN 13 mg/dL (7-18) CREATININE 0.5 L mg/dL (0.6-1.3) Estimated GFR >60 mL/min Estimated GFR- >60 mL/min Note: Persistent reduction over 3 months in eGFR<60 mL/min/1.73 m2 defines CKD. Patients with eGFR values>=60 mL/min/1.73 m2 may also have CKD if evidence ofpersistent proteinuria. Additional information may be foundat [email or web address].org. SODIUM 145 mmol/L (136-145) POTASSIUM 3.7 mmol/L (3.5-5.1) CHLORIDE 105 mmol/L (98-107) CARBON DIOXIDE 26 mmol/L (21-32) CALCIUM 8.9 mg/dL (8.5-10.1) Culture, Urine: (NATALIE: 04/03/2017 19:27) ( MsgRcvd 04/04/2017 11:55) IP Test Result Flag Units (Reference) CULTURE, URINE DATE: 04/04/17 PRELIM REPORT: PRELIMINARY REPORT #1 VERY EARLY GROWTH: VERY EARLY GROWTH: CULTURE TOO YOUNG FOR WORKUP-REINCUBATED . PROGRESS AND PROCEDURES Course of Care: patient with signs of pelvic pain with negative in the emergency Department. Will treat for PID. I do not suspect a surgical abdomen. 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 At this time in addition and suspect her headache to be related to an intracranial hemorrhage, or concern for such such as meningitis. 04/03/2017 22:20 BP: 103/61. HR: 76. RR: 18. O2 saturation: 99%. Pain level now: 5/10. Patient is stable. Symptoms better. Patient/family counseled. Differential Diagnosis: I considered upper abdominal etiology, perforated peptic ulcer, acute cholecystitis, pancreatitis, acute appendicitis, mesenteric lymphadenitis, Meckel's diverticulum, diverticulitis, ulcerative colitis, Crohn's disease, small bowel obstruction, adhesions, ischemia, urinary tract infection, cystitis, prostatitis, ureterolithiasis, urinary obstruction, ovarian cyst, ovarian torsion, , ectopic , pelvic abscess, endometriosis and Mittelschmerz syndrome as a possible cause of pelvic pain in this patient. This is a partial list of diagnoses considered. Disposition: Discharged. Condition: good. CLINICAL IMPRESSION Acute headache. Acute pelvic inflammatory disease. INSTRUCTIONS Drink plenty of fluids. Prescription Medications: Ibuprofen 800 mg tablets: take 1 tablet orally every 8 hours for 5 days, as needed for pain. Dispense fifteen (15). No refill. Percocet 5 mg/325 mg: take 1 tablet orally every 6 hours as needed for pain. Dispense ten (10). No refill. Substitution is permissible. Doxycycline 100 mg: Take 1 capsule orally for 10 days. No refill. Follow-up: Follow up with a specialist YOUR [employer] "women's health " DR in three days. (Electronically signed by Sharon Thacker P.A.-C 04/04/2017 13:49)
--- NOTE | 2017-04-03 21:35 | ED NURSING NOTES ---
Clinical Report - Nurses [facility] [address] [place] [address] 04/03/2017 19:00 Patient: HARLEY ACOSTA TRIAGE Triage time 1905. Acuity: LEVEL 3. Chief Complaint: PELVIC PAIN and (pt in c/o migraine headache after being outside for last 2 days working. also states that her med state to stay out of the sun). 19:05. --19:23 Melissa Gallo R.N. 19:13 04/03/17. BP: 104/69. HR: 81. RR: 18. O2 saturation: 100%. Temp: 98 F. Pain level now: 07/19. Additional comments: 10 headache, 8 vag pain. --19:23 Melissa Gallo R.N. Weight: 43.5 kg stated. Height/Length: 66 inches Per Patient. BMI: 15.5. --19:21 Melissa Gallo R.N. Medications MetroNIDAZOLE Oral has been taking x 2 weeks. --19:14 Melissa Gallo R.N. Allergies Aspirin. Reglan. Vicoden. --19:04 Melissa Gallo R.N. History Arrived by private vehicle. Historian: patient. Accompanied by friend. No primary care physician. ( also c/o frequency and urgency -- but difficulty voiding "I have to sit there for 10 min"). PAST MEDICAL HX: Last normal menstrual period- 1 week. SURGERY HX: No history of previous surgery. SOCIAL HX: Never smoker. Occasional alcohol use. No drug use. --19:23 Melissa Gallo R.N. PROBLEMS: Ectopic . Threatened . OB History. Constipation. UTI - Urinary Tract Infection. Bronchitis. --19:04 Melissa Gallo R.N. ADDITIONAL SURGERIES: no known surgeries. Interventions ID band on patient. To treatment room. --19:23 Melissa Gallo R.N. PHYSICAL ASSESSMENT 1904. Ambulatory to room. Patient gowned. GENERAL / NEURO / PSYCH: Alert. Oriented X 4. Appears in pain. (c/o headache). RESPIRATORY: Respirations not labored. CVS: Capillary refill less than 2 seconds. GI / : Thick and white vaginal discharge present. No vaginal bleeding. SKIN: Skin is warm and dry. --19:22 Melissa Gallo R.N. NURSING PROGRESS NOTES 19:05. Patient gowned. Head of bed elevated. Reassurance given. Patient identifiers checked. Call light placed in reach. Side rails up. Bed placed in lowest position. Patient ready for evaluation- chart flagged. --19:16 Melissa Gallo R.N. 19:35 04/03/2017 Site #1 started via IV in the right antecubital space with an 20g angiocath, with aseptic technique and good blood return. Blood drawn: rainbow set. Labeled in the presence of the patient and sent to the lab. Saline lock flushed with 10 mL saline. --19:49 Melissa Gallo R.N. 19:35 04/03/2017 Started bag #1 1000 mL IV Fluids IV NS (Saline); at 1000 mL/hr over 1 minute(s) via site #1 via IV pump. IV patency established. IV site checked: no pain, redness, or swelling. IV flushed thoroughly pre- and post-medication administration. --19:50 Melissa Gallo R.N. 19:20. Patient ID band checked for patient name and birthdate: patient confirmed. Clean catch urine collected with return of yellow-colored clear urine; sample sent to lab for urinalysis and culture. Specimen labeled in the presence of the patient. --19:50 Melissa Gallo R.N. IV start and lab drawn. --19:50 Melissa Gallo R.N. 19:56 04/03/2017 Zofran (Ondansetron HCl) IVP 8 mg given over 2 minute(s) via site #1. IV patency established. IV site checked: no pain, redness, or swelling. IV flushed thoroughly pre- and post-medication administration. IVP given by RN. --19:58 Melissa Gallo R.N. 19:57 04/03/2017 Percocet (Oxycodone-Acetaminophen) PO 5/325 mg Tablets 1 tab given. Allergies verified, confirmed 5 rights and sedative warning given to the patient. --19:58 Melissa Gallo R.N. 20:27. PELVIC EXAM: Pelvic exam performed by CORRY. Assisted by one nurse. Preparation: pelvic tray; patient placed in lithotomy position. Procedure: speculum and bimanual exam. Specimens collected and sent to lab: GC, chlamydia, wet prep and DNA probe. Status post-procedure: she was stable. Total time of assist / procedure: 15 minutes. --21:05 Melissa Gallo R.N. 20:40 04/03/2017 IV Fluids IV NS Bag Change: bag #1 infused. STARTED bag #2 (1000 mL) at 1000 mL/hr via IV pump. IV patency established. IV site checked: no pain, redness, or swelling. IV flushed thoroughly. --21:08 Melissa Gallo R.N. 20:50 04/03/2017 Toradol IVP 30 mg given over 1 minute(s) via site #1. IV patency established. IV site checked: no pain, redness, or swelling. IV flushed thoroughly pre- and post-medication administration. IVP given by RN. --21:06 Melissa Gallo R.N. 20:55 04/03/2017 Ceftriaxone IM 250 mg given. Given in the left ventral gluteus. Allergies verified and confirmed 5 rights. --21:06 Melissa Gallo R.N. 20:58 04/03/2017 DOXYCYCLINE MONOHYDRATE PO Tablets 100 mg given. Allergies verified and confirmed 5 rights. --21:07 Melissa Gallo R.N. 21:05 04/03/17. BP: 107/74. HR: 78. RR: 22. O2 saturation: 99%. Temp: deferred. Pain level now: 07/19. Additional comments: states no relief from po or IV pain meds . --21:14 Melissa Gallo R.N. 21:14 04/03/17. ( Pt ambulated to bathroom, walking bent over). --21:14 Melissa Gallo R.N. 21:30 04/03/2017 Dilaudid (HYDROmorphone HCl PF) IVP 1 mg given over 1 minute(s) via site #1. IV patency established. IV site checked: no pain, redness, or swelling. IV flushed thoroughly pre- and post-medication administration. IVP given by RN. --21:34 Melissa Gallo R.N. 22:05 04/03/2017 Dilaudid (HYDROmorphone HCl PF) IVP 0.5 mg given over 1 minute(s) via site #1. Sedative warning given to the patient and patient's family. IV patency established. IV site checked: no pain, redness, or swelling. IV flushed thoroughly pre- and post-medication administration. IVP given by RN. --22:52 Melissa Gallo R.N. 22:04/03/2017 Site #1 removed upon discharge. Bandaid applied. --22:53 Melissa Gallo R.N. 22:04/03/2017 IV Fluids IV NS Discontinued: bag #2 infused upon discharge. Total amount infused: 1000 mL. IV patency established. IV site checked: no pain, redness, or swelling. IV flushed thoroughly. --22:53 Melissa Gallo R.N. 21:55. 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 meds ordered and given). --22:56 Melissa Gallo R.N. DISPOSITION / DISCHARGE 22:20. Condition at departure: improved and stable. No learning barriers present. Discharge instructions provided and reviewed with the spouse. Reviewed medication(s) (motrin, percocet, doxyxycline). 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 Spouse verbalized understanding. Written instructions provided in [place]. The patient was discharged home and accompanied by spouse. She left the Emergency Department ambulatory and via private vehicle. Spouse driving. --22:48 Melissa Gallo R.N. 22:20 04/03/17. BP: 103/61. HR: 76. RR: 18. O2 saturation: 99%. Temp: deferred. Pain level now: 02/16. --22:48 Melissa Gallo R.N. Locked/Released at 04/03/2017 22:57 by Melissa Gallo R.N.
--- NOTE | 2017-04-04 13:49 | ED DISCHARGE INSTRUCTIONS ---
Patient: HARLEY ACOSTA General Instructions [facility] VisitID: [id number] [place] [address] 31y, F Registration Date/Time: 04/03/2017 Acute headache. Acute pelvic inflammatory disease. INSTRUCTIONS Drink plenty of fluids. Prescription Medications: Ibuprofen 800 mg tablets: take 1 tablet orally every 8 hours for 5 days, as needed for pain. Dispense fifteen (15). No refill. Percocet 5 mg/325 mg: take 1 tablet orally every 6 hours as needed for pain. Dispense ten (10). No refill. Substitution is permissible. Doxycycline 100 mg: Take 1 capsule orally for 10 days. No refill. 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 ADDITIONAL INFORMATION Pelvic Inflammatory Disease Pelvic Inflammatory Disease (PID) is an infection of the female organs (uterus, ovary, or Fallopian tubes). This is most often the result of a sexually transmitted disease (STD). Sometimes, PID can be due to an overgrowth of normal bacteria and not caused by an STD. Whatever its cause, PID is a serious problem. It can lead to infertility (inability to become ) unless it is treated promptly. Home Care: Take all of the medicine prescribed, even if you start to feel better before taking all the pills. You may use acetaminophen (Tylenol) or ibuprofen (Motrin, Advil) to control pain, unless another pain medicine was prescribed. [NOTE: If you have chronic liver or kidney disease or ever had a stomach ulcer or GI bleeding, talk with your doctor before using these medicines.] Your sexual partner should contact his own doctor or go to the Public Health Department to be examined. If his test is positive or if he is having symptoms of discharge or burning when passing urine, he should be treated, too. Avoid sexual activity until both you and your partner have finished taking all of the antibiotic medicine, and your doctor has told you that you are cured. Learn about safe sex practices and use these in the future. The safest sex is with a partner who has tested negative and only has sex with you. Condoms offer protection from spreading some sexually transmitted diseases including Gonorrhea, Chlamydia and HIV, but are not a guarantee. Follow Up with your doctor or as advised by our staff. If a culture test was taken, you may call us in three days for the results, or as directed. Another culture test should be taken 4-6 weeks after treatment to be sure the infection has cleared. Follow up with your doctor or the Public Health Department for complete STD screening, including HIV testing. For more information about STD's, contact the National STD Hotline: . Get Prompt Medical Attention if any of the following occur: No improvement after three days of treatment New or increasing lower abdominal pain or back pain Unexpected vaginal bleeding Weakness, dizziness or fainting Repeated vomiting Inability to urinate due to pain Rash or joint pain Painful open sores around the outer vagina Enlarged painful lymph nodes (lumps) in the groin Headache [Unspecified] The cause of your headache today is not clear, but it does not appear to be the sign of any serious illness. Under stress, some people tense the muscles of their shoulder, neck and scalp without knowing it. If this condition lasts long enough, a TENSION HEADACHE can occur. A MIGRAINE HEADACHE is caused by changes in blood flow to the brain. A migraine attack may be triggered by emotional stress, hormone changes during the menstrual cycle, oral contraceptives, alcohol use, certain foods containing tyramine, eye strain, weather changes, missing meals, lack of sleep or oversleeping. Other causes of headache include a viral illness with high fever, head injury with concussion, sinus, ear or throat infection, dental pain and TMJ (jaw joint) pain. More serious but less common causes of headache include stroke, brain hemorrhage, brain tumor, meningitis and encephalitis. Home Care: If you were given pain medicine for this headache, do not drive yourself home. Arrange for a ride, instead. When you get home, try to sleep. You should feel much better when you wake up. Apply heat to the back of your neck to relieve neck muscle spasm. Migraine headaches may respond best to an ice pack on the forehead or at the base of the skull. If you are having nausea or vomiting, follow a light diet until your headache is relieved. If you have a migraine type headache, use sunglasses when in the daylight or around bright indoor lighting until symptoms improve. Bright glaring light can worsen this kind of headache. Follow Up with your doctor if the headache is not better within the next 24 hours. If you have frequent headaches you should discuss a treatment plan with your primary care doctor. By being aware of the earliest signs of headache, and starting treatment right away, you may be able to stop the pain yourself. Get Prompt Medical Attention if any of the following occur: Worsening of your head pain or no improvement within 24 hours Repeated vomiting (unable to keep liquids down) Fever of 100.4F (38C) or higher, or as directed by your healthcare provider Stiff neck Extreme drowsiness, confusion or fainting Dizziness, vertigo (dizziness with spinning sensation) Weakness of an arm or leg or one side of the face Difficulty with speech or vision Oxycodone Hydrochloride, Acetaminophen Oral tablet What is this medicine? ACETAMINOPHEN; OXYCODONE (a set a DINORAH uhgo fen; ox i KOE done) is a pain reliever. It is used to treat mild to moderate pain. How should I use this medicine? Take this medicine by mouth with a full glass of water. Follow the directions on the prescription label. Take your medicine at regular intervals. Do not take your medicine more often than directed. Talk to your four h agent regarding the use of this medicine in children. Special care may be needed. Patients over 65 years old may have a stronger reaction and need a smaller dose. What side effects may I notice from receiving this medicine? Side effects that you should report to your doctor or health skin care therapist as soon as possible: allergic reactions like skin rash, itching or hives, swelling of the face, lips, or tongue breathing difficulties, wheezing confusion light headedness or fainting spells severe stomach pain yellowing of the skin or the whites of the eyes Side effects that usually do not require medical attention (report to your doctor or health skin care therapist if they continue or are bothersome): dizziness drowsiness nausea vomiting What may interact with this medicine? alcohol antihistamines barbiturates like amobarbital, butalbital, butabarbital, methohexital, pentobarbital, phenobarbital, thiopental, and secobarbital benztropine drugs for bladder problems like solifenacin, trospium, oxybutynin, tolterodine, hyoscyamine, and methscopolamine drugs for breathing problems like ipratropium and tiotropium drugs for certain stomach or intestine problems like propantheline, homatropine methylbromide, glycopyrrolate, atropine, belladonna, and dicyclomine general anesthetics like etomidate, ketamine, nitrous oxide, propofol, desflurane, enflurane, halothane, isoflurane, and sevoflurane medicines for depression, anxiety, or psychotic disturbances medicines for sleep muscle relaxants naltrexone narcotic medicines (opiates) for pain phenothiazines like perphenazine, thioridazine, chlorpromazine, mesoridazine, fluphenazine, prochlorperazine, promazine, and trifluoperazine scopolamine tramadol trihexyphenidyl What if I miss a dose? If you miss a dose, take it as soon as you can. If it is almost time for your next dose, take only that dose. Do not take double or extra doses. Where should I keep my medicine? Keep out of the reach of children. This medicine can be abused. Keep your medicine in a safe place to protect it from theft. Do not share this medicine with anyone. Selling or giving away this medicine is dangerous and against the law. Store at room temperature between 20 and 25 degrees C (68 and 77 degrees F). Keep container tightly closed. Protect from light. This medicine may cause accidental overdose and if it is taken by other adults, children, or pets. Flush any unused medicine down the toilet to reduce the chance of harm. Do not use the medicine after the expiration date. What should I tell my health care provider before I take this medicine? They need to know if you have any of these conditions: brain tumor Crohn's disease, inflammatory bowel disease, or ulcerative colitis drink more than 3 alcohol containing drinks per day drug abuse or addiction head injury heart or circulation problems kidney disease or problems going to the bathroom liver disease lung disease, asthma, or breathing problems an unusual or allergic reaction to acetaminophen, oxycodone, other opioid analgesics, other medicines, foods, dyes, or preservatives or trying to get breast-feeding What should I watch for while using this medicine? Tell your doctor or health skin care therapist if your pain does not go away, if it gets worse, or if you have new or a different type of pain. You may develop tolerance to the medicine. Tolerance means that you will need a higher dose of the medication for pain relief. Tolerance is normal and is expected if you take this medicine for a long time. Do not suddenly stop taking your medicine because you may develop a severe reaction. Your body becomes used to the medicine. This does NOT mean you are addicted. Addiction is a behavior related to getting and using a drug for a non-medical reason. If you have pain, you have a medical reason to take pain medicine. Your doctor will tell you how much medicine to take. If your doctor wants you to stop the medicine, the dose will be slowly lowered over time to avoid any side effects. You may get drowsy or dizzy. Do not drive, use machinery, or do anything that needs mental alertness until you know how this medicine affects you. Do not stand or sit up quickly, especially if you are an older patient. This reduces the risk of dizzy or fainting spells. Alcohol may interfere with the effect of this medicine. Avoid alcoholic drinks. There are different types of narcotic medicines (opiates) for pain. If you take more than one type at the same time, you may have more side effects. Give your health care provider a list of all medicines you use. Your doctor will tell you how much medicine to take. Do not take more medicine than directed. Call emergency for help if you have problems breathing. The medicine will cause constipation. Try to have a bowel movement at least every 2 to 3 days. If you do not have a bowel movement for 3 days, call your doctor or health skin care therapist. Do not take Tylenol (acetaminophen) or medicines that have acetaminophen with this medicine. Too much acetaminophen can be very dangerous. Many nonprescription medicines contain acetaminophen. Always read the labels carefully to avoid taking more acetaminophen. You have been given the following additional information: Pelvic Inflammatory Disease Headache, Unspecified Oxycodone Hydrochloride, Acetaminophen Oral tablet (Electronically signed by Sharon Thacker P.A.-C 04/04/2017 13:49)
--- NOTE | 2017-04-04 13:49 | ED MED RECONCILIATION SUMMARY ---
Patient: HARLEY ACOSTA Medication Reconciliation Report [facility] VisitID: [id number] [place] [address] 31y, F Registration Date/Time: 04/03/2017 Weight: 43.5 kg Height/Length: 66 in. BMI: 15.5 ALLERGIES: Aspirin, Reglan, Vicoden The patient's Home Medications are listed below: THE FOLLOWING MEDICATIONS NEED TO BE RECONCILED: MetroNIDAZOLE Oral has been taking x 2 weeks The source(s) of the original Home Medication information: Not obtained. The following Medications were given to the patient in the Emergency Department: IV NS IV Fluids bolus 0, then 1000 mL/hr, administered: 04/03/2017 7:35:00 PM Zofran [IVP] IVP 8 mg, administered: 04/03/2017 7:56:00 PM Percocet [PO] PO 1 tab, administered: 04/03/2017 7:57:00 PM Toradol [IVP] IVP 30 mg, administered: 04/03/2017 8:50:00 PM Ceftriaxone [IM] IM 250 mg, administered: 04/03/2017 8:55:00 PM DOXYCYCLINE MONOHYDRATE [PO] PO 100 mg, administered: 04/03/2017 8:58:00 PM Dilaudid [IVP] IVP 1 mg, administered: 04/03/2017 9:30:00 PM Dilaudid [IVP] IVP 0.5 mg, administered: 04/03/2017 10:05:00 PM The following Medications were prescribed to the patient: Ibuprofen 800 mg tablets: take 1 tablet orally every 8 hours for 5 days, as needed for pain. Dispense fifteen (15). No refill. -- Sharon Thacker, P.A.-C Percocet 5 mg/325 mg: take 1 tablet orally every 6 hours as needed for pain. Dispense ten (10). No refill. Substitution is permissible. -- Sharon Thacker, P.A.-C Doxycycline 100 mg: Take 1 capsule orally for 10 days. No refill. -- Sharon Thacker, P.A.-C
--- NOTE | 2017-04-04 13:49 | ED DISCHARGE INSTRUCTIONS ---
Patient: HARLEY ACOSTA General Instructions [facility] VisitID: [id number] [place] [address] 31y, F Registration Date/Time: 04/03/2017 Acute headache. Acute pelvic inflammatory disease. INSTRUCTIONS Drink plenty of fluids. Prescription Medications: Ibuprofen 800 mg tablets: take 1 tablet orally every 8 hours for 5 days, as needed for pain. Dispense fifteen (15). No refill. Percocet 5 mg/325 mg: take 1 tablet orally every 6 hours as needed for pain. Dispense ten (10). No refill. Substitution is permissible. Doxycycline 100 mg: Take 1 capsule orally for 10 days. No refill. Follow-up: Follow up with a specialist [facility] "women's [facility] " DR in three days. ADDITIONAL INFORMATION Pelvic Inflammatory Disease Pelvic Inflammatory Disease (PID) is an infection of the female organs (uterus, ovary, or Fallopian tubes). This is most often the result of a sexually transmitted disease (STD). Sometimes, PID can be due to an overgrowth of normal bacteria and not caused by an STD. Whatever its cause, PID is a serious problem. It can lead to infertility (inability to become ) unless it is treated promptly. Home Care: Take all of the medicine prescribed, even if you start to feel better before taking all the pills. You may use acetaminophen (Tylenol) or ibuprofen (Motrin, Advil) to control pain, unless another pain medicine was prescribed. [NOTE: If you have chronic liver or kidney disease or ever had a stomach ulcer or GI bleeding, talk with your doctor before using these medicines.] Your sexual partner should contact his own doctor or go to the Public Health Department to be examined. If his test is positive or if he is having symptoms of discharge or burning when passing urine, he should be treated, too. Avoid sexual activity until both you and your partner have finished taking all of the antibiotic medicine, and your doctor has told you that you are cured. Learn about safe sex practices and use these in the future. The safest sex is with a partner who has tested negative and only has sex with you. Condoms offer protection from spreading some sexually transmitted diseases including Gonorrhea, Chlamydia and HIV, but are not a guarantee. Follow Up with your doctor or as advised by our staff. If a culture test was taken, you may call us in three days for the results, or as directed. Another culture test should be taken 4-6 weeks after treatment to be sure the infection has cleared. Follow up with your doctor or the Public Health Department for complete STD screening, including HIV testing. For more information about STD's, contact the National STD Hotline: . Get Prompt Medical Attention if any of the following occur: No improvement after three days of treatment New or increasing lower abdominal pain or back pain Unexpected vaginal bleeding Weakness, dizziness or fainting Repeated vomiting Inability to urinate due to pain Rash or joint pain Painful open sores around the outer vagina Enlarged painful lymph nodes (lumps) in the groin Headache [Unspecified] The cause of your headache today is not clear, but it does not appear to be the sign of any serious illness. Under stress, some people tense the muscles of their shoulder, neck and scalp without knowing it. If this condition lasts long enough, a TENSION HEADACHE can occur. A MIGRAINE HEADACHE is caused by changes in blood flow to the brain. A migraine attack may be triggered by emotional stress, hormone changes during the menstrual cycle, oral contraceptives, alcohol use, certain foods containing tyramine, eye strain, weather changes, missing meals, lack of sleep or oversleeping. Other causes of headache include a viral illness with high fever, head injury with concussion, sinus, ear or throat infection, dental pain and TMJ (jaw joint) pain. More serious but less common causes of headache include stroke, brain hemorrhage, brain tumor, meningitis and encephalitis. Home Care: If you were given pain medicine for this headache, do not drive yourself home. Arrange for a ride, instead. When you get home, try to sleep. You should feel much better when you wake up. Apply heat to the back of your neck to relieve neck muscle spasm. Migraine headaches may respond best to an ice pack on the forehead or at the base of the skull. If you are having nausea or vomiting, follow a light diet until your headache is relieved. If you have a migraine type headache, use sunglasses when in the daylight or around bright indoor lighting until symptoms improve. Bright glaring light can worsen this kind of headache. Follow Up with your doctor if the headache is not better within the next 24 hours. If you have frequent headaches you should discuss a treatment plan with your primary care doctor. By being aware of the earliest signs of headache, and starting treatment right away, you may be able to stop the pain yourself. Get Prompt Medical Attention if any of the following occur: Worsening of your head pain or no improvement within 24 hours Repeated vomiting (unable to keep liquids down) Fever of 100.4F (38C) or higher, or as directed by your healthcare provider Stiff neck Extreme drowsiness, confusion or fainting Dizziness, vertigo (dizziness with spinning sensation) Weakness of an arm or leg or one side of the face Difficulty with speech or vision Oxycodone Hydrochloride, Acetaminophen Oral tablet What is this medicine? ACETAMINOPHEN; OXYCODONE (a set a DINORAH hugo fen; ox i KOE done) is a pain reliever. It is used to treat mild to moderate pain. How should I use this medicine? Take this medicine by mouth with a full glass of water. Follow the directions on the prescription label. Take your medicine at regular intervals. Do not take your medicine more often than directed. Talk to your edge dyer regarding the use of this medicine in children. Special care may be needed. Patients over 65 years old may have a stronger reaction and need a smaller dose. What side effects may I notice from receiving this medicine? Side effects that you should report to your doctor or health lawn care technician as soon as possible: allergic reactions like skin rash, itching or hives, swelling of the face, lips, or tongue breathing difficulties, wheezing confusion light headedness or fainting spells severe stomach pain yellowing of the skin or the whites of the eyes Side effects that usually do not require medical attention (report to your doctor or health lawn care technician if they continue or are bothersome): dizziness drowsiness nausea vomiting What may interact with this medicine? alcohol antihistamines barbiturates like amobarbital, butalbital, butabarbital, methohexital, pentobarbital, phenobarbital, thiopental, and secobarbital benztropine drugs for bladder problems like solifenacin, trospium, oxybutynin, tolterodine, hyoscyamine, and methscopolamine drugs for breathing problems like ipratropium and tiotropium drugs for certain stomach or intestine problems like propantheline, homatropine methylbromide, glycopyrrolate, atropine, belladonna, and dicyclomine general anesthetics like etomidate, ketamine, nitrous oxide, propofol, desflurane, enflurane, halothane, isoflurane, and sevoflurane medicines for depression, anxiety, or psychotic disturbances medicines for sleep muscle relaxants naltrexone narcotic medicines (opiates) for pain phenothiazines like perphenazine, thioridazine, chlorpromazine, mesoridazine, fluphenazine, prochlorperazine, promazine, and trifluoperazine scopolamine tramadol trihexyphenidyl What if I miss a dose? If you miss a dose, take it as soon as you can. If it is almost time for your next dose, take only that dose. Do not take double or extra doses. Where should I keep my medicine? Keep out of the reach of children. This medicine can be abused. Keep your medicine in a safe place to protect it from theft. Do not share this medicine with anyone. Selling or giving away this medicine is dangerous and against the law. Store at room temperature between 20 and 25 degrees C (68 and 77 degrees F). Keep container tightly closed. Protect from light. This medicine may cause accidental overdose and if it is taken by other adults, children, or pets. Flush any unused medicine down the toilet to reduce the chance of harm. Do not use the medicine after the expiration date. What should I tell my health care provider before I take this medicine? They need to know if you have any of these conditions: brain tumor Crohn's disease, inflammatory bowel disease, or ulcerative colitis drink more than 3 alcohol containing drinks per day drug abuse or addiction head injury heart or circulation problems kidney disease or problems going to the bathroom liver disease lung disease, asthma, or breathing problems an unusual or allergic reaction to acetaminophen, oxycodone, other opioid analgesics, other medicines, foods, dyes, or preservatives or trying to get breast-feeding What should I watch for while using this medicine? Tell your doctor or health lawn care technician if your pain does not go away, if it gets worse, or if you have new or a different type of pain. You may develop tolerance to the medicine. Tolerance means that you will need a higher dose of the medication for pain relief. Tolerance is normal and is expected if you take this medicine for a long time. Do not suddenly stop taking your medicine because you may develop a severe reaction. Your body becomes used to the medicine. This does NOT mean you are addicted. Addiction is a behavior related to getting and using a drug for a non-medical reason. If you have pain, you have a medical reason to take pain medicine. Your doctor will tell you how much medicine to take. If your doctor wants you to stop the medicine, the dose will be slowly lowered over time to avoid any side effects. You may get drowsy or dizzy. Do not drive, use machinery, or do anything that needs mental alertness until you know how this medicine affects you. Do not stand or sit up quickly, especially if you are an older patient. This reduces the risk of dizzy or fainting spells. Alcohol may interfere with the effect of this medicine. Avoid alcoholic drinks. There are different types of narcotic medicines (opiates) for pain. If you take more than one type at the same time, you may have more side effects. Give your health care provider a list of all medicines you use. Your doctor will tell you how much medicine to take. Do not take more medicine than directed. Call emergency for help if you have problems breathing. The medicine will cause constipation. Try to have a bowel movement at least every 2 to 3 days. If you do not have a bowel movement for 3 days, call your doctor or health lawn care technician. Do not take Tylenol (acetaminophen) or medicines that have acetaminophen with this medicine. Too much acetaminophen can be very dangerous. Many nonprescription medicines contain acetaminophen. Always read the labels carefully to avoid taking more acetaminophen. You have been given the following additional information: Pelvic Inflammatory Disease Headache, Unspecified Oxycodone Hydrochloride, Acetaminophen Oral tablet (Electronically signed by Sharon Thacker P.A.-C 04/04/2017 13:49)
--- NOTE | 2017-04-04 13:49 | ED MAR SUMMARY ---
..... Medication Administration Record [facility] [address] [place] [place] [address] Patient: HARLEY ACOSTA Visit ID: [id number] 31y, F Weight: 43.5 kg Height/Length: 66 in BMI: 15.5 ALLERGIES: Aspirin, Reglan, Vicoden Start 19:35 04/03/2017 Melissa Gallo R.N., Stop 22:10 04/03/2017 Melissa Gallo R.N. Medication Administered: IV NS (SALINE), Dose: IV Fluids over 1 minute(s), Rate: 1000 mL/hr, Dispensed: 1000 mL bag, Site: #1 right AC. Medication Ordered: IV NS : initial bolus 1000 mL (1000 mL/hr), then 1000 mL/hr for X1 (NOW); Simón. Given 19:56 04/03/2017 Melissa Gallo R.N. Medication Administered: ZOFRAN [IVP] (ONDANSETRON HCL), Dose: 8 mg IVP over 2 minute(s), Site: #1 right AC. Medication Ordered: Zofran IV 8 mg (NOW). Given 19:57 04/03/2017 Melissa Gallo R.N. Medication Administered: PERCOCET [PO] (OXYCODONE-ACETAMINOPHEN), Dose: 1 tab 5/325 mg Tablets PO. Medication Ordered: Percocet PO 5/325 mg (HIGH ALERT MEDICATION). Given 20:50 04/03/2017 Melissa Gallo R.N. Medication Administered: TORADOL [IVP], Dose: 30 mg IVP over 1 minute(s), Site: #1 right AC. Medication Ordered: Toradol IV 30 mg (NOW). Given 20:55 04/03/2017 Melissa Gallo R.N. Medication Administered: CEFTRIAXONE [IM], Dose: 250 mg IM. Medication Ordered: Ceftriaxone IM 250 mg (NOW). Given 20:58 04/03/2017 Melissa Gallo R.N. Medication Administered: DOXYCYCLINE MONOHYDRATE [PO], Dose: 100 mg Tablets PO. Medication Ordered: Doxycycline Monohydrate PO 100 mg (NOW). Given 21:30 04/03/2017 Melissa Gallo R.N. Medication Administered: DILAUDID [IVP] (HYDROMORPHONE HCL PF), Dose: 1 mg IVP over 1 minute(s), Site: #1 right AC. Medication Ordered: Dilaudid IV 1 mg (HIGH ALERT MEDICATION, NOW). Given 22:05 04/03/2017 Melissa Gallo R.N. Medication Administered: DILAUDID [IVP] (HYDROMORPHONE HCL PF), Dose: 0.5 mg IVP over 1 minute(s), Site: #1 right AC. Medication Ordered: Dilaudid IV 0.5 mg (HIGH ALERT MEDICATION, NOW).
--- NOTE | 2017-04-04 13:49 | ED MAR SUMMARY ---
..... Medication Administration Record [facility] [address] [place] [address] Patient: HARLEY ACOSTA Visit ID: [id number] 31y, F Weight: 43.5 kg Height/Length: 66 in BMI: 15.5 ALLERGIES: Aspirin, Reglan, Vicoden Start 19:35 04/03/2017 Melissa Gallo R.N., Stop 22:10 04/03/2017 Melissa Gallo R.N. Medication Administered: IV NS (SALINE), Dose: IV Fluids over 1 minute(s), Rate: 1000 mL/hr, Dispensed: 1000 mL bag, Site: #1 right AC. Medication Ordered: IV NS : initial bolus 1000 mL (1000 mL/hr), then 1000 mL/hr for X1 (NOW); Simón. Given 19:56 04/03/2017 Melissa Gallo R.N. Medication Administered: ZOFRAN [IVP] (ONDANSETRON HCL), Dose: 8 mg IVP over 2 minute(s), Site: #1 right AC. Medication Ordered: Zofran IV 8 mg (NOW). Given 19:57 04/03/2017 Melissa Gallo R.N. Medication Administered: PERCOCET [PO] (OXYCODONE-ACETAMINOPHEN), Dose: 1 tab 5/325 mg Tablets PO. Medication Ordered: Percocet PO 5/325 mg (HIGH ALERT MEDICATION). Given 20:50 04/03/2017 Meilssa Gallo R.N. Medication Administered: TORADOL [IVP], Dose: 30 mg IVP over 1 minute(s), Site: #1 right AC. Medication Ordered: Toradol IV 30 mg (NOW). Given 20:55 04/03/2017 Melissa Gallo R.N. Medication Administered: CEFTRIAXONE [IM], Dose: 250 mg IM. Medication Ordered: Ceftriaxone IM 250 mg (NOW). Given 20:58 04/03/2017 Melissa Gallo R.N. Medication Administered: DOXYCYCLINE MONOHYDRATE [PO], Dose: 100 mg Tablets PO. Medication Ordered: Doxycycline Monohydrate PO 100 mg (NOW). Given 21:30 04/03/2017 Melissa Gallo R.N. Medication Administered: DILAUDID [IVP] (HYDROMORPHONE HCL PF), Dose: 1 mg IVP over 1 minute(s), Site: #1 right AC. Medication Ordered: Dilaudid IV 1 mg (HIGH ALERT MEDICATION, NOW). Given 22:05 04/03/2017 Melissa Gallo R.N. Medication Administered: DILAUDID [IVP] (HYDROMORPHONE HCL PF), Dose: 0.5 mg IVP over 1 minute(s), Site: #1 right AC. Medication Ordered: Dilaudid IV 0.5 mg (HIGH ALERT MEDICATION, NOW).
--- NOTE | 2017-04-04 13:49 | ED MED RECONCILIATION SUMMARY ---
Patient: HARLEY ACOSTA Medication Reconciliation Report [facility] VisitID: [id number] [place] [address] 31y, F Registration Date/Time: 04/03/2017 Weight: 43.5 kg Height/Length: 66 in. BMI: 15.5 ALLERGIES: Aspirin, Reglan, Vicoden The patient's Home Medications are listed below: THE FOLLOWING MEDICATIONS NEED TO BE RECONCILED: MetroNIDAZOLE Oral has been taking x 2 weeks The source(s) of the original Home Medication information: Not obtained. The following Medications were given to the patient in the Emergency Department: IV NS IV Fluids bolus 0, then 1000 mL/hr, administered: 04/03/2017 7:35:00 PM Zofran [IVP] IVP 8 mg, administered: 04/03/2017 7:56:00 PM Percocet [PO] PO 1 tab, administered: 04/03/2017 7:57:00 PM Toradol [IVP] IVP 30 mg, administered: 04/03/2017 8:50:00 PM Ceftriaxone [IM] IM 250 mg, administered: 04/03/2017 8:55:00 PM DOXYCYCLINE MONOHYDRATE [PO] PO 100 mg, administered: 04/03/2017 8:58:00 PM Dilaudid [IVP] IVP 1 mg, administered: 04/03/2017 9:30:00 PM Dilaudid [IVP] IVP 0.5 mg, administered: 04/03/2017 10:05:00 PM The following Medications were prescribed to the patient: Ibuprofen 800 mg tablets: take 1 tablet orally every 8 hours for 5 days, as needed for pain. Dispense fifteen (15). No refill. -- Sharon Thacker, P.A.-C Percocet 5 mg/325 mg: take 1 tablet orally every 6 hours as needed for pain. Dispense ten (10). No refill. Substitution is permissible. -- Sharon Thacker, P.A.-C Doxycycline 100 mg: Take 1 capsule orally for 10 days. No refill. -- Sharon Thacker, P.A.-C
== END 2017-04-03 22:20 | disposition home or self-care (01) ==
LOC: ED SRH 18:59
DX: N73.9 Female pelvic inflammatory disease, unspecified (principal); R51 Headache; Z79.899 Other long term (current) drug therapy; Z88.5 Allergy status to narcotic agent; Z88.6 Allergy status to analgesic agent; Z88.8 Allergy status to other drugs, medicaments and biological substances
CPT/HCPCS: 90004; 90047; 90469; 93070; 95059